=== PATIENT | female | born 1955 | race Caucasian/White ===

== ENCOUNTER → 2017-08-06 11:45 | Outpatient (CLI) | payer BC, SELFPAY ==
--- NOTE | 2017-08-06 11:45 | DT_ITS ---
This patient was seen during an EMR downtime August 03, 2017 - August 10, 2017. This patient may have a combination of paper and electronic documentation or all paper documentation. All documentation is viewable within the e-chart portion of [employer] for each patient visit.
[2017-08-17 11:25] LABS: HPV Reflexed? NOT INDICATED
== END ==
PROVIDERS: Visit Provider Obstetrics & Gynecology
DX: Z12.4 Encounter for screening for malignant neoplasm of cervix (principal)
CPT/HCPCS: 88175; G0145

== ENCOUNTER → 2017-08-25 12:46 | Outpatient (CLI) | payer BC, SELFPAY ==
--- NOTE | 2017-08-25 12:51 | STE_ITS ---
Reason For Study: Chest Pain Stress Results Protocol: Stress Echocardiogram Maximum Predicted HR: 156 bpm Target HR: 133 bpm% Maximum Pr edicted HR: 88 % DurationHeart Rate Stage (mm:ss) (bpm) BP BASELINE 66 174/90 MARTIN PROTOCOL- STAGE 1 3:00 12 1 170/80 MARTIN PROTOCOL- STAGE 2 2:30 13 7 180/90 RECOVERY 81 160/88 Stress Duration: 5:30 mm:ss Maximum Stress HR: 137 bpmM ETS: 7 Baseline Echocardiogram Findings Stress Echo Wall motion Data Resting WMIntermediate WMStress WM Resting Wall Motion Wall Motion Stress All segments Normal. All segments Hyperkinetic. Ejection Fraction 60 %. Ejection Fraction 70 %. Stress Results Heart rate response: appropriate Blood pressure response: resting hypertension - appropriate response Arrhythmias: isolated PVC during exercise / isolated PAC during recovery Functional capacity: average Stopped secondary to: dyspnea. EKG Data Baseline ECG: NSR. Exercise ECG: no obvious ECG changes. Symptoms with Stress No c/o chest discomfort during exercise / recovery. Interpretation Summary Negative (adequate) Stress Echocardiogram Ordering Physician: Karthikeyan Castro Referring Physician: Karthikeyan Castro Performed By: Brigitte Richmond, PRANAV, RVT
== END ==
PROVIDERS: Family Provider Family Medicine; PCP Family Medicine; Visit Provider Family Medicine
DX: R07.9 Chest pain, unspecified (principal)
CPT/HCPCS: 93017; 93350

== ENCOUNTER → 2017-09-08 11:23 | Outpatient (CLI) | payer BC, SELFPAY ==
[2017-09-08 15:40] LABS: Anion Gap 9 (5-15); BUN 17 mg/dL (7-18); BUN/Creat Ratio 24.4 RATIO (10-20); Calcium,Total 9.5 mg/dL (8.5-10.1); Chloride 102 mmol/L (98-107); EST Glomerular Filtration Rate 90 mL/min (>60); Est Glom Filt Rate - Afr Amer 109 mL/min (>60); Glucose 96 mg/dL (74-106); Potassium 3.8 mmol/L (3.5-5.1); Sodium Level 140 mmol/L (136-145)
== END ==
PROVIDERS: Family Provider Family Medicine; PCP Family Medicine; Visit Provider Nurse Practitioner Adult Health
DX: I10 Essential (primary) hypertension (principal)
CPT/HCPCS: 36415; 80048

== ENCOUNTER → 2018-02-16 09:55 | Outpatient (CLI) | payer BC, SELFPAY ==
[2018-02-16 12:25] LABS: Anion Gap 9 (5-15); BUN 13 mg/dL (7-18); BUN/Creat Ratio 21.2 RATIO (10-20); Calcium,Total 9.5 mg/dL (8.5-10.1); Chloride 103 mmol/L (98-107); Cholesterol 232 mg/dL (200); Creatinine, Serum 0.61 mg/dL (0.55-1.02); EST Glomerular Filtration Rate 104 mL/min (>60); Est Glom Filt Rate - Afr Amer 126 mL/min (>60); Glucose 87 mg/dL (74-106); High Density Lipoprotein 72 mg/dL; Sodium Level 141 mmol/L (136-145); Triglycerides 122 mg/dL; Very Low Density Lipoprotein 24 mg/dL (5-40)
--- OUTSIDE RECORDS SUMMARY | 2018-05-20 17:01 | XMS RPT_ITS ---
:1955 Author Organization OHIP Care Team Providers Name Role Phone Megha Hughes Attending Unavailable Kannan Castro Primary Care Unavailable Jeaneth Justice Attending Unavailable Kannan Castro Attending Unavailable Matthew, Kannan Referring Unavailable Kannan Castro Primary Care Unavailable Megha Hughes Attending Unavailable Castro, Kannan Primary Care Unavailable Clark Newton Attending Unavailable PROBLEMS PROBLEMS DATE TYPE CONDITION / CODE ATTENDING STATUS SOURCE 08/25/2017 Unknown R07.9 - Chest Kannan Castro Active [place] pain, unspecified Community / R07.9(ICD-10) Hospital Repository 08/27/2017 Unknown Z12.4 - Encounter Jeaneth Justice Active Deja for screening for [facility] neoplasm of Repository cervix / Z12.4(ICD-10) PROCEDURES PROCEDURES No Procedure Records FoundRESULTS RESULTS BASIC METABOLIC Collected: 02/16/2018 Status: F Source: DEJA PROFILE (BMP) 9:59 AM [facility] REPOSITORY TYPE CODE TESTS RESULT OUT OF RANGE REFERENCE UNITS LAB L501.0100 74-106 mg/dL Normal GLU 87 Result Comment: Please note revised GLUCOSE reference range effective 2017. LAB L501.1000 7-18 mg/dL Normal BUN 13 LAB L501.1100 0.55-1.02 mg/dL Normal CREAT,SERUM 0.61 Result Comment: The validity of the calculated GFR AND GFRAA in patients over 70 years has not been determined. Clinical correlation is essential. LAB L501.1110 >60 mL/min Normal EST GFR 104 Result Comment: Non- GFR Calc LAB L501.1115 >60 mL/min Normal EST GFR - AA 126 Result Comment: GFR Calc LAB L501.1300 10-20 RATIO High BUN/CRE 21.2 LAB L501.2200 8.5-10.1 mg/dL CA Normal 9.5 LAB L501.5300 136-145 mmol/L NA Normal 141 LAB L501.5600 3.5-5.1 mmol/L K Normal 4.0 LAB L501.5900 98-107 mmol/L CL Normal 103 LAB L501.6100 21.0-32.0 mmol/L Normal CO2 29.0 LAB L501.6200 5-15 Normal GAP 9 Performed By: #### L500.2500, L500.4100 #### [facility] [address], [address] LIPID PROFILE Collected: 02/16/2018 Status: F Source: DEJA 9:59 AM [facility] REPOSITORY TYPE CODE TESTS RESULT OUT OF RANGE REFERENCE UNITS LAB L501.4900 200 mg/dL High CHOL 232 Result Comment: <200 mg/dL Desirable 200-240 mg/dL Borderline >240 mg/dL High Risk LAB L501.5000 mg/dL Normal TRIG 122 Result Comment: The drugs N-Acetylcysteine and Metamizole may falsely depress this assay. Serum Triglycerides Reference Interval Normal <150 mg/dL Borderline high 150 - 199 mg/dL High 200 - 499 mg/dL Very High > or = 500 mg/dL LAB L501.6400 mg/dL Normal HDL 72 Result Comment: The drugs N-Acetylcysteine and Metamizole may falsely depress this assay. Reference Range HDL <40 mg/dL Low HDL Cholesterol HDL >or= 60 mg/dL High HDL Cholesterol LAB L501.6500 0-130 mg/dL High LDL 136 LAB L501.6600 5-40 mg/dL Normal VLDL 24 Performed By: #### L500.2500, L500.4100 #### [facility] [address] [place], [address] BASIC METABOLIC Collected: 09/08/2017 Status: F Source: DEJA PROFILE (BMP) 11:24 AM [facility] REPOSITORY Order Comment: Order Date: 08/27/17 Order Info: 0667-1 - BMP TYPE CODE TESTS RESULT OUT OF RANGE REFERENCE UNITS LAB L501.0100 74-106 mg/dL Normal GLU 96 Result Comment: Please note revised GLUCOSE reference range effective 2017. LAB L501.1000 7-18 mg/dL Normal BUN 17 LAB L501.1100 0.55-1.02 mg/dL Normal CREAT,SERUM 0.70 Result Comment: The validity of the calculated GFR AND GFRAA in patients over 70 years has not been determined. Clinical correlation is essential. LAB L501.1110 >60 mL/min Normal EST GFR 90 Result Comment: Non- GFR Calc LAB L501.1115 >60 mL/min Normal EST GFR - AA 109 Result Comment: GFR Calc LAB L501.1300 10-20 RATIO High BUN/CRE 24.4 LAB L501.2200 8.5-10.1 mg/dL CA Normal 9.5 LAB L501.5300 136-145 mmol/L NA Normal 140 LAB L501.5600 3.5-5.1 mmol/L K Normal 3.8 LAB L501.5900 98-107 mmol/L CL Normal 102 LAB L501.6100 21.0-32.0 mmol/L Normal CO2 29.0 LAB L501.6200 5-15 Normal GAP 9 Performed By: #### L500.2500 #### [facility] [address] [place], [address] STRESS TEST ECHO W/O Observed: 08/25/2017 Status: F Source: [place] CONTRAST 4:49 PM [facility] REPOSITORY [facility] Cardiovascular Services [address] [facility] [place] [address] Stress Test Echo w/o Contrast MR#: [id number] Acct: [id number] Name: KAREN BALLARD Rep #: [id number] : 1955 62 From: Clark Newton MD Primary Care: Kannan Castro MD Status: REG CLI Ordering Dr: Kannan Castro MD Sex: F C Reason For Study: Chest Pain Stress Results Protocol: Stress Echocardiogram Maximum Predicted HR: 156 bpm Target HR: 133 bpm% Maximum Pr edicted HR: 88 % DurationHeart Rate Stage (mm:ss) (bpm) BP BASELINE 66 174/90 MARTIN PROTOCOL- STAGE 1 3:00 12 1 170/80 MARTIN PROTOCOL- STAGE 2 2:30 13 7 180/90 RECOVERY 81 160/88 Stress Duration: 5:30 mm:ss Maximum Stress HR: 137 bpmM ETS: 7 Baseline Echocardiogram Findings Stress Echo Wall motion Data Resting WMIntermediate WMStress WM Resting Wall Motion Wall Motion Stress All segments Normal. All segments Hyperkinetic. Ejection Fraction 60 %. Ejection Fraction 70 %. Stress Results Heart rate response: appropriate Blood pressure response: resting hypertension - appropriate response Arrhythmias: isolated PVC during exercise / isolated PAC during recovery Functional capacity: average Stopped secondary to: dyspnea. EKG Data Baseline ECG: NSR. Exercise ECG: no obvious ECG changes. Symptoms with Stress No c/o chest discomfort during exercise / recovery. Interpretation Summary Negative (adequate) Stress Echocardiogram Ordering Physician: Kannan Castro Referring Physician: Kannan Castro Performed By: Brigitte Richmond RDCS, RVT 08/25/17 8659 Date Clark Newton MD CC: Kannan Castro MD Date Dictated: 08/25/17 1334 Date Transcribed: 08/25/171648 Crocheter Hand: Signed DOWNTIME REPORT Observed: 08/20/2017 Status: F Source: DEJA 2:07 PM [facility] REPOSITORY [facility] Medical Records Department [address] [place] [address] Downtime Report MR#: [id number] Acct: [id number] Name: KAREN BALLARD Rep #: [id number] : 1955 62 From: Jacinto Castro PCP: Status: REG CLI This patient was seen during an EMR downtime August 03, 2017 - August 10, 2017. This patient may have a combination of paper and electronic documentation or all paper documentation. All documentation is viewable within the e-chart portion of [employer] for each patient visit. PAP I-G W/RFX HRHPV Collected: 08/06/2017 Status: F Source: DEJA 11:45 AM [facility] REPOSITORY Order Comment: CYTOLOGY INFORMATION: - CLINICAL INFORMATION: POSTMENOPAUSAL - DATE LMP/MENOPAUSE: POST MENOPAUSE - COLLECTION VIAL: Thin Prep Vial - OFFICE COMMUNICATION PROFESSOR SOURCE: CERVICAL/ENDOCERVICAL - COLLECTION TECHNIQUE: BRUSH/SPATULA Specimen Comment: Source.............Cervix;Endocervix Specimen Comment: Other..............Post Menopausal Specimen Comment: No. of containers..01 ThinPrep Vial Specimen Comment: A duplicate report has been generated due to demographic Specimen Comment: updates. TYPE CODE TESTS RESULT OUT OF RANGE REFERENCE UNITS LAB L7400.0800 . Normal DIAGN Comment Result Comment: NEGATIVE FOR INTRAEPITHELIAL LESION AND MALIGNANCY. LAB L7400.0900 . Normal ADEQ Comment Result Comment: Satisfactory for evaluation. Endocervical and/or squamous metaplastic cells (endocervical component) are present. LAB L7400.1400 . Normal PERFORM Comment Result Comment: [place], Product Safety Professional (ASCP) LAB L7400.2575 . Normal TEST METHOD Comment Result Comment: This liquid based ThinPrep(R) pap test was screened with the use of an image guided system. LAB L7400.2600 . Normal . COMM LAB L7400.2700 . Normal PAPSMR Comment Result Comment: The Pap smear is a screening test designed to aid in the detection of premalignant and malignant conditions of the uterine cervix. It is not a diagnostic procedure and should not be used as the sole means of detecting cervical cancer. Both false-positive and false-negative reports do occur. LAB L7400.2800 . Normal HPV RFLX Comment Result Comment: The HPV DNA reflex criteria were not met with this specimen result therefore, no HPV testing was performed. Performed at: [address] [id number] Oil Well Pumper: Noemi Poe MD, Phone: [phone] Performed By: #### L7400.0350 #### [facility] (refer to report for specific site) refer to report for address and phone number ALLERGIES ALLERGIES DATE TYPE / CODE NAME / CODE REACTION SEVERITY SOURCE 08/29/2014 Drug nickel/F0060 Rash Unknown [facility] Allergy/4160 [address]155(Formerly [facility] [address](SNOMED ) Repository CT) ENCOUNTERS ENCOUNTERS ADMIT/DISCHARGE ACCOUNT ADMITTING ENCOUNTER LOCATION SOURCE NUMBER [facility] 02/16/2018 [id number] Ambulatory Deja Deja 1 [facility] ing:MFPLAB Repository 09/08/2017 [id number] Ambulatory [place] Redmon 7 [facility] ing:MFPLAB Repository 08/25/2017 [id number] Ambulatory [place] Redmon 5 [facility] ing:[facility] Repository 08/25/2017 [id number] Ambulatory BMSBuilding:W Deja 7 [facility] Hospital Repository 08/06/2017 [id number] Ambulatory [place] Red[place] 3 [facility] Hospital ing:[facility]SPEC Repository PAYERS PAYERS ENCOUNTER GUARANTOR PAYER SUBSCRIBER SOURCE 02/16/2018 Karen S Primary Karen S [place] [id number] E Insurance:ANTHEMPolic CosentinoDOB: [place]: [id number] [id number] Repository [address]Unn: (330) Date:8758-73-84SX [phone] () KATALINA SMITH [address]HC: 02/16/2018 Secondary NOT GIVENUNK Deja Insurance:SELF PAY [facility] Number: Effective Repository Date:2018-02-16 09/08/2017 Karen S Primary Karen S [place] [id number] E Insurance:ANTHEMPolic CosentinoDOB: Formerly [facility] [place] Number: [id number], [place] [id number] Repository [address]Cvj: (330) Date:9999-03-36ND [phone] () KATALINA SMITH [address]LS: 09/08/2017 Secondary NOT GIVENUNK Deja Insurance:SELF PAY [facility] Number: Effective Repository Date:2017-09-08 08/25/2017 Karen S Primary Karen S Deja [id number] E Insurance:ANTHEMPolic CosentinoDOB: Formerly [facility] [place] Number: [id number], [place] [id number] Repository [address]Yov: (330) Date:0113-24-25VJ [phone] () KATALINA SMITH [address]WK: 08/25/2017 Secondary NOT GIVENUNK Deja Insurance:SELF PAY [facility] Number: Effective Repository Date:2017-08-21 08/25/2017 Karen S Primary Karen S [place] [id number] E Insurance:ANTHEMPolic CosentinoDOB: Community [place] Number: [id number], [place] [id number] Repository [address]Jfw: (330) Date:0951-00-30WD [phone] () [id number], [place] [address]UL: 08/25/2017 Secondary NOT GIVENUNK Deja Insurance:SELF PAY [facility] Number: Effective Repository Date:2017-08-25 08/06/2017 Karen S Primary Karen S [place] [id number] E Insurance:ANTHEMPolic CosentinoDOB: Formerly [facility] [place] Number: [id number], [place] [id number] Repository [address]Hac: (330) Date:4125-29-17YL [phone] () [place], [place] [address]UD: 08/06/2017 Secondary NOT GIVENUNK Deja Insurance:SELF PAY [facility] Number: Effective Repository Date:2017-08-06
== END ==
PROVIDERS: Family Provider Family Medicine; PCP Family Medicine; Visit Provider Nurse Practitioner Adult Health
DX: Z13.220 Encounter for screening for lipoid disorders (principal); Z13.1 Encounter for screening for diabetes mellitus
CPT/HCPCS: 36415; 80048; 80061

== ENCOUNTER → 2018-09-01 10:41 | Outpatient (CLI) | payer BC, SELFPAY ==
--- NOTE | 2018-09-01 10:44 | BI_ITS ---
MAMMOGRAPHY - BILATERAL SCREENING REASON FOR EXAM: Female, 63 years old. Routine annual screening examination. PERTINENT HISTORY: Aunts with breast cancer. Remote right stereotactic breast biopsy. TECHNIQUE: Digital bilateral breast andres (3D mammographic acquisition) in the CC and MLO projections. 2-D mediolateral oblique (MLO) and craniocaudad (CC) views of both breasts were obtained. CAD: Full Field Digital Mammography with Computer Added Detection was performed. COMPARISON: Comparison is made with prior study dated September 18, 2016. FINDINGS: Breast Composition: The breasts are extremely dense, which lowers the sensitivity of mammography. There are no dominant masses or suspicious calcifications. A tissue clip marker is seen in the slightly upper medial aspect of the right breast. Stable appearance of the bilateral axillary lymph nodes. No other significant abnormalities are identified. There has been no significant change since the prior study. BI/SCREEN MAMM (CAD) W/ANDRES BILAT IMPRESSION: Stable bilateral screening mammogram. Yearly follow-up mammogram recommended. (A) ASSESSMENT CATEGORY: BIRADS Category 2: Benign. A letter regarding these results will be sent to the patient by the facility within 30 days. Approximately 10% of breast cancers are not detected by mammography. A normal mammogram should not delay biopsy of a clinically suspicious abnormality. [id number] Electronically Signed: Donovan Bullard, at 12:31 EDT , Service support ,
== END ==
PROVIDERS: Family Provider Family Medicine; PCP Family Medicine; Referring Provider Obstetrics & Gynecology; Visit Provider Obstetrics & Gynecology
DX: Z12.31 Encounter for screening mammogram for malignant neoplasm of breast (principal)
CPT/HCPCS: 77063; 77067

== ENCOUNTER → 2019-02-16 11:41 | Outpatient (CLI) | payer MEDICARE, BC, SELFPAY ==
[2019-02-16 14:04] LABS: Absolute Neutrophil Count 3.9 X10^3/uL (2.0-7.7); Basophil# 0.03 X10^3/uL; Basophil% 0.5 % (0-1); Eosinophils% 3.3 % (0-5); Hematocrit 42.4 % (37-47); Hemoglobin 14.5 g/dL (12.0-15.0); Mean Corp Hgb Conc 34.2 g/dL (32-36); Mean Corpuscular Hgb 33.7 pg (27.0-32.0); Mean Corpuscular Volume 98.6 fL (81-99); Mean Platelet Vol. 9.8 fl (6.2-12.0); Monocyte# 0.62 X10^3/uL; Monocyte% 10.4 % (0-10); NRBC Flagged by Analyzer 0 % (0-5); Neutrophil # 3.92 X10^3/uL (2.7-7.7); Neutrophil % 65.5 % (47-70); Platelet Count 355 K/mm3 (150-450); RBC Distribution Width SD 46.5 fl (35.1-43.9)
[2019-02-16 14:25] LABS: ALB/GLOB Ratio 1.2 RATIO (0.9-2.4); AST(SGOT) 16 U/L (15-37); Alanine Aminotransfer ALT/SGPT 20 U/L (13-56); Albumin, Serum 4.1 g/dL (3.2-5.0); Alkaline Phosphatase 68 U/L (45-117); Anion Gap 6 (5-15); BUN 15 mg/dL (7-18); BUN/Creat Ratio 23.1 RATIO (10-20); Calcium,Total 9.5 mg/dL (8.5-10.1); Chloride 103 mmol/L (98-107); Creatinine, Serum 0.65 mg/dL (0.55-1.02); EST Glomerular Filtration Rate 97 mL/min (>60); Est Glom Filt Rate - Afr Amer 117 mL/min (>60); Globulin 3.4 g/dL (2.2-4.2); Glucose 97 mg/dL (74-106); Protein, Total 7.5 g/dL (6.4-8.2); Sodium Level 138 mmol/L (136-145); Thyroid Stim Hormone (TSH) 0.78 uIU/mL (0.358-3.74)
== END ==
PROVIDERS: Family Provider Family Medicine; PCP Family Medicine; Referring Provider Family Medicine; Visit Provider Nurse Practitioner Adult Health
DX: R53.83 Other fatigue (principal)
CPT/HCPCS: 36415; 80053; 84443; 85025

== ENCOUNTER → 2019-03-16 15:05 | Outpatient (CLI) | payer MEDICARE, BC, SELFPAY ==
--- NOTE | 2019-03-16 15:10 | ECHOD_ITS ---
Reason For Study: MURMUR Procedure This was a 2D Doppler, Color Flow transthoracic echocardiogram. Exam performed in department. Left Ventricle Normal size and thickness. The estimated ejection fraction is 65 %. Stage 1 diastolic dysfunction. No regional wall motion abnormalities noted. Right Ventricle Normal size and thickness. Normal systolic function. Atria Normal left atrium. Normal right atrium. Normal atrial septum. Mitral Valve The mitral valve is structurally normal. No prolapse or stenosis seen. Tricuspid Valve Normal tricuspid valve. Trivial tricuspid valve insufficiency. Right ventricular systolic pressure estimated to be 32 mmHg. Aortic Valve Trisinus/trileaflet aortic valve. Aortic sclerosis, no stenosis. Pulmonic Valve Normal pulmonic valve. Great Vessels Normal aortic root. Normal arch. Normal inferior vena cava. Inferior vena cava collapse with sniff. Pericardium/Pleural No pericardial effusion. MMode/2D Measurements & Calculations LVIDd: 3.9 cm IVSd: 0.89 cm Ao root diam: 3.0 cm LVIDs: 2.6 cm LVPWd: 0.89 cm RVDd: 2.9 cm FS: 32.1 % LAV(MOD-bp): 41.4 ml LVAd ap4: 25.1 cm2 SV(MOD-sp4): 41.6 ml LAV(MOD-bp) Indexed: 28.6 ml/m2 EDV(MOD-sp4): 71.1 ml LAV(MOD-sp2): 32.8 ml EDV(sp4-el): 75.5 ml LAV(MOD-sp4): 46.0 ml LVAs ap4: 14.1 cm2 ESV(MOD-sp4): 29.4 ml ESV(sp4-el): 30.4 ml EF(MOD-sp4): 58.6 % EF(sp4-el): 59.8 % SV(sp4-el): 45.2 ml LA A4 area: 17.0 cm2 LA dimension(2D): 2.9 cm RA A4 area: 11.0 cm2 Time Measurements MV dec time: 0.17 sec Doppler Measurements & Calculations MV E max francis: 96.7 cm/sec Lat Peak E' Francis: 8.6 cm/sec Med Peak E' Francis: 8.3 cm/sec MV A max francis: 115.7 cm/sec E/E' lat: 11.2 E/E' med: 11.7 MV E/A: 0.84 Ao V2 max: 147.3 cm/sec LV V1 max: 127.7 cm/sec PA V2 max: 103.4 cm/sec Ao max P.7 mmHg LV V1 max P.5 mmHg TR max francis: 238.3 cm/sec TR max P.8 mmHg Interpretation Summary The estimated ejection fraction is 65 %. Stage 1 diastolic dysfunction. Trivial tricuspid valve insufficiency. Right ventricular systolic pressure estimated to be 32 mmHg. Compared to echo report dated 09/11/2006, LV function has remained the same but RVSP has increased from 20 to 32 mmHg. Ordering Physician: Karthikeyan Campos Referring Physician: GRAY HOUSTON Performed By: Julieth Bartlett, PRANAV, RVT
== END ==
PROVIDERS: Family Provider Family Medicine; PCP Family Medicine; Referring Provider Family Medicine; Visit Provider Family Medicine
DX: R01.1 Cardiac murmur, unspecified (principal)
CPT/HCPCS: 93306

== ENCOUNTER → 2019-04-08 | Outpatient (CLI) | payer MEDICARE, BC, SELFPAY ==
[2019-04-08 17:40] LABS: Cholesterol 269 mg/dL (200); High Density Lipoprotein 95 mg/dL; Magnesium 1.9 mg/dL (1.6-2.6); Triglycerides 60 mg/dL; Very Low Density Lipoprotein 12 mg/dL (5-40)
== END | disposition home or self-care (01) ==
LOC: MTLAB 15:28
PROVIDERS: PCP Family Medicine; Referring Provider Family Medicine; Visit Provider Family Medicine
DX: E55.9 Vitamin D deficiency, unspecified (principal); E78.5 Hyperlipidemia, unspecified; R00.2 Palpitations
CPT/HCPCS: 36415; 80061; 82306; 83735

== ENCOUNTER → 2019-07-06 | Outpatient (CLI) | payer MEDICARE, BC, SELFPAY ==
[2019-07-06 17:46] LABS: Absolute Lymphocyte Count 1.42 X10^3/uL (0.83-4.51); Absolute Neutrophil Count 4.5 X10^3/uL (2.0-7.7); Basophil# 0.03 X10^3/uL; Basophil% 0.5 % (0-1); Eosinophil# 0.05 X10^3/uL; Eosinophils% 0.8 % (0-5); Hematocrit 42.4 % (37-47); Hemoglobin 14.4 g/dL (12.0-15.0); Lymphocyte # 1.42 X10^3/ul (4.0); Lymphocyte % 21.4 % (19-41); Mean Platelet Vol. 9.6 fl (6.2-12.0); Monocyte# 0.63 X10^3/uL; Monocyte% 9.5 % (0-10); NRBC Flagged by Analyzer 0 % (0-5); Neutrophil # 4.48 X10^3/uL (2.7-7.7); Neutrophil % 67.5 % (47-70); Platelet Count 333 K/mm3 (150-450); RBC Distribution Width CV 13.2 % (11.6-14.6); RBC Distribution Width SD 46.7 fl (35.1-43.9); Red Blood Count 4.37 M/mm3 (4.2-5.4); White Blood Count 6.6 K/mm3 (4.4-11.0)
[2019-07-06 18:21] LABS: ALB/GLOB Ratio 1.3 RATIO (0.9-2.4); AST(SGOT) 18 U/L (15-37); Alanine Aminotransfer ALT/SGPT 18 U/L (13-56); Albumin, Serum 4.3 g/dL (3.2-5.0); Alkaline Phosphatase 85 U/L (45-117); Anion Gap 8 (5-15); BUN 11 mg/dL (7-18); BUN/Creat Ratio 17.9 RATIO (10-20); Calcium,Total 9.7 mg/dL (8.5-10.1); Chloride 99 mmol/L (98-107); Cholesterol 263 mg/dL (200); Creatinine, Serum 0.62 mg/dL (0.55-1.02); EST Glomerular Filtration Rate 103 mL/min (>60); Est Glom Filt Rate - Afr Amer 125 mL/min (>60); Globulin 3.3 g/dL (2.2-4.2); Glucose 94 mg/dL (74-106); High Density Lipoprotein 85 mg/dL; Potassium 3.8 mmol/L (3.5-5.1); Protein, Total 7.6 g/dL (6.4-8.2); Sodium Level 136 mmol/L (136-145); Triglycerides 164 mg/dL; Very Low Density Lipoprotein 33 mg/dL (5-40)
== END | disposition home or self-care (01) ==
LOC: MFPLAB 15:43
PROVIDERS: Family Medicine; PCP Family Medicine; Visit Provider Family Medicine
DX: I10 Essential (primary) hypertension (principal); E78.5 Hyperlipidemia, unspecified
CPT/HCPCS: 36415; 80053; 80061; 85025

== ENCOUNTER → 2020-02-03 11:35 | Outpatient (CLI) | payer MEDICARE, BC, SELFPAY ==
[2020-02-03 15:09] LABS: Absolute Lymphocyte Count 1.18 X10^3/uL (0.83-4.51); Absolute Neutrophil Count 2.7 X10^3/uL (2.0-7.7); Basophil# 0.05 X10^3/uL; Basophil% 1.1 % (0-1); Eosinophil# 0.18 X10^3/uL; Eosinophils% 3.9 % (0-5); Hemoglobin 14.7 g/dL (12.0-15.0); Lymphocyte # 1.18 X10^3/ul (4.0); Lymphocyte % 25.3 % (19-41); Mean Corp Hgb Conc 32.7 g/dL (32-36); Mean Corpuscular Volume 100.9 fL (81-99); Mean Platelet Vol. 10.1 fl (6.2-12.0); Monocyte# 0.59 X10^3/uL; Monocyte% 12.6 % (0-10); NRBC Flagged by Analyzer 0 % (0-5); Neutrophil # 2.66 X10^3/uL (2.7-7.7); Neutrophil % 56.9 % (47-70); Platelet Count 382 K/mm3 (150-450); RBC Distribution Width CV 13.4 % (11.6-14.6); RBC Distribution Width SD 49.6 fl (35.1-43.9); Red Blood Count 4.46 M/mm3 (4.2-5.4); White Blood Count 4.7 K/mm3 (4.4-11.0)
[2020-02-03 15:48] LABS: ALB/GLOB Ratio 1.1 RATIO (0.9-2.4); AST(SGOT) 17 U/L (15-37); Alanine Aminotransfer ALT/SGPT 18 U/L (13-56); Albumin, Serum 4.1 g/dL (3.2-5.0); Alkaline Phosphatase 82 U/L (45-117); Anion Gap 8 (5-15); BUN 15 mg/dL (7-18); Calcium,Total 9.7 mg/dL (8.5-10.1); Chloride 102 mmol/L (98-107); Cholesterol 258 mg/dL (200); Creatinine, Serum 0.65 mg/dL (0.55-1.02); EST Glomerular Filtration Rate 96 mL/min (>60); Est Glom Filt Rate - Afr Amer 116 mL/min (>60); Globulin 3.6 g/dL (2.2-4.2); Glucose 101 mg/dL (74-106); High Density Lipoprotein 74 mg/dL; Potassium 3.6 mmol/L (3.5-5.1); Protein, Total 7.7 g/dL (6.4-8.2); Sodium Level 138 mmol/L (136-145); Triglycerides 141 mg/dL; Very Low Density Lipoprotein 28 mg/dL (5-40)
== END ==
PROVIDERS: Family Medicine; PCP Family Medicine; Referring Provider Family Medicine; Visit Provider Family Medicine
DX: I10 Essential (primary) hypertension (principal); E78.5 Hyperlipidemia, unspecified; E55.9 Vitamin D deficiency, unspecified
CPT/HCPCS: 36415; 80053; 80061; 82306; 85025

== ENCOUNTER → 2020-02-14 12:13 | Outpatient (CLI) | payer MEDICARE, BC, SELFPAY ==
--- NOTE | 2020-02-14 12:17 | CT_ITS ---
STUDY: LOW DOSE CT LUNG CANCER SCREENING REASON FOR EXAM: Female, 64 years old. TOBACCO ABUSE, 50 YR SMOKER X 1 PPD, ST=972, BREAST BX DONE-BENIGN RADIATION DOSAGE (If Supplied By Facility): CTDIvol = ( 2.01 ) mGy, DLP = ( 62.68 ) mGycm TECHNIQUE: No contrast was administered. Low dose technique was utilized (average mAS-38 and kVp 120). 1.25 mm axial source images with a slice interval of 1.25-mm were reconstructed in lung windows. 2.5 mm axial source images with a slice interval of 2.5-mm were reconstructed in lung windows. 5.0 mm axial source images with a slice interval of 5.0-mm were reconstructed in soft tissue windows. Nodule measured using lung windows on PACS and/or independent workstation with automated measurement of minimum and maximum diameter. Nodule measurement reported as average diameter rounded to the nearest whole number. Growth is defined as an increase ins size of greater than 1.5 mm. COMPARISON: None. NODULES: No suspicious nodules are seen. Emphysema: Minimal linear scarring in the anterior medial aspect of the right middle lobe. There is a 9.4 mm bulla in the left lower lobe. Endobronchial lesion: Aorta: Calcific plaque at the level of the aortic arch. Coronary arteries: Coronary artery calcification. Heart: Unremarkable. Pulmonary artery: Unremarkable. Mediastinal nodes: Calcified right hilar lymph nodes. Other chest and abdominal findings: CT/Low Dose CT Lung Screening IMPRESSION: Lung-RADS category 2 - Continue annual screening with LDCT in 12 months. IMPORTANT NOTES FOR USE: ACR Lung-RADS Version 1.0 Assessment Categories Release Date: June 27, 2013 Category: Coded 0-4 bases on nodule(s) with highest degree of suspicion. Negative screen is defined as categories 1 and 2; a positive screen is defined as categories 3 and 4. Category 3 and 4A nodules that are unchanged on interval CT should be coded as category 2, and individuals returned to screening in 12 months. Category 4X: Category 3 or 4 nodules with additional imaging findings that increase the suspicion of lung cancer, such as spiculation, GGN that doubles in size in 1 year, enlarged lymph notes, etc. Category Modifiers: S (significant finding unrelated to lung cancer) and C (prior history of treated lung cancer) may be added to the 0-4 Lung-RADS Electronically Signed: Donovan Bullard, at 13:06 EST , Service support ,
== END ==
PROVIDERS: PCP Family Medicine; Referring Provider Family Medicine; Visit Provider Family Medicine
DX: F17.210 Nicotine dependence, cigarettes, uncomplicated (principal); Z12.2 Encounter for screening for malignant neoplasm of respiratory organs
CPT/HCPCS: G0297

== ENCOUNTER → 2020-03-29 09:23 | Outpatient (CLI) | payer MEDICARE, BC, SELFPAY ==
--- NOTE | 2020-03-29 12:39 | PFT ---
INTRODUCTION: The patient is a 65-year-old female that presents for pulmonary function studies secondary to a diagnosis of shortness of breath. Respiratory therapy reports good patient effort. Bronchodilators were used during testing. INTERPRETATION: Forced expiration spirometry demonstrates no evidence of a large airways obstructive ventilatory defect. There was no significant response to aerosolized bronchodilators, based upon strict ATS criteria. Spirograms are of good quality and plateau normally. Body plethysmography was performed and reveals lung volumes to be within normal limits. Diffusing capacity by single breath CO is also within normal limits at 80% of predicted. IMPRESSION: Grossly normal PFTs without any evidence of COPD.
== END ==
PROVIDERS: PCP Family Medicine; Referring Provider Family Medicine; Visit Provider Family Medicine
DX: R06.02 Shortness of breath (principal)
CPT/HCPCS: 94060; 94726; 94729

== ENCOUNTER → 2020-06-26 | Outpatient (CLI) | payer MEDICARE, BC, SELFPAY | END | disposition home or self-care (01) | PROVIDERS: Visit Provider Family Medicine | DX: J01.90 Acute sinusitis, unspecified (principal) | CPT/HCPCS: 87635; U0002 ==

== ENCOUNTER → 2020-11-02 14:28 | Outpatient (CLI) | payer MEDICARE, BC, SELFPAY ==
[2020-11-02 14:30] LABS: Bacteria 0 SEEN /hpf (None Seen); Mucous, Urine 0 SEEN /hpf (<or=2+); Red Blood Cells-Urine 0 SEEN /hpf (0-5); Squamous Epithelial Cells - UA 0 SEEN /hpf (5-10); White Blood Cells 0 SEEN /hpf (0-5)
[2020-11-02 17:38] LABS: Basophil# 0.06 X10^3/uL; Basophil% 0.7 % (0-1); Eosinophils% 1.2 % (0-5); Hematocrit 42.2 % (37-47); Hemoglobin 14.2 g/dL (12.0-15.0); Lymphocyte % 16.8 % (19-41); Mean Corp Hgb Conc 33.6 g/dL (32-36); Mean Corpuscular Hgb 33.6 pg (27.0-32.0); Mean Corpuscular Volume 99.8 fL (81-99); Mean Platelet Vol. 10.1 fl (6.2-12.0); Monocyte# 0.71 X10^3/uL; Monocyte% 8.5 % (0-10); NRBC Flagged by Analyzer 0 % (0-5); Neutrophil # 6.04 X10^3/uL (2.7-7.7); Neutrophil % 72.6 % (47-70); Platelet Count 396 K/mm3 (150-450); RBC Distribution Width CV 13.6 % (11.6-14.6); RBC Distribution Width SD 49.9 fl (35.1-43.9); Red Blood Count 4.23 M/mm3 (4.2-5.4); White Blood Count 8.3 K/mm3 (4.4-11.0)
[2020-11-02 17:42] LABS: Color, Urine Straw (Yellow); Glucose, Dipstick Normal (Normal); Ketone-Dipstick Negative (Negative); Leukocyte Esterase-Dipstick 25 /ul (Negative); Nitrite-Dipstick Negative (Negative); Occult Blood-Urine Negative /ul (Negative); Protein-Dipstick Negative (Negative); Specific Gravity, Urine 1.005 (1.002-1.030); Urine Bilirubin Dipstick Negative (Negative); Urine Clarity Clear (Clear); Urine Urobilinogen Normal (Normal)
[2020-11-02 17:52] LABS: Vitamin D,25 Hydroxy 48.4 ng/mL
[2020-11-02 18:07] LABS: ALB/GLOB Ratio 1.1 RATIO (0.9-2.4); AST(SGOT) 16 U/L (15-37); Alanine Aminotransfer ALT/SGPT 26 U/L (13-56); Alkaline Phosphatase 75 U/L (45-117); Anion Gap 4 (5-15); BUN 11 mg/dL (7-18); BUN/Creat Ratio 17.2 RATIO (10-20); Calcium,Total 9.2 mg/dL (8.5-10.1); Chloride 104 mmol/L (98-107); Cholesterol 226 mg/dL (200); Creatinine, Serum 0.64 mg/dL (0.55-1.02); EST Glomerular Filtration Rate 99 mL/min (>60); Est Glom Filt Rate - Afr Amer 119 mL/min (>60); Globulin 3.5 g/dL (2.2-4.2); Glucose 100 mg/dL (74-106); High Density Lipoprotein 80 mg/dL; Magnesium 1.9 mg/dL (1.6-2.6); Potassium 3.8 mmol/L (3.5-5.1); Protein, Total 7.5 g/dL (6.4-8.2); Sodium Level 137 mmol/L (136-145); Thyroid Stim Hormone (TSH) 0.62 uIU/mL (0.358-3.74); Triglycerides 77 mg/dL; Very Low Density Lipoprotein 15 mg/dL (5-40)
== END ==
PROVIDERS: PCP Family Medicine; Referring Provider Family Medicine; Visit Provider Family Medicine
DX: E78.5 Hyperlipidemia, unspecified (principal); E55.9 Vitamin D deficiency, unspecified; R00.2 Palpitations
CPT/HCPCS: 36415; 80053; 80061; 81001; 82306; 83735; 84443; 85025

== ENCOUNTER 2021-04-02 10:22 | Outpatient (CLI) | payer MEDICARE, BC, SELFPAY ==
--- NOTE | 2021-04-02 10:28 | BI_ITS ---
MAMMOGRAPHY - BILATERAL SCREENING REASON FOR EXAM: Female, 66 years old. Routine annual screening examination. PERTINENT HISTORY: Aunts with breast cancer. Remote right stereotactic breast biopsy. TECHNIQUE: Digital bilateral breast andres (3D mammographic acquisition) in the CC and MLO projections. 2-D mediolateral oblique (MLO) and craniocaudad (CC) views of both breasts were obtained. CAD: Full Field Digital Mammography with Computer Added Detection was performed. COMPARISON: Comparison is made with prior study dated 09/01/2018 and 09/18/2016. FINDINGS: Breast Composition: The breasts are extremely dense, which lowers the sensitivity of mammography. There are no dominant masses or suspicious calcifications. Stable benign-appearing bilateral axillary lymph nodes. A tissue clip marker is once again seen in the slightly upper medial aspect of the right breast. No other significant abnormalities are identified. There has been no significant change since the prior study. BI/SCRN MAMM (CAD)W/ANDRES BILAT IMPRESSION: Stable bilateral screening mammogram. Yearly follow-up mammogram recommended. (A) ASSESSMENT CATEGORY: BIRADS Category 2: Benign. A letter regarding these results will be sent to the patient by the facility within 30 days. Approximately 10% of breast cancers are not detected by mammography. A normal mammogram should not delay biopsy of a clinically suspicious abnormality. [id number] Electronically Signed: Donovan Bullard MD at 12:14 EST ,
--- NOTE | 2021-04-02 10:32 | BD_ITS ---
STUDY: DUAL ENERGY X-RAY ABSORPTIOMETRY / DXA REASON FOR EXAM: Female, 66 years old. M810 TECHNIQUE: Bone Mineral Density (BMD) measurements of lumbar spine and bilateral hips were obtained. COMPARISON: None. FINDINGS: Lumbar Spine (L1-L4): g/cm2 (0.851) / T-score (-1.8) / Z-score (0.2) Findings are suggestive of osteopenia with a moderate fracture risk. Left Femur Total: g/cm2 (0.802) / T-score (-1.2) / Z-score (0.2) Left Femoral Neck: g/cm2 (0.638) / T-score (-1.9) / Z-score (-0.2) Right Femur Total: g/cm2 (0.819) / T-score (-1.0) / Z-score (0.4) Right Femoral Neck: g/cm2 (0.643) / T-score (-1.9) / Z-score (-0.2) BD/Dexa Bone Density Study IMPRESSION: The patient is considered osteopenic as outlined below according to World Rami[employer] Organization (WHO) criteria with a moderate fracture risk. Reference Information: The T-score is the number of standard deviations above or below the standard which is normal for young adults at their peak bone mineral density. The World Health Organization (WHO) interprets the T-scores as follows: Above -1 Normal bone density Between -1 and -2.5 Osteopenia Equal to / or below -2.5 Osteoporosis As a practical clinical guideline, osteopenia may be graded as follows: Mild -1 through -1.5 Moderate -1.6 through -2.0 Severe -2.1 through -2.4 The Z-score is the number of standard deviations above or below age-matched controls. A Z-score of less than -1.5 would be considered abnormal. References: 1. NIH Osteoporosis and Related Bone Diseases www osteo.org 2. International Society for Clinical Densitometry www iscd.org 3. National Osteoporosis Foundation www nof.org Electronically Signed: Donovan Bullard MD at 15:48 EST ,
== END 2021-04-02 23:59 | disposition short-term general hospital (02) ==
LOC: OPBD 10:25
PROVIDERS: PCP Family Medicine; Visit Provider Family Medicine
DX: Z12.31 Encounter for screening mammogram for malignant neoplasm of breast (principal); M81.0 Age-related osteoporosis without current pathological fracture
CPT/HCPCS: 77063; 77067; 77080

== ENCOUNTER 2021-04-23 18:41 | Outpatient (CLI) | payer MEDICARE, BC, SELFPAY ==
--- NOTE | 2021-04-23 19:01 | CT_ITS ---
STUDY: LOW DOSE CT LUNG CANCER SCREENING REASON FOR EXAM: Female, 66 years old. LUNG CANCER SCREENING. Patient smoked 1 pack per day for 45 years. RADIATION DOSAGE (If Supplied By Facility): CTDIvol = ( 2.01 ) mGy, DLP = ( 64.19 ) mGycm TECHNIQUE: No contrast was administered. Low dose technique was utilized (average mAS-38 and kVp 120). 1.25 mm axial source images with a slice interval of 1.25-mm were reconstructed in lung windows. 2.5 mm axial source images with a slice interval of 2.5-mm were reconstructed in lung windows. 5.0 mm axial source images with a slice interval of 5.0-mm were reconstructed in soft tissue windows. Nodule measured using lung windows on PACS and/or independent workstation with automated measurement of minimum and maximum diameter. Nodule measurement reported as average diameter rounded to the nearest whole number. Growth is defined as an increase ins size of greater than 1.5 mm. COMPARISON: Comparison is made with prior study dated 02/14/2020. NODULES: No suspicious nodules are seen. Emphysema: Minimal linear scarring in the anterior aspect of the right middle lobe as well as in the posterior medial segment of the left lower lobe. Endobronchial lesion: None Aorta: Calcific plaques. Coronary arteries: Mild coronary artery calcifications. Heart: Unremarkable Pulmonary artery: Unremarkable Mediastinal nodes: Calcified right hilar lymph nodes. Other chest and abdominal findings: CT/Low Dose CT Lung Screening IMPRESSION: Lung-RADS category 2 - Continue annual screening with LDCT in 12 months. IMPORTANT NOTES FOR USE: ACR Lung-RADS Version 1.1 Assessment Categories Release Date: 2018 Category: Coded 0-4 bases on nodule(s) with highest degree of suspicion. Negative screen is defined as categories 1 and 2; a positive screen is defined as categories 3 and 4. Category 3 and 4A nodules that are unchanged on interval CT should be coded as category 2, and individuals returned to screening in 12 months. Category 4X: Category 3 or 4 nodules with additional imaging findings that increase the suspicion of lung cancer, such as spiculation, GGN that doubles in size in 1 year, enlarged lymph notes, etc. Category Modifiers: S (significant finding unrelated to lung cancer) Electronically Signed: Donovan Bullard MD at 9:13 EST ,
== END 2021-04-23 23:59 | disposition home or self-care (01) ==
LOC: CT 18:45
PROVIDERS: PCP Family Medicine; Visit Provider Nurse Practitioner Family
DX: Z12.2 Encounter for screening for malignant neoplasm of respiratory organs (principal); F17.210 Nicotine dependence, cigarettes, uncomplicated
CPT/HCPCS: 71271

== ENCOUNTER 2021-04-24 11:10 | Outpatient (CLI) | payer MEDICARE, BC, SELFPAY ==
[2021-04-24 11:29] LABS: Bacteria 0 SEEN /hpf (None Seen); Mucous, Urine 0 SEEN /hpf (<or=2+); Red Blood Cells-Urine 0 SEEN /hpf (0-5)
[2021-04-24 12:17] LABS: Color, Urine Yellow (Yellow); Glucose, Dipstick Normal (Normal); Ketone-Dipstick Negative (Negative); Leukocyte Esterase-Dipstick 500 /ul (Negative); Nitrite-Dipstick Negative (Negative); Occult Blood-Urine Negative /ul (Negative); Protein-Dipstick Negative (Negative); Specific Gravity, Urine 1.015 (1.002-1.030); Urine Bilirubin Dipstick Negative (Negative); Urine Clarity Sl. Cloudy (Clear); Urine Urobilinogen Normal (Normal)
[2021-04-24 12:21] LABS: Absolute Lymphocyte Count 1.51 X10^3/uL (0.83-4.51); Absolute Neutrophil Count 4.4 X10^3/uL (2.0-7.7); Basophil# 0.04 X10^3/uL; Basophil% 0.6 % (0-1); Eosinophil# 0.29 X10^3/uL; Eosinophils% 4.1 % (0-5); Hematocrit 42.7 % (37-47); Hemoglobin 14.1 g/dL (12.0-15.0); Lymphocyte # 1.51 X10^3/ul (0.83-4.51); Lymphocyte % 21.5 % (19-41); Mean Corpuscular Hgb 32.6 pg (27.0-32.0); Mean Corpuscular Volume 98.8 fL (81-99); Monocyte# 0.73 X10^3/uL; Monocyte% 10.4 % (0-10); NRBC Flagged by Analyzer 0 % (0-5); Neutrophil # 4.42 X10^3/uL (2.7-7.7); Neutrophil % 63.1 % (47-70); Platelet Count 324 K/mm3 (150-450); RBC Distribution Width CV 13.5 % (11.6-14.6); RBC Distribution Width SD 48.7 fl (35.1-43.9); Red Blood Count 4.32 M/mm3 (4.2-5.4)
[2021-04-24 12:26] LABS: Squamous Epithelial Cells - UA 0-5 SEEN /hpf (5-10); White Blood Cells 0-5 SEEN /hpf (0-5)
[2021-04-24 12:47] LABS: Vitamin D,25 Hydroxy 67.4 ng/mL
[2021-04-24 12:50] LABS: ALB/GLOB Ratio 1.1 RATIO (0.9-2.4); AST(SGOT) 13 U/L (15-37); Alanine Aminotransfer ALT/SGPT 17 U/L (13-56); Alkaline Phosphatase 76 U/L (45-117); Anion Gap 6 (5-15); BUN 16 mg/dL (7-18); BUN/Creat Ratio 28.5 RATIO (10-20); Calcium,Total 9.4 mg/dL (8.5-10.1); Chloride 103 mmol/L (98-107); Cholesterol 245 mg/dL (200); Creatinine, Serum 0.56 mg/dL (0.55-1.02); EST Glomerular Filtration Rate 114 mL/min (>60); Est Glom Filt Rate - Afr Amer 138 mL/min (>60); Globulin 3.6 g/dL (2.2-4.2); Glucose 104 mg/dL (74-106); High Density Lipoprotein 74 mg/dL; Potassium 3.7 mmol/L (3.5-5.1); Protein, Total 7.6 g/dL (6.4-8.2); Sodium Level 137 mmol/L (136-145); Triglycerides 183 mg/dL; Very Low Density Lipoprotein 37 mg/dL (5-40)
== END 2021-04-24 23:59 | disposition home or self-care (01) ==
LOC: MFPLAB 11:22
PROVIDERS: PCP Family Medicine; Referring Provider Family Medicine; Visit Provider Family Medicine
DX: I10 Essential (primary) hypertension (principal); E78.5 Hyperlipidemia, unspecified; E55.9 Vitamin D deficiency, unspecified
CPT/HCPCS: 36415; 80053; 80061; 81001; 82306; 85025

== ENCOUNTER → 2022-01-10 | Outpatient (CLI) | payer MEDICARE, BC, SELFPAY ==
[2022-01-10 09:06] LABS: Red Blood Cells-Urine 0 SEEN /hpf (0-5)
[2022-01-10 09:56] LABS: Absolute Neutrophil Count 3.5 X10^3/uL (2.0-7.7); Basophil# 0.06 X10^3/uL; Basophil% 1.1 % (0-1); Eosinophil# 0.22 X10^3/uL; Eosinophils% 3.9 % (0-5); Hematocrit 41.1 % (37-47); Hemoglobin 13.8 g/dL (12.0-15.0); Lymphocyte % 21.2 % (19-41); Mean Corp Hgb Conc 33.6 g/dL (32-36); Mean Corpuscular Hgb 34.2 pg (27.0-32.0); Mean Corpuscular Volume 101.7 fL (81-99); Mean Platelet Vol. 9.8 fl (6.2-12.0); Monocyte# 0.63 X10^3/uL; Monocyte% 11.1 % (0-10); NRBC Flagged by Analyzer 0 % (0-5); Neutrophil # 3.54 X10^3/uL (2.7-7.7); Neutrophil % 62.5 % (47-70); Platelet Count 317 K/mm3 (150-450); RBC Distribution Width CV 13.4 % (11.6-14.6); RBC Distribution Width SD 50.4 fl (35.1-43.9); Red Blood Count 4.04 M/mm3 (4.2-5.4); White Blood Count 5.7 K/mm3 (4.4-11.0)
[2022-01-10 10:00] LABS: Color, Urine Yellow (Yellow); Glucose, Dipstick Normal (Normal); Ketone-Dipstick Negative (Negative); Leukocyte Esterase-Dipstick 500 /ul (Negative); Nitrite-Dipstick Negative (Negative); Occult Blood-Urine Negative /ul (Negative); Protein-Dipstick Negative (Negative); Specific Gravity, Urine 1.015 (1.002-1.030); Urine Bilirubin Dipstick Negative (Negative); Urine Clarity Clear (Clear); Urine Urobilinogen Normal (Normal)
[2022-01-10 10:11] LABS: ALB/GLOB Ratio 1.1 RATIO (0.9-2.4); AST(SGOT) 14 U/L (15-37); Alanine Aminotransfer ALT/SGPT 17 U/L (13-56); Albumin, Serum 3.6 g/dL (3.2-5.0); Alkaline Phosphatase 72 U/L (45-117); Anion Gap 7 (5-15); BUN 11 mg/dL (7-18); BUN/Creat Ratio 20.1 RATIO (10-20); Calcium,Total 9.1 mg/dL (8.5-10.1); Chloride 106 mmol/L (98-107); Cholesterol 230 mg/dL (200); Creatinine, Serum 0.55 mg/dL (0.55-1.02); EST Glomerular Filtration Rate 117 mL/min (>60); Est Glom Filt Rate - Afr Amer 142 mL/min (>60); Globulin 3.2 g/dL (2.2-4.2); Glucose 104 mg/dL (74-106); High Density Lipoprotein 86 mg/dL; Potassium 4.3 mmol/L (3.5-5.1); Protein, Total 6.8 g/dL (6.4-8.2); Sodium Level 139 mmol/L (136-145); Triglycerides 96 mg/dL; Very Low Density Lipoprotein 19 mg/dL (5-40)
[2022-01-10 10:16] LABS: Vitamin D,25 Hydroxy 29.4 ng/mL
[2022-01-10 10:35] LABS: Bacteria 2+ /hpf (None Seen); Squamous Epithelial Cells - UA 0-5 SEEN /hpf (5-10)
[2022-01-10 10:36] LABS: Mucous, Urine 1+ /hpf (<or=2+); White Blood Cells 5-10 SEEN /hpf (0-5)
[2022-01-10 17:41] LABS: Hemoglobin A1c 5.7 % (3.8-5.6)
== END | disposition home or self-care (01) ==
LOC: MFPLAB 09:03
PROVIDERS: PCP Family Medicine; Referring Provider Family Medicine; Visit Provider Family Medicine
DX: I10 Essential (primary) hypertension (principal); R73.9 Hyperglycemia, unspecified; E78.5 Hyperlipidemia, unspecified; E55.9 Vitamin D deficiency, unspecified
CPT/HCPCS: 36415; 80053; 80061; 81001; 82306; 83036; 85025

== ENCOUNTER → 2022-09-08 | Outpatient (CLI) | payer MEDICARE, BC, SELFPAY ==
--- NOTE | 2022-09-08 12:55 | RAD_ITS ---
INDICATION: ongong cough since Apr; chronic smoker. EXAMINATION/TECHNIQUE: X-RAY - XR Chest 2 Views COMPARISON: Chest radiograph 02/28/2013. Findings: Frontal and lateral views of the chest. LUNG PARENCHYMA: No acute focal airspace disease or mass lesion. PLEURA: No pleural effusion. No pneumothorax. HEART/GREAT VESSELS: Cardiomediastinal silhouette is unremarkable. BONES: Osseous structures are unremarkable for age. RAD/Chest PA and Lateral IMPRESSION: Chest with no acute disease. Electronically Signed: Dedrick Eubanks MD at 3:16 EDT ,
== END | disposition home or self-care (01) ==
LOC: MTRAD 12:53
PROVIDERS: PCP Family Medicine; Referring Provider Nurse Practitioner Family; Visit Provider Nurse Practitioner Family
DX: R05.9 Cough, unspecified (principal)
CPT/HCPCS: 71046

== ENCOUNTER → 2022-10-03 | Outpatient (CLI) | payer MEDICARE, BC, SELFPAY ==
--- NOTE | 2022-10-03 13:51 | CT_ITS ---
HISTORY: COUGH,CP AND SOB greater than 45 year smoker. TECHNIQUE: Helically acquired images were obtained of the chest without contrast. A radiation dose optimization technique was used for this scan. 487 images. COMPARISON: XR 09/08/2022. CT 04/23/2021, 02/14/2020 FINDINGS: LARGE AIRWAYS: Patent. LUNGS: Mild emphysema. Calcified right upper lobe granuloma again seen. Minimal right middle lobe and lingular scarring. Chronic left fissural scar. No new suspicious nodule or acute alveolar consolidation. PLEURA: No pneumothorax or significant pleural effusion. HEART/PERICARDIUM: Heart within normal limits in size with coronary artery calcification. No pericardial effusion. VESSELS: Thoracic aorta nondilated. Mild atherosclerosis. MEDIASTINUM/ESTRELLITA: No pathologically enlarged adenopathy. Small calcified right mediastinal lymph nodes. BONES: Mild degenerative change. CT/Low Dose CT Lung Screening IMPRESSION: No significant interval change. Mild emphysema with scarring and chronic granulomatous disease. Lungs-RADS category 2: Continue annual screening with low dose CT. Electronically Signed: Anuradha Cedeno MD at 10:54 EDT ,
--- NOTE | 2022-10-06 07:40 | PFTCOMP_ITS ---
COMPLETE PULMONARY FUNCTION TEST INTERPRETATION Brief HPI: Patient is a 67 -year-old female, currently under the care of Chrissie Harrell, who presents to [facility] for complete pulmonary function tests secondary to diagnosis of tobacco abuse. Respiratory therapist reports good effort and reproducible results. Interpretation: Forced expiration spirometry shows no large airways obstructive ventilatory defect with an FEV1 of 108% predicted. There is no significant bronchodilator response by strict ATS criteria. Spirograms are of good quality and plateau normally. The respiratory flow volume loop shows a normal pattern. Lung volumes by body plethysmography show a normal total lung capacity at 4.08 L, 104% predicted. All other lung volumes are within normal limits. Diffusion capacity by carbon monoxide is normal at 88% predicted. The airway resistance is normal. No previous pulmonary function tests were available for review. Impression: These pulmonary function tests are within normal limits
== END | disposition home or self-care (01) ==
LOC: CT 12:55
PROVIDERS: PCP Family Medicine; Referring Provider Nurse Practitioner Family; Visit Provider Nurse Practitioner Family
DX: R06.02 Shortness of breath (principal); F17.210 Nicotine dependence, cigarettes, uncomplicated
CPT/HCPCS: 71271; 94060; 94726; 94729

== ENCOUNTER → 2022-10-28 | Outpatient (CLI) | payer MEDICARE, BC, SELFPAY ==
[2022-10-28 09:58] LABS: Red Blood Cells-Urine 0 SEEN /hpf (0-5)
[2022-10-28 12:18] LABS: Absolute Neutrophil Count 5.5 X10^3/uL (2.0-7.7); Basophil# 0.04 X10^3/uL; Basophil% 0.5 % (0-1); Eosinophil# 0.23 X10^3/uL; Hematocrit 44.7 % (37-47); Hemoglobin 14.7 g/dL (12.0-15.0); Lymphocyte % 14.3 % (19-41); Mean Corp Hgb Conc 32.9 g/dL (32-36); Mean Corpuscular Hgb 34.1 pg (27.0-32.0); Mean Corpuscular Volume 103.7 fL (81-99); Mean Platelet Vol. 9.9 fl (6.2-12.0); Monocyte# 0.81 X10^3/uL; Monocyte% 10.6 % (0-10); NRBC Flagged by Analyzer 0 % (0-5); Neutrophil # 5.45 X10^3/uL (2.7-7.7); Neutrophil % 71.1 % (47-70); Platelet Count 335 K/mm3 (150-450); RBC Distribution Width CV 13.7 % (11.6-14.6); RBC Distribution Width SD 52.6 fl (35.1-43.9); Red Blood Count 4.31 M/mm3 (4.2-5.4); White Blood Count 7.7 K/mm3 (4.4-11.0)
[2022-10-28 12:19] LABS: Color, Urine Yellow (Yellow); Glucose, Dipstick Normal (Normal); Ketone-Dipstick 5 mg/dl (Negative); Leukocyte Esterase-Dipstick 25 /ul (Negative); Nitrite-Dipstick Negative (Negative); Occult Blood-Urine Negative /ul (Negative); Protein-Dipstick 15 mg/dl (Negative); Specific Gravity, Urine 1.015 (1.002-1.030); Urine Bilirubin Dipstick Negative (Negative); Urine Clarity Sl. Cloudy (Clear); Urine Urobilinogen 1 mg/dl (Normal)
[2022-10-28 12:39] LABS: Hemoglobin A1c 5.6 % (3.8-5.6)
[2022-10-28 12:41] LABS: Vitamin D,25 Hydroxy 85.2 ng/mL
[2022-10-28 12:47] LABS: Bacteria 1+ /hpf (None Seen); Mucous, Urine 1+ /hpf (<or=2+); Squamous Epithelial Cells - UA 5-10 SEEN /hpf (5-10); White Blood Cells 0-5 SEEN /hpf (0-5)
[2022-10-28 13:00] LABS: ALB/GLOB Ratio 1.1 RATIO (0.9-2.4); AST(SGOT) 13 U/L (15-37); Alanine Aminotransfer ALT/SGPT 18 U/L (13-56); Alkaline Phosphatase 76 U/L (45-117); Anion Gap 8 (5-15); BUN 9 mg/dL (7-18); BUN/Creat Ratio 15.5 RATIO (10-20); Calcium,Total 9.5 mg/dL (8.5-10.1); Chloride 105 mmol/L (98-107); Cholesterol 273 mg/dL (200); Creatinine, Serum 0.58 mg/dL (0.55-1.02); EST Glomerular Filtration Rate 110 mL/min (>60); Est Glom Filt Rate - Afr Amer 133 mL/min (>60); Globulin 3.6 g/dL (2.2-4.2); Glucose 82 mg/dL (74-106); High Density Lipoprotein 85 mg/dL; Potassium 3.9 mmol/L (3.5-5.1); Protein, Total 7.6 g/dL (6.4-8.2); Sodium Level 138 mmol/L (136-145); Thyroid Stim Hormone (TSH) 1.23 uIU/mL (0.358-3.74); Triglycerides 182 mg/dL; Very Low Density Lipoprotein 36 mg/dL (5-40)
== END | disposition home or self-care (01) ==
LOC: MFPLAB 09:53
PROVIDERS: PCP Family Medicine; Visit Provider Family Medicine
DX: I10 Essential (primary) hypertension (principal); E78.5 Hyperlipidemia, unspecified; R73.02 Impaired glucose tolerance (oral); M85.80 Other specified disorders of bone density and structure, unspecified site; F17.210 Nicotine dependence, cigarettes, uncomplicated
CPT/HCPCS: 36415; 80053; 80061; 81001; 82306; 83036; 84443; 85025

== ENCOUNTER → 2022-12-26 | Outpatient (CLI) | payer MEDICARE, BC, SELFPAY ==
[2022-12-26 11:38] LABS: Bacteria 0 SEEN /hpf (None Seen); Mucous, Urine 0 SEEN /hpf (<or=2+); White Blood Cells 0 SEEN /hpf (0-5)
[2022-12-26 15:37] LABS: Absolute Lymphocyte Count 1.44 X10^3/uL (0.83-4.51); Absolute Neutrophil Count 4.4 X10^3/uL (2.0-7.7); Basophil# 0.05 X10^3/uL; Basophil% 0.7 % (0-1); Eosinophil# 0.18 X10^3/uL; Eosinophils% 2.6 % (0-5); Hemoglobin 13.7 g/dL (12.0-15.0); Lymphocyte # 1.44 X10^3/ul (0.83-4.51); Lymphocyte % 21.2 % (19-41); Mean Corp Hgb Conc 32.6 g/dL (32-36); Mean Corpuscular Hgb 33.7 pg (27.0-32.0); Mean Corpuscular Volume 103.4 fL (81-99); Monocyte# 0.75 X10^3/uL; NRBC Flagged by Analyzer 0 % (0-5); Neutrophil # 4.36 X10^3/uL (2.7-7.7); Neutrophil % 64.2 % (47-70); Platelet Count 371 K/mm3 (150-450); RBC Distribution Width CV 13.5 % (11.6-14.6); RBC Distribution Width SD 51.6 fl (35.1-43.9); Red Blood Count 4.06 M/mm3 (4.2-5.4); White Blood Count 6.8 K/mm3 (4.4-11.0)
[2022-12-26 16:02] LABS: AST(SGOT) 19 U/L (15-37); Alanine Aminotransfer ALT/SGPT 22 U/L (13-56); Albumin, Serum 3.8 g/dL (3.2-5.0); Alkaline Phosphatase 66 U/L (45-117); Anion Gap 6 (5-15); BUN 17 mg/dL (7-18); BUN/Creat Ratio 28.3 RATIO (10-20); Calcium,Total 9.6 mg/dL (8.5-10.1); Chloride 103 mmol/L (98-107); Cholesterol 215 mg/dL (200); Color, Urine Yellow (Yellow); EST Glomerular Filtration Rate 105 mL/min (>60); Est Glom Filt Rate - Afr Amer 127 mL/min (>60); Globulin 3.7 g/dL (2.2-4.2); Glucose 123 mg/dL (74-106); Glucose, Dipstick Normal (Normal); High Density Lipoprotein 89 mg/dL; Ketone-Dipstick Negative (Negative); Leukocyte Esterase-Dipstick 25 /ul (Negative); Nitrite-Dipstick Negative (Negative); Occult Blood-Urine 10 /ul (Negative); Potassium 4.1 mmol/L (3.5-5.1); Protein, Total 7.5 g/dL (6.4-8.2); Protein-Dipstick 15 mg/dl (Negative); Sodium Level 137 mmol/L (136-145); Specific Gravity, Urine 1.025 (1.002-1.030); Triglycerides 67 mg/dL; Urine Bilirubin Dipstick Negative (Negative); Urine Clarity Clear (Clear); Urine Urobilinogen Normal (Normal); Very Low Density Lipoprotein 13 mg/dL (5-40)
[2022-12-26 16:17] LABS: Red Blood Cells-Urine 0-5 SEEN /hpf (0-5); Squamous Epithelial Cells - UA 0-5 SEEN /hpf (5-10)
[2022-12-26 18:54] LABS: Hemoglobin A1c 5.5 % (3.8-5.6)
== END | disposition home or self-care (01) ==
LOC: MFPLAB 11:18
PROVIDERS: PCP Family Medicine; Visit Provider Family Medicine
DX: E78.5 Hyperlipidemia, unspecified (principal); R73.02 Impaired glucose tolerance (oral); E55.9 Vitamin D deficiency, unspecified; F17.210 Nicotine dependence, cigarettes, uncomplicated
CPT/HCPCS: 36415; 80053; 80061; 81001; 82306; 83036; 85025

== ENCOUNTER → 2023-12-21 | Outpatient (CLI) | payer MEDICARE, BC, SELFPAY ==
--- NOTE | 2023-12-21 14:23 | VDLE_ITS ---
Reason For Study: LLE Pain RIGHT LEFT CFV is compressible, spontaneous, phasic, Lt CFV - FV - Deep Fem V - Pop V - T/P Trunk competent and demonstrates normal - Gastroc V - Soleus V - PTV - Migdalia V appear augmentation. DILATED and NONCOMPRESSIBLE. Procedure This is a venous duplex using B-mode, color Lt EIV appears to have PULSATILE flow in flow and spectral Doppler. pulsed wave and color doppler. Exam performed in department. The exam was diagnostic. Continuous flow noted in CFV A preliminary report was called and/or faxed to [facility]. 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 Continuous flow noted in POP V SSV is DILATED and NONCOMPRESSIBLE throughout. GSV is compressible at distal calf and appears to have been ablated from mid calf to prox thigh. VL/Venous Duplex US, Unilateral Interpretation Summary Acute deep vein thrombosis is noted in the left common femoral vein. Acute deep vein thrombosis is noted in the left femoral vein. Acute deep vein thrombosis is noted in the deep femoral vein. Acute deep vein thrombosis is noted in the left popliteal vein. Acute deep vein throm bosis is noted in the left tibio-peroneal trunk. Acute deep vein thrombosis is noted in the left migdalia mable vein. Acute deep vein thrombosis is noted in the left posterior tibial vein. Acute deep vein thr ombosis is noted in the left soleus vein. Acute deep vein thrombosis is noted in the left gastrocne mius vein. A duplicate left femoral vein is noted to be patent and compressible from the pro ximal thigh to the knee. The left external iliac vein appears patent. Acute thrombus in the left c ommon femoral vein and popliteal vein are only partially occlusive. The left great saphenous vein is patent and compressible in the distal calf, but appears to have been ablated more proximal ly. Acute superficial thrombophlebitis is noted in the left small saphenous vein. The right common fe moral vein is patent and compressible. Ordering Physician: Danilo Mancera Referring Physician: Karthikeyan Campos Performed By: Denys Villalpando RVT
[2023-12-21 16:12] LABS: Mucous, Urine 0 SEEN /hpf (<or=2+); Red Blood Cells-Urine 0 SEEN /hpf (0-5)
[2023-12-21 16:29] LABS: Absolute Lymphocyte Count 0.95 X10^3/uL (0.83-4.51); Absolute Neutrophil Count 7.2 X10^3/uL (2.0-7.7); Basophil# 0.04 X10^3/uL; Basophil% 0.4 % (0-1); Hemoglobin 14.6 g/dL (12.0-15.0); Lymphocyte # 0.95 X10^3/ul (0.83-4.51); Lymphocyte % 9.8 % (19-41); Mean Corp Hgb Conc 32.4 g/dL (32-36); Mean Corpuscular Hgb 32.4 pg (27.0-32.0); Mean Corpuscular Volume 99.8 fL (81-99); Mean Platelet Vol. 9.9 fl (6.2-12.0); Monocyte# 1.31 X10^3/uL; Monocyte% 13.6 % (0-10); NRBC Flagged by Analyzer 0 % (0-5); Neutrophil # 7.21 X10^3/uL (2.7-7.7); Neutrophil % 74.7 % (47-70); Platelet Count 283 K/mm3 (150-450); RBC Distribution Width CV 12.9 % (11.6-14.6); RBC Distribution Width SD 47.9 fl (35.1-43.9); Red Blood Count 4.51 M/mm3 (4.2-5.4); White Blood Count 9.7 K/mm3 (4.4-11.0)
[2023-12-21 16:55] LABS: Color, Urine Yellow (Yellow); Glucose, Dipstick Normal (Normal); Ketone-Dipstick 5 mg/dl (Negative); Leukocyte Esterase-Dipstick 25 /ul (Negative); Nitrite-Dipstick Negative (Negative); Occult Blood-Urine Negative /ul (Negative); Protein-Dipstick 30 mg/dl (Negative); Specific Gravity, Urine 1.015 (1.002-1.030); Urine Bilirubin Dipstick Negative (Negative); Urine Clarity Clear (Clear); Urine Urobilinogen 1 mg/dl (Normal)
[2023-12-21 17:03] LABS: AST(SGOT) 12 U/L (15-37); Alanine Aminotransfer ALT/SGPT 12 U/L (13-56); Albumin, Serum 3.8 g/dL (3.2-5.0); Alkaline Phosphatase 128 U/L (45-117); Anion Gap 8 (5-15); BUN 13 mg/dL (7-18); BUN/Creat Ratio 20.2 RATIO (10-20); Calcium,Total 10.3 mg/dL (8.5-10.1); Chloride 103 mmol/L (98-107); Cholesterol 225 mg/dL (200); Creatinine, Serum 0.64 mg/dL (0.55-1.02); EST Glomerular Filtration Rate 97 mL/min (>60); Est Glom Filt Rate - Afr Amer 117 mL/min (>60); Globulin 3.9 g/dL (2.2-4.2); Glucose 107 mg/dL (74-106); High Density Lipoprotein 71 mg/dL; Potassium 4.2 mmol/L (3.5-5.1); Protein, Total 7.7 g/dL (6.4-8.2); Sodium Level 139 mmol/L (136-145); Triglycerides 109 mg/dL; Very Low Density Lipoprotein 22 mg/dL (5-40)
[2023-12-21 17:04] LABS: Vitamin D,25 Hydroxy 33.1 ng/mL
[2023-12-21 17:07] LABS: Hemoglobin A1c 5.6 % (3.8-5.6)
[2023-12-21 17:14] LABS: Bacteria 1+ /hpf (None Seen); Squamous Epithelial Cells - UA 0-5 SEEN /hpf (5-10); White Blood Cells 0-5 SEEN /hpf (0-5)
== END | disposition home or self-care (01) ==
LOC: CVS 13:54 → LAB 15:29
PROVIDERS: PCP Family Medicine; Referring Provider Family Medicine
DX: M79.605 Pain in left leg (principal); J32.9 Chronic sinusitis, unspecified; Z86.2 Personal history of diseases of the blood and blood-forming organs and certain disorders involving the immune mechanism; I10 Essential (primary) hypertension; M85.80 Other specified disorders of bone density and structure, unspecified site; R73.02 Impaired glucose tolerance (oral)
CPT/HCPCS: 36415; 80053; 80061; 81001; 82306; 83036; 85025; 93971

== ENCOUNTER → 2024-01-06 | Outpatient (CLI) | payer MEDICARE, BC, SELFPAY | END | disposition home or self-care (01) | LOC: MTRAD 09:11 | PROVIDERS: PCP Family Medicine; Referring Provider Family Medicine; Visit Provider Family Medicine | DX: J20.9 Acute bronchitis, unspecified (principal) | CPT/HCPCS: 71046 ==

== ENCOUNTER → 2024-05-27 | Outpatient (CLI) | payer MEDICARE, BC, SELFPAY ==
[2024-05-27 11:45] LABS: Mucous, Urine 0 SEEN /hpf (<or=2+)
[2024-05-27 15:22] LABS: Color, Urine Yellow (Yellow); Glucose, Dipstick Normal (Normal); Ketone-Dipstick Negative (Negative); Leukocyte Esterase-Dipstick Negative /ul (Negative); Nitrite-Dipstick Negative (Negative); Occult Blood-Urine Negative /ul (Negative); Protein-Dipstick Negative (Negative); Urine Bilirubin Dipstick Negative (Negative); Urine Clarity Clear (Clear); Urine Urobilinogen Normal (Normal)
[2024-05-27 15:25] LABS: Absolute Lymphocyte Count 1.03 X10^3/uL (0.83-4.51); Absolute Neutrophil Count 3.6 X10^3/uL (2.0-7.7); Basophil# 0.06 X10^3/uL; Basophil% 1.1 % (0-1); Eosinophil# 0.09 X10^3/uL; Eosinophils% 1.7 % (0-5); Hematocrit 42.2 % (37-47); Hemoglobin 14.5 g/dL (12.0-15.0); Lymphocyte # 1.03 X10^3/ul (0.83-4.51); Lymphocyte % 19.7 % (19-41); Mean Corp Hgb Conc 34.4 g/dL (32-36); Mean Corpuscular Hgb 33.4 pg (27.0-32.0); Mean Corpuscular Volume 97.2 fL (81-99); Monocyte# 0.44 X10^3/uL; Monocyte% 8.4 % (0-10); NRBC Flagged by Analyzer 0 % (0-5); Neutrophil # 3.61 X10^3/uL (2.7-7.7); Neutrophil % 68.9 % (47-70); Platelet Count 358 K/mm3 (150-450); RBC Distribution Width CV 14.1 % (11.6-14.6); RBC Distribution Width SD 50.3 fl (35.1-43.9); Red Blood Count 4.34 M/mm3 (4.2-5.4); White Blood Count 5.2 K/mm3 (4.4-11.0)
[2024-05-27 15:50] LABS: Bacteria RARE /hpf (None Seen); Red Blood Cells-Urine 0 SEEN /hpf (0-5); Squamous Epithelial Cells - UA 0-5 SEEN /hpf (5-10); White Blood Cells 0-5 SEEN /hpf (0-5)
[2024-05-27 18:24] LABS: Hemoglobin A1c 5.6 % (<=5.6)
[2024-05-27 19:57] LABS: ALB/GLOB Ratio 1.8 RATIO (0.9-2.4); AST(SGOT) 21 U/L (<=31); Alanine Aminotransfer ALT/SGPT 9 U/L (<=34); Albumin, Serum 4.6 g/dL (3.4-4.8); Alkaline Phosphatase 78 U/L (35-104); Anion Gap 14 (5-15); BUN 14 mg/dL (4-19); BUN/Creat Ratio 21.2 RATIO (10-20); Calcium,Total 9.9 mg/dL (7.6-11.0); Carbon Dioxide 22.5 mmol/L (21.0-32.0); Chloride 103 mmol/L (98-108); Cholesterol 279 mg/dL (<=200); Creatinine, Serum 0.64 mg/dL (0.70-1.20); EST Glomerular Filtration Rate 94 (>60); Globulin 2.6 g/dL (2.2-4.2); Glucose 111 mg/dL (70-99); High Density Lipoprotein 93 mg/dL; Low Density Lipoprotein Calc. 174 mg/dL; Potassium 4.4 mmol/L (3.3-5.1); Protein, Total 7.2 g/dL (5.9-8.4); Sodium Level 139 mmol/L (133-145); Total Bilirubin 0.65 mg/dL (0.00-1.30); Triglycerides 62 mg/dL; Very Low Density Lipoprotein 12 mg/dL (5-40)
[2024-05-27 21:06] LABS: Vitamin D,25 Hydroxy 33.9 ng/mL (30-100)
== END | disposition home or self-care (01) ==
LOC: MFPLAB 11:37
PROVIDERS: PCP Family Medicine; Referring Provider Family Medicine; Visit Provider Family Medicine
DX: I10 Essential (primary) hypertension (principal); M85.80 Other specified disorders of bone density and structure, unspecified site; R73.02 Impaired glucose tolerance (oral)
CPT/HCPCS: 36415; 80053; 80061; 81001; 82306; 83036; 85025

== ENCOUNTER → 2024-09-06 | Outpatient (CLI) | payer MEDICARE, BC, SELFPAY ==
--- NOTE | 2024-09-06 09:46 | BI_ITS ---
EXAM: SCRN MAMM (CAD)W/ANDRES BILAT DATE: 09/06/2024 CLINICAL HISTORY: F, Age 69 y/o , SCREENING Aunts with breast cancer. Prior right stereotactic breast biopsy. TECHNIQUE: SCRN MAMM (CAD)W/ANDRES BILAT COMPARISON: Prior exam(s) dated April 02, 2021.. FINDINGS: TISSUE DENSITY: The breasts are extremely dense, which lowers the sensitivity of mammography. Bilateral Breast Mammographic Findings: No significant masses, calcifications or other abnormalities are identified. A tissue clip marker is once again seen in the slightly upper medial aspect of the right breast. No suspicious masses, areas of developing architectural distortion, or suspicious calcifications. There has been no significant interval change. BI/SCRN MAMM (CAD)W/ANDRES BILAT IMPRESSION: Stable examination. OVERALL FINAL ASSESSMENT BI-RADS 2: BENIGN RECOMMEND ANNUAL MAMMOGRAPHIC SCREENING. RECOMMENDATION: Routine annual follow-up in 1 Year A letter with findings and recommendations will be mailed to the patient. Reading Location: [place] [id number]
== END | disposition home or self-care (01) ==
LOC: OPBI 09:46
PROVIDERS: PCP Family Medicine; Referring Provider Family Medicine; Visit Provider Family Medicine
DX: Z12.31 Encounter for screening mammogram for malignant neoplasm of breast (principal)
CPT/HCPCS: 77063; 77067

== ENCOUNTER → 2025-03-01 | Outpatient (CLI) | payer MEDICARE, BC, SELFPAY ==
[2025-03-01 14:19] LABS: Red Blood Cells-Urine 0 SEEN /hpf (0-5)
--- OUTSIDE RECORDS SUMMARY | 2025-03-01 14:36 | XMS RPT_ITS | CCD ---
Author Organization [facility] Care Team Providers Care Search Lead Name Role Phone Dr. Karthikeyan Flores Primary Care Provider SHILPI Harrell Referring Provider SHILPI Harrell Other Provider [phone] Guillermo Hameed Attending Provider [phone] Beth ELLER, Dr. Karthikeyan Bland Primary Care Provider Beth ELLER, Dr. Karthikeyan Bland Attending Provider Beth ELLER, Dr. Karthikeyan Bland Referring Provider Radha Funes Attending Provider Unavailable Dr. Zachery Snider MD Attending Provider Agatha ELLER, Dr. Bingham Referring Provider Dr. Zachery Snider MD Referring Provider Brett Gar MD Unavailable Unavailable Karthikeyan Flores Primary Care Unavailable Karthikeyan Flores Attending Unavailable Karthikeyan Flores Referring Unavailable Karthikeyan Flores Primary Care Unavailable Radha Funes Attending Unavailable Karthikeyan Flores Referring Unavailable Zachery Snider Attending Unavailable Karthikeyan Flores Primary Care Unavailable Zachery Snider Attending Unavailable Karthikeyan Flores Primary Care Unavailable Karthikeyan Flores Referring Unavailable Zachery Snider Attending Unavailable Karthikeyan Flores Primary Care Unavailable Karthikeyan Flores Referring Unavailable Karthikeyan Flores Primary Care Unavailable Slyorrow Danilo HOLLEY Attending Unavailable Masood Lantigua Referring Unavailable Karthikeyan Flores Referring Unavailable Karthikeyan Flores Primary Care Unavailable Karthikeyan Flores Attending Unavailable Karthikeyan Flores Referring Unavailable Karthikeyan Flores Primary Care Unavailable Karthikeyan Flores Attending Unavailable Zachery Snider Attending Unavailable Zachery Snider Referring Unavailable Karthikeyan Flores Primary Care Unavailable Brett Gar MD Unavailable Unavailable Brett Gar Attending Unavailable Brett Gar Referring Unavailable Brett Gar Attending Unavailable Brett Gar Referring Unavailable Brett Gar Attending Unavailable Brett Gar Referring Unavailable Brett Gar MD Unavailable Unavailable Allergies Allergy Classification Reported Allergen(s) Allergy Type Date of Onset Reaction(s) Facility (13 sources) nickel; Translations: [nickel] Drug Allergy 5 Rash, blistering [facility] (5 sources) buPROPion Drug Allergy 5 anxiety [facility] (5 sources) Lisinopril Drug Allergy 5 cough [facility] (5 sources) PARoxetine Drug Allergy 5 weight gain [facility] (5 sources) venlafaxine Drug Allergy 5 GI upset [facility] (9 sources) perfume; Translations: [perfume] Allergy to substance 2 headache, nausea and migraines [facility] (3 sources) Timolol; Translations: [TIMOLOL MALEATE] Drug Allergy 3 Unknown [facility] (1 source) buPROPion Drug Allergy 5 [facility] Repository (1 source) Lisinopril Drug Allergy 5 [facility] (1 source) nickel Drug Allergy 5 [facility] (1 source) PARoxetine Drug Allergy 5 [facility] (1 source) venlafaxine Drug Allergy 5 [facility] Repository Medications Current Medications Medication Drug Class(es) Dates Sig (Normalized) Sig (Original) apixaban 5 mg oral tablet (5 sources) Factor Xa Inhibitor Start: 05-30-2024 take 1 tablet by mouth twice daily Apixaban (Eliquis) 5 mg tablet Active 5 mg PO TWICE A DAY May 30, 2024 12:00am blood pressure med ?? BUCCAL ADH. PATCH (3 sources) take 1 tablet by mouth once daily blood pressure med ?? BUCCAL ADH. PATCH take one tablet by mouth once daily - Active dorzolamide 20 mg/ml ophthalmic solution (3 sources) Carbonic Anhydrase Inhibitor Start: 09-28-2024 take 1 drop(s) into the eye(s) twice daily dorzolamide 2 % eye drops instill 1 drop by ophthalmic route 2 times every day into right eye 1 drop - Active Start: 12-24-2022 End: 08-31-2024 take 1 drop(s) into the eye(s) three times daily dorzolamide 2 % eye drops instill 1 drop by ophthalmic route 3 times every day into right eye 1 drop - No Longer Active 5 ml bottle Comment on above: 5 ml bottle Multivitamin Women 50 Plus 8 mg iron-400 mcg-300 mcg tablet (3 sources) take 1 tablet by mouth once daily Multivitamin Women 50 Plus 8 mg iron-400 mcg-300 mcg tablet take 1 tablet by oral route every day 1 tablet - Active rosuvastatin calcium 10 mg oral tablet (4 sources) HMG-CoA Reductase Inhibitor Start: 5 take 1 tablet by mouth once Rosuvastatin 10 mg tablet Active 10 mg PO every Thursday, Thursday, and Saturday August 17, 2024 12:00am sertraline 100 mg oral tablet (5 sources) Serotonin Reuptake Inhibitor Start: 5 Sertraline 100 mg tablet Active 50 mg PO daily May 30, 2024 12:00am valsartan 160 mg oral tablet (5 sources) Angiotensin 2 Receptor Irish Start: 5 take 1 tablet by mouth once daily Valsartan 160 mg tablet Active 160 mg PO daily May 30, 2024 12:00am Completed/Discontinued Medications Medication Drug Class(es) Dates Sig (Normalized) Sig (Original) ascorbic acid 500 mg oral tablet (1 source) Vitamin C End: 08-31-2024 take 1 tablet by mouth once daily Vitamin C 500 mg tablet take 1 tablet by oral route every day 1 tablet - No Longer Active biotin 1 mg oral capsule (10 sources) Start: 08-29-2014 End: 05-30-2024 take 1 capsule by mouth once daily Biotin 1 MG capsule Discontinued 1 mg PO DAILY August 29, 2014 12:00am May 30, 2024 4:48pm calcium carbonate 1500 mg oral tablet (10 sources) Start: 08-29-2014 End: 05-30-2024 take 1 tablet by mouth once daily Calcium Carbonate 600 MG tablet Discontinued 600 mg PO DAILY August 29, 2014 12:00am May 30, 2024 4:48pm citalopram 10 mg oral tablet (10 sources) Serotonin Reuptake Inhibitor Start: 08-29-2014 End: 05-30-2024 take 1 tablet by mouth once daily Citalopram 10 MG tablet Discontinued 10 mg PO DAILY August 29, 2014 12:00am May 30, 2024 4:48pm fluticasone propionate 0.05 mg/actuat metered dose nasal spray (5 sources) Corticosteroid Start: 05-30-2024 End: 08-17-2024 take 50 ug nasal route once daily Fluticasone Propionate (Flonase Allergy Relief) 50 mcg/actuation spray,suspension Discontinued 1 NMA INTRANASAL daily May 30, 2024 12:00am August 17, 2024 2:54pm administer into each nostril metroNIDAZOLE 7.5 mg/ml topical cream (5 sources) Nitroimidazole Antimicrobial Start: 05-30-2024 End: 08-17-2024 Metronidazole 0.75 % cream Discontinued 1 NMA TOPICAL daily May 30, 2024 12:00am August 17, 2024 2:54pm polyethylene glycol 400 4 mg/ml / propylene glycol 3 mg/ml ophthalmic solution (1 source) End: 08-31-2024 take 1 drop(s) into the eye(s) every twelve hours Systane Ultra 0.4 %-0.3 % eye drops instill 1 drop by ophthalmic route 2 times every day 1 drop - No Longer Active ubidecarenone 100 mg oral capsule (10 sources) Start: 08-29-2014 End: 08-17-2024 Coenzyme Q10 (Co Q-10) 100 MG capsule Discontinued 100 mg PO DAILY August 29, 2014 12:00am August 17, 2024 2:54pm vitamin a 2.4 mg oral capsule (10 sources) Vitamin A Start: 08-29-2014 End: 05-30-2024 Vitamin A 8,000 UNIT capsule Discontinued 8000 U PO DAILY August 29, 2014 12:00am May 30, 2024 4:48pm vitamin e 100 unt oral capsule (5 sources) Start: 05-30-2024 End: 08-17-2024 take 1 capsule by mouth once daily Vitamin E (Dl, Acetate) 45 mg (100 unit) capsule Discontinued 45 mg PO daily May 30, 2024 12:00am August 17, 2024 2:54pm vitamin k1 5 mg oral tablet (5 sources) Warfarin Reversal Agent, Vitamin K Start: 05-30-2024 End: 08-17-2024 take 1 tablet by mouth once daily Phytonadione (Vitamin K1) 5 mg tablet Discontinued 5 mg PO daily May 30, 2024 12:00am August 17, 2024 2:54pm zinc acetate 50 mg oral capsule (5 sources) Start: 05-30-2024 End: 08-17-2024 take 1 capsule by mouth once daily Zinc Acetate 50 mg (zinc) capsule Discontinued 50 mg PO daily May 30, 2024 12:00am August 17, 2024 2:54pm Problems Active Problems Problem Classification Problem Date Documented Da te Episodic/Chronic Blindness and vision defects (9 sources) Other visual disturbances Episodic Cataract (20 sources) Presence of intraocular lens; Translations: [Presence of pseudophakia] Onset: 12-02-2024 Chronic Coagulation and hemorrhagic disorders (2 sources) Heterozygous Factor V Leiden mutation; Translations: [Activated protein C resistance] 09-22-2024 Chronic Comment on above: Since she has had mu ltiple episode of clots, she can take prophylactic dose for the rest of her life.Had a long discussion about prophylactic use of anticoagulants when one has multiple episode of clots. Complications of surgical procedures or medical care (20 sources) Cystoid macular edema following cataract surgery, bilateral; Translations: [Cystoid macular edema following cataract surgery, bilateral] Onset: 08-31-2024 Episodic Essential hypertension (20 sources) Essential (primary) hypertension; Translations: [Essential (primary) hypertension] Onset: 06-02-2024 Chronic Inflammation; infection of eye (except that caused by tuberculosis or sexually transmitteddisease) (7 sources) Posterior cyclitis, right eye; Translations: [Posterior cyclitis, right eye] Onset: 08-31-2024 Chronic Other eye disorders (20 sources) Vitreous degeneration, bilateral; Translations: [Vitreous degeneration, bilateral] Onset: 10-03-2025 Chronic Other screening for suspected conditions (not mental disorders or infectious disease) (1 source) Encounter for screening mammogram for malignant neoplasm of breast; Translations: [Encounter for screening mammogram for malignant neoplasm of breast] Onset: 09-13-2024 Episodic Phlebitis; thrombophlebitis and thromboembolism (14 sources) Deep venous thrombosis of lower extremity; Translations: [Acute embolism and thrombosis of unspecified femoral vein] Onset: 08-25-2024 08-17-2024 Episodic Comment on above: L femoral DVT after a car door slammed on her L leg in December 2023.She is on Eliquis, will like to come off. L femoral DVT after a car door slammed on her L leg in December 2023, looks like provoked DVT.Has had multiple clots in the left leg before this episode. Has also had L vein procedure about 15yrs ago.She is on Eliquis, will like to come off. D-dimers are normal so she can go down to prophylactic dose of 2.5mg bid. Retinal detachments; defects; vascular occlusion; and retinopathy (20 sources) Puckering of macula, right eye; Translations: [Cystoid macular edema] Onset: 03-28-2022 Resolved: 12-24-2022 Chronic Unclassified (3 sources) Right posterior cyclitis; Translations: [Right posterior cyclitis] Past or Other Problems Problem Classification Problem Date Documented Da te Episodic/Chronic Acute bronchitis (1 source) Acute bronchitis, unspecified; Translations: [Acute bronchitis, unspecified] Onset: 02-03-2024 Episodic Cataract (15 sources) Cataract Onset: 11-01-2021 Resolved: 08-08-2022 Other connective tissue disease (1 source) Pain in left leg; Translations: [Pain in left leg] Onset: 01-15-2024 Episodic Unclassified (6 sources) CME (chief complaint) Onset: 10-31-2022 Resolved: 08-31-2024 Unclassified (6 sources) CME OU (chief complaint) Onset: 10-17-2022 Resolved: 03-18-2023 Unclassified (3 sources) Cystoid macular edema BI (chief complaint) Onset: 01-21-2023 Unclassified (3 sources) cystoid macula edema (chief complaint) haloing (chief complaint) Onset: 10-02-2021 Results Test Name Value Interpretation Reference Range Facility Thrombotic Risk Profileon APCR Normal [facility] Comment on above: Result Comment: TEST RESULTS LIMITS Thrombotic Risk Profile I Homocyst(e)ine 16.4 umol/L 0.0-19.2 Plasminogen 140 % 70-150 Antithrombin Activity 102 % 75-135 Direct Xa inhibitor anticoagulants such as rivaroxaban, apixaban and edoxaban will lead to spuriously elevated antithrombin activity levels possibly masking a deficiency. Protein C-Functional 121 % 73-180 Protein S, Free 142 High % 61-136 Act.Prt.C Resist. 1.8 Low ratio 2.2-3.5 A low activated protein C resistance (APCR) is a risk factor for venous thrombosis and is a screen for the Factor V Leiden mutation. Consider molecular analysis for this mutation. Other causes for abnormal APCR are uncommon and include other rare mutations in the Factor V molecule, and certain drug therapies, including thalidomide therapy, presence of a lupus anticoagulant, increased Factor VIII levels, and autoantibodies against activated protein C. Factor V Leiden Abnormal Result: c.1601G>A (p.[id number]) - Detected, Heterozygous This result is associated with a 6- to 8-fold increased risk for venous thromboembolism. See Additional Clinical Information and Comments. Comment Additional Clinical Information: Venous thromboembolism is a multifactorial disease influenced by genetic, environmental, and circumstantial risk factors. The c.1601G>A (p. [id number]) variant in the F5 gene, commonly referred to as Factor V Leiden, is a genetic risk factor for venous thromboembolism. Heterozygous carriers of this variant have a 6- to 8-fold increased risk for venous thromboembolism. Individuals homozygous for this variant (ie, with a copy of the variant on each chromosome) have an approximately 80-fold increased risk for venous thromboembolism. Individuals who carry both a c.*97G>A variant in the F2 gene and Factor V Leiden have an approximately 20-fold increased risk for venous thromboembolism. Risks are likely to be even higher in more complex genotype combinations involving the F2 c.*97G>A variant and Factor V Leiden (PMID: 91798598). Additional risk factors include but are not limited to: deficiency of protein C, protein S, or antithrombin III, age, male sex, personal or family history of deep vein thromboembolism, smoking, surgery, prolonged immobilization, malignant neoplasm, tamoxifen treatment, raloxifene treatment, oral contraceptive use, hormone replacement therapy, and . Management of thrombotic risk and thrombotic events should follow established guidelines and fit the clinical circumstance. This result cannot predict the occurrence or recurrence of a thrombotic event. Comment: Genetic counseling is recommended to discuss the potential clinical implications of positive results, as well as recommendations for testing family members. Genetic Coordinators are available for health care providers to discuss results at [phone]). Test Details: Variant Analyzed: c.1601G>A (p. Zwu858Bto), referred to as Factor V Leiden Methods/Limitations: DNA analysis of the F5 gene (NM_000130.5) was performed by PCR amplification followed by electrophoresis. The diagnostic sensitivity is >99%. Results must be combined with clinical information for the most accurate interpretation. Molecular-based testing is highly accurate, but as in any laboratory test, diagnostic errors may occur. False positive or false negative results may occur for reasons that include genetic variants, blood transfusions, bone marrow transplantation, somatic or tissue-specific mosaicism, mislabeled samples, or erroneous representation of family relationships. This test was developed and its performance characteristics determined by [employer]. It has not been cleared or approved by the Food and Drug Administration. References: Reilly S, Yumiko CADENA, Julio R, Ender WW, Bernard JH; [employer] Professional Practice and Guidelines Committee. Addendum: [employer] consensus statement on factor V Leiden mutation testing. [employer] [employer]. 2020May 04. doi: 10.1038/j70199-774- 88185-h. PMID: 27441246. Rosa MONTALVO. Factor V Leiden Thrombophilia. 1998July 13 (Updated 2017Mar 05). In: Talib MP, Bay HH, Dora RA, et al., editors. [place](R) (Internet). [place] ([place]): [facility], [place]; 0623-9470. Available from: https://www.ncbi.nlm.nih.gov/books/KSZ0491/ Guicho Weber, Yumiko CADENA, Frederick X, Christ B, Alma Rosa EB, Kate P, Violetta CS; [employer] Laboratory Senior Project Accountant Committee. Venous thromboembolism laboratory testing (factor V Leiden and factor II c. *97G>A), 2018 update: a technical standard of the [employer] ([employer]). [employer]. 2018 Jan;20(12): 0577-5359. doi: 10.1038/t33092-673-2821-k. Epub 2017Dec 04. PMID: 90747025. Reviewed by: Technical Component performed at [facility] RTP Professional Component performed by: Seda Medrano, PhD, [facility] WSTGD6, L (more content not included)... Performed By: #### L [phone] #### [facility] [address] [place], [address] Oncology Visit Reporton 08-31 Oncology Visit Report [facility] [address] [place] [address] OFFICE VISIT Date of Service: 09/22/24 1107 MR#: [id number] Acct: [id number] Name: KAREN BALLARD Rep #: [id number] : 1955 From: Zachery Snider MD Age/Sex: 69/F [place] [facility] [place] Signed HPI Subjective Date of Service 09/22/24 Chief Complaint F/u for L DVT. History of Present Illness 69-year-old woman with multiple episodes of DVT in the left leg is referred because she has DVT in the left leg and it has been suggested she continues Eliquis for life. She had her first DVT in the left leg in the 1970s when she was on control and also smoking, was treated with Coumadin. She had a second episode in 1992 which she attributes to horseback riding. In December 2023, she was slammed on the left left leg by a car door and has pain in the left leg. Venous Doppler showed acute DVT in left common femoral vein left femoral vein, left deep femoral vein, left popliteal vein, left tibioperoneal trunk, left peroneal vein, left posterior tibial vein, left soleus vein, and left gastrocnemius vein on 12/21/2023. She was started on Eliquis but she would like to come off. She did thrombotic risk profile and comes for follow up. She feels well. She has resumed Eliquis at 2.5mg bid. Had L superficial vein procedure done about `15yrs ago. [facility] Medical History Osteopenia Hypertension Tobacco use Hyperlipidemia History of DVT (deep vein thrombosis) Surgical History History of tonsillectomy and adenoidectomy History of ankle surgery Hx of tubal ligation H/O myringotomy Family History Father Heart disease Respiratory disease Aunt Diabetes Mother Heart disease Leukemia Social History Smoking Status: Current every day smoker Tobacco: How many years used: 50 alcohol intake: current alcohol intake frequency: holidays/special occasions only substance use type: does not use what type of physical activity do you participate in: none Intake Vital Signs 08/25/24 08:54 09/22/24 11:09 Height 4 ft 10 in 4 ft 10 in Weight: 51.795 kg 51.483 kg BMI 23.8 23.7 BP 149/80 H 178/76 H Blood Pressure Location Lt brachial Lt brachial Position Sitting Sitting Respiration 15 18 Pulse 66 57 L Pulse Source Monitor Monitor Temp 96.7 F L 97.9 F Temperature Source Temporal Artery Temporal Artery Pulse Oximetry (%) 98 95 Oxygen Delivery Method room air room air Intake Accompanied by: Self Is patient in pain?: No Allergies perfume Allergy (Unknown, Verified 09/22/24 11:11) headache venlafaxine (From Effexor) Allergy (Unknown, Verified 09/22/24 11:11) GI upset nickel Allergy (Verified 09/22/24 11:11) Rash bupropion Adverse Reaction (Unknown, Verified 09/22/24 11:11) anxiety lisinopril Adverse Reaction (Unknown, Verified 09/22/24 11:11) cough paroxetine (From Paxil) Adverse Reaction (Unknown, Verified 09/22/24 11:11) weight gain Medications ???Medication ???Instructions ???Recorded ???Confirmed ???Type apixaban 5 mg tablet (Eliquis) 5 mg PO BID 03/31/25 07/24/25 Hist ory sertraline 100 mg tablet 50 mg PO QDAY 05/30/24 09/22/24 Hi story valsartan 160 mg tablet 160 mg PO QDAY 05/30/24 09/22/24 H istory rosuvastatin 10 mg tablet 10 mg PO QMWF 08/17/24 09/22/24 Hi story Have you fallen in the past year?: No Central Venous Access Central Venous Access: No Exam Physical Exam Const alert, oriented x3 and no apparent distress Coding Level of Care Code Off vis,est,level 4 Exam Problem Focused Diagnoses Acute deep vein thrombosis (DVT) of femoral vein of left lower extremity I82.412 Chronicity: acute Laterality: left Heterozygous factor V Leiden mutation D68.51 Assessment and Plan Assessment and Plan (1) Dvt femoral (deep venous thrombosis): Status: Chronic Qualifiers: Chronicity: acute Laterality: left Qualified Code(s): I82.412 - Acute embolism and thrombosis of left femoral vein Comment: L femoral DVT after a car door slammed on her L leg in December 2023, looks like provoked DVT. Has had multiple clots in the left leg before this episode. Has also had L vein procedure about 15yrs ago. She is on Eliquis, will like to come off. D-dimers are normal so she can go down to prophylactic dose of 2.5mg bid. Plan: To do Eliquis 2.5mg bid for DVT Prophylaxis.. (2) Heterozygous factor V Leiden mutation: Status: Chronic Comment: Since she has had multiple episodes of clotting, she can take prophylactic dose for the rest of her life. Had a long discussion about prophylactic use of anticoa (more content not included)... Normal [facility] Breast imaging reportOrdered By: Donovan Bullard on 09-06-2024 Study report [facility] Imaging Services [address] [place], [place] [id number] SCRN MAMM (CAD)W/ANDRES LEWIS MR#: [id number] Acct: [id number] Name: KAREN BALLARD Rep #: [id number] : 1955 F 69 From: Jesse Bullard MD PCP: Dr. Karthikeyan Flores MD Status: RE G CLI Study:SCRN MAMM (CAD)W/ANDRES BILAT Date of Exa m: 09/06/24 Exam# [id number] Ordering Dr: Karthikeyan Flores MD EXAM: SCRN MAMM (CAD)W/ANDRES BILAT DATE: 09/06/2024 CLINICAL HISTORY: F, Age 69 y/o , SCREENING Aunts with breast cancer. Prior right stereotactic breast biopsy. TECHNIQUE: SCRN MAMM (CAD)W/ANDRES BILAT COMPARISON: Prior exam(s) dated April 02, 2021.. FINDINGS: TISSUE DENSITY: The breasts are extremely dense, which lowers the sensitivity ofmammography. Bilateral Breast Mammographic Findings: No significant masses, calcifications or other abnormalities are identified. A tissue clip marker is once again seen in the slightly upper medial aspect of the right breast. No suspicious masses, areas of developing architectural distortion, or suspicious calcifications. There has been no significant interval change. BI/SCRN MAMM (CAD)W/ANDRES BILAT IMPRESSION: Stable examination. OVERALL FINAL ASSESSMENT BI-RADS 2: BENIGN RECOMMEND ANNUAL MAMMOGRAPHIC SCREENING. RECOMMENDATION: Routine annual follow-up in 1 Year A letter with findings and recommendations will be mailed to the patient. Reading Location: [place] [address] CC: Dr. Karthikeyan Flores MD ~ Senior Mechanical Design Engineer: Signed [facility] SCRN MAMM (CAD)W/ANDRES BILATo n 09-06-2024 SCRN MAMM (CAD)W/ANDRES BILAT [facility] Imaging Services [address] [place] [id number] SCRN MAMM (CAD)W/ANDRES BILAT MR#: [id number] Acct: [id number] Name: KAREN BALLARD Rep #: [id number] : 1955 F 69 From: Donovan nolasco MD PCP: Dr. Karthikeyan Flores MD Status: REG CLI Study: SCRN MAMM (CAD)W/ANDRSE BILAT Date of Exam: 10/24 Exam# [id number] Ordering Dr: Karthikeyan Flores MD EXAM: SCRN MAMM (CAD)W/ANDRES BILAT DATE: 09/06/2024 CLINICAL HISTORY: F, Age 69 y/o , SCREENING Aunts with breast cancer. Prior right stereotactic breast biopsy. TECHNIQUE: SCRN MAMM (CAD)W/ANDRES BILAT COMPARISON: Prior exam(s) dated April 02, 2021.. FINDINGS: TISSUE DENSITY: The breasts are extremely dense, which lowers the sensitivity of mammography. Bilateral Breast Mammographic Findings: No significant masses, calcifications or other abnormalities are identified. A tissue clip marker is once again seen in the slightly upper medial aspect of the right breast. No suspicious masses, areas of developing architectural distortion, or suspicious calcifications. There has been no significant interval change. BI/SCRN MAMM (CAD)W/ANDRES BILAT IMPRESSION: Stable examination. OVERALL FINAL ASSESSMENT BI-RADS 2: BENIGN RECOMMEND ANNUAL MAMMOGRAPHIC SCREENING. RECOMMENDATION: Routine annual follow-up in 1 Year A letter with findings and recommendations will be mailed to the patient. Reading Location: [place] [address] CC: Dr. Karthikeyan Flores MD Senior Mechanical Design Engineer: Signed Normal [facility] Oncology Visit Reporton 08-01 Oncology Visit Report [facility] [address] [place] [address] OFFICE VISIT Date of Service: 08/25/24 0854 MR#: [id number] Acct: [id number] Name: KAREN BALLARD Rep #: [id number] : 1955 From: Zachery Snider MD Age/Sex: 69/F [place] [facility] [place]: Signed HPI Subjective Date of Service 08/25/24 Chief Complaint F/u for L DVT. History of Present Illness 69-year-old woman with multiple episodes of DVT in the left leg is referred because she has DVT in the left leg and it has been suggested she continues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 - LIPID Performed By: #### L 500.4100, L100.0100, L500.4050, L501.9985 ####[facility] [address] [place], [address] Cholesterol [Mass/Vol] 279 mg/dL High <=200 [facility] Comment on above: Order Comment: Order Date: 01/27/24Order Info: [id number] - CMPOrder Info: [id number] - LIPID Result Comment: Chol esterol level, Desirable <200 mg/dL Borderline high cholesterol 200-239 mg/dL High cholesterol >=240 mg/dL Recommendations of the NCEP Adult Treatment Panel for the following risk-cutoff thresholds for the [place] population. Performed By: #### L 500.4100, L100.0100, L500.4050, L501.9985 ####[facility] [address] [place], [address] Cholesterol in HDL [Mass/Vol] 93 mg/dL Normal [facility] Comment on above: Order Comment: Order Date: 01/27/24Order Info: 07 - CMPOrder Info: [id number] - LIPID Result Comment: Betsey onal Cholesterol Education Program (NCEP) guidelines: <40 mg/dL: Low HDL-cholesterol (major risk factor for CHD) >= 60 mg/dL: High HDL-cholesterol (negative risk factor for CHD) HDL-cholesterol is affected by a number of factors, e.g. smoking, exercise, hormones, sex and age. Performed By: #### L 500.4100, L100.0100, L500.4050, L501.9985 ####[facility] [address] [place], [address] Cholesterol in LDL [Mass/Vol] 174 mg/dL Normal [facility] Comment on above: Order Comment: Order Date: 01/27/24Order Info: 07 - CMPOrder Info: [id number] - LIPID Result Comment: Bord olxilm=889-678 mg/dL Higher Xpkk=588 mg/dL or greater Performed By: #### L 500.4100, L100.0100, L500.4050, L501.9985 ####[facility] [address] [place], [address] Cholesterol in VLDL [Mass/Vol] 12 mg/dL Normal 5-40 [facility] Comment on above: Order Comment: Order Date: 01/27/24Order Info: [id number] - CMPOrder Info: [id number] - LIPID Performed By: #### L 500.4100, L100.0100, L500.4050, L501.9985 ####[facility] [address] [place], [address] Triglyceride [Mass/Vol] 62 mg/dL Normal [facility] Comment on above: Order Comment: Order Date: 01/27/24Order Info: [id number] - CMPOrder Info: [id number] - LIPID Result Comment: The drugs N-Acetylcysteine and Metamizole may falsely depress this assay. Normal range: <150 mg/dL Borderline High: 150-199 mg/dL High: 200-499 mg/dL Very High: >500 mg/dL Performed By: #### L 500.4100, L100.0100, L500.4050, L501.9985 ####[facility] [address] [place], [address] Lymphocytes Auto (Unsp spec) [#/Vol]Ordered By: Karthikeyan Flores on 05-27-2024 Lymphocytes (Bld) [#/Vol] 1.03 10*3/uL 0.83-4.5 1 [facility] Lymphocytes/100 WBC Auto (Un sp spec)Ordered By: Karthikeyan Flores on 05-27-2024 Lymphocytes/100 WBC (Bld) 19.7 % 19-41 [facility] MCV (mean corpuscular volume ) determinationOrdered By: Karthikeyan Flores on 05-27-2024 MCV (RBC) [Entitic vol] 97.2 fL 81-99 [facility] Mean corpuscular hemoglobin (MCH) determinationOrdered By: Karthikeyan Flores on 05-27-2024 MCH (RBC) [Entitic mass] 33.4 pg High 27.0-32.0 [facility] Mean corpuscular hemoglobin concentration (MCHC) determinationOrdered By: Karthikeyan Flores on 05-27-2024 MCHC (RBC) [Mass/Vol] 34.4 g/dL 32-36 [facility] Mean platelet volume determi nationOrdered By: Karthikeyan Flores on 05-27-2024 Platelet mean volume (Bld) [Entitic vol] 10.0 fL 6.2-12.0 [facility] Microscopic analysis of urin e for red blood cells (RBC)Ordered By: Karthikeyan Flores on 05-27-2024 Microscopic analysis of urine for red blood cells (RBC) 0 SEEN /hpf 0-5 [facility] Urine RBC 0 SEEN /hpf 0-5 [facility] Monocyte percentageOrdered B y: Karthikeyan Flores on 05-27-2024 Monocytes/100 WBC (Bld) 8.4 % 0-10 [facility] Mucus LM Ql (Urine sed)Order ed By: Karthikeyan Flores on 05-27-2024 Mucus Ql (Urine sed) 0 SEEN /hpf [facility] Neutrophil percentageOrdered By: Karthikeyan Flores on 05-27-2024 Neutrophils/100 WBC (Bld) 68.9 % 47-70 [facility] Nitrite Test strip Ql (U)Ord ered By: Karthikeyan Flores on 05-27-2024 Nitrite Ql (U) Negative Negative [facility] Nucleated red blood cell per centageOrdered By: Karthikeyan Flores on 05-27-2024 Nucleated RBC/100 WBC (Bld) [Ratio] 0 % 0-5 [facility] Platelet countOrdered By: Kelsey Flores on 05-27-2024 Platelets (Bld) [#/Vol] 358 10*3/uL 150-450 [facility] Potassium (Unsp spec) [Mass/ Vol]Ordered By: Karthikeyan Flores on 05-27-2024 Potassium [Moles/Vol] 4.4 mmol/L 3.3-5.1 [facility] Potassium measurement (mass/ volume)Ordered By: Karthikeyan Flores on 05-27-2024 Potassium (Unsp spec) [Mass/Vol] 4.4 mmol/L 3.3-5.1 [facility] Protein Test strip Ql (U)Ord ered By: Karthikeyan Flores on 05-27-2024 Protein Ql (U) Negative Negative [facility] RBC Auto (Bld) [#/Vol]Ordere d By: Karthikeyan Flores on 05-27-2024 RBC (Bld) [#/Vol] 4.34 10*6/uL 4.2-5.4 [facility] Screening total cholesterol/ high density lipoprotein (HDL) cholesterol ratioOrdered By: Karthikeyan Flores on 05-27-2024 Cholesterol.total/Cholest gaby in HDL [Mass ratio] 3.00 {ratio} [facility] Serum creatinine measurement (mass/volume)Ordered By: Karthikeyan Flores on 05-27-2024 Creatinine [Mass/Vol] 0.64 mg/dL Low 0.70-1.20 [facility] Serum globulin measurementOr dered By: Karthikeyan Flores on 05-27-2024 Globulin (S) [Mass/Vol] 2.6 g/dL 2.2-4.2 [facility] Serum glucose measurement (m ass/volume)Ordered By: Karthikeyan Flores on 05-27-2024 Glucose [Mass/Vol] 111 mg/dL High 70-99 [facility] Serum or plasma alanine tobin otransferase (ALT) measurementOrdered By: Karthikeyan Flores on 05-27-2024 ALT [Catalytic activity/Vol] 9 U/L <35 [facility] Serum or plasma albumin tonya urement (mass/volume)Ordered By: Karthikeyan Flores on 05-27-2024 Albumin [Mass/Vol] 4.6 g/dL 3.4-4.8 [facility] Serum or plasma albumin/glob ulin mass ratioOrdered By: Karthikeyan Flores on 05-27-2024 Albumin/Globulin [Mass ratio] 1.8 {ratio} 0.9-2.4 [facility] Serum or plasma alkaline zonia sphatase measurementOrdered By: Karthikeyan Flores on 05-27-2024 ALP [Catalytic activity/Vol] 78 U/L 35-104 [facility] Serum or plasma calcium tonya urement (mass/volume)Ordered By: Karthikeyan Flores on 05-27-2024 Calcium [Mass/Vol] 9.9 mg/dL 7.6-11.0 [facility] Serum or plasma cholesterol in HDL measurement (mass/volume)Ordered By: Karthikeyan Flores on 05-27-2024 Cholesterol in HDL [Mass/Vol] 93 mg/dL >40 [facility] Comment on above: National Cholesterol Education Program (NCEP) guidelines:<40 mg/dL: Low HDL-cholesterol (major risk factor for CHD)>= 60 mg/dL: High HDL-cholesterol (negative risk factor for CHD)HDL-cholesterol is affected by a number of factors, e.g. smoking, exercise, hormones, sex and age. Serum or plasma cholesterol measurement (mass/volume)Ordered By: Karthikeyan Flores on 05-27-2024 Cholesterol [Mass/Vol] 279 mg/dL High <201 [facility] Comment on above: Cholesterol level, D esirable <200 mg/dLBorderline high cholesterol 200-239 mg/dLHigh cholesterol >=240 mg/dLRecommendations of the NCEP Adult Treatment Panel for the following risk-cutoff thresholds for the [place] population. Serum or plasma urea nitroge n measurement (mass/volume)Ordered By: Karthikeyan Flores on 05-27-2024 Urea nitrogen [Mass/Vol] 14 mg/dL 4-19 [facility] Sodium levelOrdered By: Karthikeyan Flores on 05-27-2024 Sodium [Moles/Vol] 139 mmol/L 133-145 [facility] Squamous epithelial cells de tection in urine sediment by light microscopyOrdered By: Karthikeyan Flores on 05-27-2024 Epithelial cells.squamous LM Ql (Urine sed) 0-5 SEEN /hpf 5-10 [facility] Total proteinOrdered By: Hiro Flores on 05-27-2024 Protein [Mass/Vol] 7.2 g/dL 5.9-8.4 [facility] Triglycerides measurementOrd ered By: Karthikeyan Flores on 05-27-2024 Triglyceride [Mass/Vol] 62 mg/dL <199 [facility] Comment on above: The drugs N-Acetylcy steine and Metamizole may falsely depress this assay. Normal range: <150 mg/dLBorderline High: 150-199 mg/dLHigh: 200-499 mg/dLVery High: >500 mg/dL Urinalysis, Completeon 05-27 BACTERIA RARE Normal None Seen [facility] Comment on above: Order Comment: CLEAN CATCH Performed By: #### L 400.0001 #### [facility] [address] [place], [address] EPI,SQUAMOUS 0-5 SEEN Normal 5-10 [facility] Comment on above: Order Comment: CLEAN CATCH Performed By: #### L 400.0001 #### [facility] [address] [place], [address] RBC 0 SEEN Normal 0-5 [facility] Comment on above: Order Comment: CLEAN CATCH Performed By: #### L 400.0001 #### [facility] [address] [place], [address] WBC 0-5 SEEN Normal 0-5 [facility] Comment on above: Order Comment: CLEAN CATCH Performed By: #### L 400.0001 #### [facility] [address] [place], [address] Mucus Ql (Urine sed) 0 SEEN Normal [facility] Comment on above: Order Comment: CLEAN CATCH Performed By: #### L 400.0001 #### [facility] [address] [place], [place], [id number] Urine blood detectionOrdered By: Karthikeyan Flores on 05-27-2024 Urine Occult Blood Negative Negative [facility] Urine clarityOrdered By: Hiro Flores on 05-27-2024 Clarity (U) Clear Clear [facility] Urine color determinationOrd ered By: Karthikeyan Flores on 05-27-2024 Color (U) Yellow Yellow [facility] Urine glucose detectionOrder ed By: Karthikeyan Flores on 05-27-2024 Glucose Ql (U) Normal mg/dl Normal [facility] Urine leukocyte esterase det ection by dipstickOrdered By: Karthikeyan Flores on 05-27-2024 Leukocyte esterase Test strip Ql (U) Negative Negative [facility] Urine pHOrdered By: Karthikeyan guerin on 05-27-2024 pH (U) 6.0 [pH] 5.0 - 8.0 [facility] Urine sediment bacteria coun t by microscopy (number/high power field)Ordered By: Karthikeyan Flores on 05-27-2024 Bacteria LM.HPF (Urine sed) [#/Area] RARE /hpf None Seen [facility] Urine specific gravity measu rementOrdered By: Karthikeyan Flores on 05-27-2024 Specific gravity (U) [Rel density] 1.020 1.002-1.030 [facility] Urine urobilinogen measureme ntOrdered By: Karthikeyan Flores on 05-27-2024 Urobilinogen Ql (U) Normal mg/dl Normal [facility] Urobilinogen Ql (U)Ordered B y: Karthikeyan Flores on 05-27-2024 Urine Urobilinogen Normal mg/dl Normal [facility] Vitamin D, 25-hydroxyOrdered By: Karthikeyan Flores on 05-27-2024 Vitamin D 25-Hydroxy 33.9 ng/mL 30-100 [facility] Comment on above: Vitamin D StatusDefi ciency: <20 ng/mL (50nmol/L)Insufficiency: 20-30 ng/mL (50-75 nmol/L)Sufficiency: 30-100 ng/mL (75-250 nmol/L)Toxicity: >100 ng/mL (>250 nmol/L) White blood cell (WBC) count Ordered By: Karthikeyan Flores on 05-27-2024 WBC (Bld) [#/Vol] 5.2 10*3/uL 4.4-11.0 [facility] White blood cell countOrdere d By: Karthikeyan Flores on 05-27-2024 Urine WBC 0-5 SEEN /hpf 0-5 [facility] White blood cell count 0-5 SEEN /hpf 0-5 [facility] Chest PA and Lateralon 01-05 Chest PA and Lateral [facility] Imaging Services [address], [place] [id number] Chest PA and Lateral MR#: [id number] Acct: [id number] Name: KAREN BALLARD Rep #: [id number] : 1955 F 68 From: Blake Wallace MD PCP: Dr. Karthikeyan Flores MD Status: REG CLI Study: Chest PA and Lateral Date of Exam: 01/06/24 Exam# [id number] Ordering Dr: Karthikeyan Flores MD -[id number] EXAM: XR CHEST, 2 VIEWS CLINICAL INDICATION: ACUTE BRONCHITIS TECHNIQUE: Frontal and lateral views of the chest. COMPARISON: September 08, 2022 FINDINGS: LUNGS AND PLEURAL SPACES: Suggestion of emphysema with hyperlucency at the upper lungs. No pneumothorax. No effusion. HEART: Unremarkable. Cardiac silhouette not enlarged. MEDIASTINUM: Central airways and mediastinal contour are unremarkable. BONES/JOINTS: Unremarkable. No acute fracture. SOFT TISSUES: Unremarkable. RAD/Chest PA and Lateral IMPRESSION: No acute disease. Electronically Signed: Blake Wallace MD at 4:26 EST , CC: Dr. Karthikeyan Flores MD Senior Mechanical Design Engineer: Signed Normal [facility] CBC W/Diff, Automatedon 10-2 Absolute Lymph 0.95 X10 3/uL Normal 0.83-4.51 [facility] Comment on above: Order Comment: CONFI MARLEN W/REG PT-DOING DR FLORES ORDER Order Date: 08/01/23 Order Info: [id number] - CBCD Performed By: #### L 501.9985, L506.1000, L100.0100, L500.4050, L500.4100 #### [facility] [address] [place], [address] Absolute Neut 7.2 X10 3/uL Normal 2.0-7.7 [facility] Comment on above: Order Comment: CONFI RMED W/REG PT-DOING DR FLORES ORDER Order Date: 08/01/23 Order Info: [id number] - CBCD Performed By: #### L 501.9985, L506.1000, L100.0100, L500.4050, L500.4100 #### [facility] [address] [place], [address] Basophils/100 WBC (Bld) 0.4 % Normal 0-1 [facility] Comment on above: Order Comment: DYLAN GEE W/REG PT-DOING DR FLORES ORDER Order Date: 08/01/23 Order Info: [id number] - CBCD Performed By: #### L 501.9985, L506.1000, L100.0100, L500.4050, L500.4100 #### [facility] [address] [facility] [place], [address] Eosinophils/100 WBC (Bld) 1.0 % Normal 0-5 [facility] Comment on above: Order Comment: DYLAN GEE W/REG PT-DOING DR FLORES ORDER Order Date: 08/01/23 Order Info: [id number] - CBCD Performed By: #### L 501.9985, L506.1000, L100.0100, L500.4050, L500.4100 #### [facility] [address] [facility] [place], [address] Erythrocyte distribution width (RBC) [Ratio] 12.9 % Normal 11.6-14.6 [facility] Comment on above: Order Comment: DYLAN GEE W/REG PT-DOING DR FLORES ORDER Order Date: 08/01/23 Order Info: [id number] - CBCD Performed By: #### L 501.9985, L506.1000, L100.0100, L500.4050, L500.4100 #### [facility] [address] [facility] [place], [address] Hematocrit (Bld) [Volume fraction] 45.0 % Normal 37-47 [facility] Comment on above: Order Comment: DYLAN GEE W/REG PT-DOING DR FLORES ORDER Order Date: 08/01/23 Order Info: [id number] - CBCD Performed By: #### L 501.9985, L506.1000, L100.0100, L500.4050, L500.4100 #### [facility] [address] [place], [address] Hemoglobin (Bld) [Mass/Vol] 14.6 g/dL Normal 12.0-15.0 [facility] Comment on above: Order Comment: DYLAN RMED W/REG PT-DOING DR FLORES ORDER Order Date: 08/01/23 Order Info: [id number] - CBCD Performed By: #### L 501.9985, L506.1000, L100.0100, L500.4050, L500.4100 #### [facility] [address] [place], [address] IG% 0.500 Normal 0.0-0.9 [facility] Comment on above: Order Comment: DYLAN GEE W/REG PT-DOING DR FLORES ORDER Order Date: 08/01/23 Order Info: [id number] - CBCD Result Comment: IG% - Immature Granulocytes (promyelocytes, myelocytes and metamyelocytes) > 1% indicates that a LEFT SHIFT is Present. Performed By: #### L 501.9985, L506.1000, L100.0100, L500.4050, L500.4100 #### [facility] [address] [place], [address] Lymphocytes/100 WBC (Bld) 9.8 % Low 19-41 [facility] Comment on above: Order Comment: DYLAN RMED W/REG PT-DOING DR FLORES ORDER Order Date: 08/01/23 Order Info: [id number] - CBCD Performed By: #### L 501.9985, L506.1000, L100.0100, L500.4050, L500.4100 #### [facility] [address] [place], [address] MCH (RBC) [Entitic mass] 32.4 pg High 27.0-32.0 [facility] Comment on above: Order Comment: DYLAN GEE W/REG PT-DOING DR FLORES ORDER Order Date: 08/01/23 Order Info: [id number] - CBCD Performed By: #### L 501.9985, L506.1000, L100.0100, L500.4050, L500.4100 #### [facility] [address] [place], [address] MCHC (RBC) [Mass/Vol] 32.4 g/dL Normal 32-36 [facility] Comment on above: Order Comment: DYLAN GEE W/REG PT-DOING DR FLORES ORDER Order Date: 08/01/23 Order Info: [id number] - CBCD Performed By: #### L 501.9985, L506.1000, L100.0100, L500.4050, L500.4100 #### [facility] [address] [place], [address] MCV (RBC) [Entitic vol] 99.8 fL High 81-99 [facility] Comment on above: Order Comment: DYLAN GEE W/REG PT-DOING DR FLORES ORDER Order Date: 08/01/23 Order Info: [id number] - CBCD Performed By: #### L 501.9985, L506.1000, L100.0100, L500.4050, L500.4100 #### [facility] [address] [place], [address] Monocytes/100 WBC (Bld) 13.6 % High 0-10 [facility] Comment on above: Order Comment: DYLAN GEE W/REG PT-DOING DR FLORES ORDER Order Date: 08/01/23 Order Info: [id number] - CBCD Performed By: #### L 501.9985, L506.1000, L100.0100, L500.4050, L500.4100 #### [facility] [address] [place], [address] Neutrophils/100 WBC (Bld) 74.7 % High 47-70 [facility] Comment on above: Order Comment: DYLAN GEE W/REG PT-DOING DR FLORES ORDER Order Date: 08/01/23 Order Info: [id number] - CBCD Performed By: #### L 501.9985, L506.1000, L100.0100, L500.4050, L500.4100 #### [facility] [address] [place], [address] Nucleated RBC (Bld) [#/Vol] 0 10*3/uL Normal 0-5 [facility] Comment on above: Order Comment: DYLAN GEE W/REG PT-DOING DR FLORES ORDER Order Date: 08/01/23 Order Info: [id number] - CBCD Performed By: #### L 501.9985, L506.1000, L100.0100, L500.4050, L500.4100 #### [facility] [address] [place], [address] Platelet mean volume (Bld) [Entitic vol] 9.9 fL Normal 6.2-12.0 [facility] Comment on above: Order Comment: DYLAN GEE W/REG PT-DOING DR FLORES ORDER Order Date: 08/01/23 Order Info: [id number] - CBCD Performed By: #### L 501.9985, L506.1000, L100.0100, L500.4050, L500.4100 #### [facility] [address] [place], [address] Platelets (Bld) [#/Vol] 283 10*3/uL Normal 150-450 [facility] Comment on above: Order Comment: DYLAN GEE W/REG PT-DOING DR FLORES ORDER Order Date: 08/01/23 Order Info: [id number] - CBCD Performed By: #### L 501.9985, L506.1000, L100.0100, L500.4050, L500.4100 #### [facility] [address] [place], [place], [address] RBC (Bld) [#/Vol] 4.51 10*6/uL Normal 4.2-5.4 [facility] Comment on above: Order Comment: DYLAN MUNGUIAED W/REG PT-DOING DR FLORES ORDER Order Date: 08/01/23 Order Info: [id number]- - CBCD Performed By: #### L 501.9985, L506.1000, L100.0100, L500.4050, L500.4100 #### [facility] [address] [place], [address] RDW SD 47.9 fl High 35.1-43.9 [facility] Comment on above: Order Comment: DYLAN MUNGUIAED W/REG PT-DOING DR FLORES ORDER Order Date: 08/01/23 Order Info: [id number]- - CBCD Performed By: #### L 501.9985, L506.1000, L100.0100, L500.4050, L500.4100 #### [facility] [address] [place], [place], [address] WBC (Bld) [#/Vol] 9.7 10*3/uL Normal 4.4-11.0 [facility] Comment on above: Order Comment: DYLAN NILDAED W/REG PT-DOING DR FLORES ORDER Order Date: 08/01/23 Order Info: [id number] - CBCD Performed By: #### L 501.9985, L506.1000, L100.0100, L500.4050, L500.4100 #### [facility] [address] [place], [place], [id number] Comprehensive Metabolic Prof il 12-21-2023 Albumin [Mass/Vol] 3.8 g/dL Normal 3.2-5.0 [facility] Comment on above: Order Comment: DYLAN MUNGUIAED W/REG PT-DOING DR FLORES ORDER Order Date: 08/01/23 Order Info: [id number] - CMP Order Info: [id number] - LIPID Performed By: #### L 501.9985, L506.1000, L100.0100, L500.4050, L500.4100 #### [facility] [address] [place], [address] Albumin/Globulin [Mass ratio] 1.0 {ratio} Normal 0.9-2.4 [facility] Comment on above: Order Comment: DYLAN UMNGUIAED W/REG PT-DOING DR FLORES ORDER Order Date: 08/01/23 Order Info: [id number] - CMP Order Info: [id number] - LIPID Performed By: #### L 501.9985, L506.1000, L100.0100, L500.4050, L500.4100 #### [facility] [address] [place], [address] ALK P 128 U/L High 45-117 [facility] Comment on above: Order Comment: DYLAN GEE W/REG PT-DOING DR FLORES ORDER Order Date: 08/01/23 Order Info: [id number] - CMP Order Info: [id number] - LIPID Performed By: #### L 501.9985, L506.1000, L100.0100, L500.4050, L500.4100 #### [facility] [address] [place], [address] ALT [Catalytic activity/Vol] 12 U/L Low 13-56 [facility] Comment on above: Order Comment: DYLAN GEE W/REG PT-DOING DR FLORES ORDER Order Date: 08/01/23 Order Info: [id number] - CMP Order Info: [id number] - LIPID Performed By: #### L 501.9985, L506.1000, L100.0100, L500.4050, L500.4100 #### [facility] [address] [place], [address] AST [Catalytic activity/Vol] 12 U/L Low 15-37 [facility] Comment on above: Order Comment: DYLAN RMED W/REG PT-DOING DR FLORES ORDER Order Date: 08/01/23 Order Info: [id number] - CMP Order Info: [id number] - LIPID Performed By: #### L 501.9985, L506.1000, L100.0100, L500.4050, L500.4100 #### [facility] [address] [place], [address] Bilirubin [Mass/Vol] 0.70 mg/dL Normal 0.20-1.00 [facility] Comment on above: Order Comment: OTISJuwan RMED W/REG PT-DOING DR FLORES ORDER Order Date: 08/01/23 Order Info: [id number] - CMP Order Info: [id number] - LIPID Result Comment: For patients on eltrombopag therapy, use of Dimension [place] TBIL is not recommended. Performed By: #### L 501.9985, L506.1000, L100.0100, L500.4050, L500.4100 #### [facility] [address] [place], [address] BUN/CRE 20.2 RATIO High 10-20 [facility] Comment on above: Order Comment: DYLAN RMED W/REG PT-DOING DR FLORES ORDER Order Date: 08/01/23 Order Info: [id number] - CMP Order Info: [id number] - LIPID Performed By: #### L 501.9985, L506.1000, L100.0100, L500.4050, L500.4100 #### [facility] [address] [place], [address] CA,Total 10.3 mg/dL High 8.5-10.1 [facility] Comment on above: Order Comment: DYLAN RMED W/REG PT-DOING DR FLORES ORDER Order Date: 08/01/23 Order Info: 07 - CMP Order Info: [id number] - LIPID Performed By: #### L 501.9985, L506.1000, L100.0100, L500.4050, L500.4100 #### [facility] [address] [place], [address] Chloride [Moles/Vol] 103 mmol/L Normal 98-107 [facility] Comment on above: Order Comment: CONFI RMED W/REG PT-DOING DR FLORES ORDER Order Date: 08/01/23 Order Info: [id number] - CMP Order Info: [id number] - LIPID Performed By: #### L 501.9985, L506.1000, L100.0100, L500.4050, L500.4100 #### [facility] [address] [place], [address] CO2 [Moles/Vol] 28.0 mmol/L Normal 21.0-32.0 [facility] Comment on above: Order Comment: CONFI RMED W/REG PT-DOING DR FLORES ORDER Order Date: 08/01/23 Order Info: [id number]- - CMP Order Info: [id number] - LIPID Performed By: #### L 501.9985, L506.1000, L100.0100, L500.4050, L500.4100 #### [facility] [address] [place], [address] Creatinine [Mass/Vol] 0.64 mg/dL Normal 0.55-1.02 [facility] Comment on above: Order Comment: CONFI RMED W/REG PT-DOING DR FLORES ORDER Order Date: 08/01/23 Order Info: [id number] - CMP Order Info: [id number] - LIPID Result Comment: The validity of the calculated GFR GFRAA in patients over 70 years has not been determined. Clinical correlation is essential. Performed By: #### L 501.9985, L506.1000, L100.0100, L500.4050, L500.4100 #### [facility] [address] [place], [address] EST GFR - AA 117 mL/min Normal >60 [facility] Comment on above: Order Comment: CONFI RMED W/REG PT-DOING DR FLORES ORDER Order Date: 08/01/23 Order Info: [id number] - CMP Order Info: [id number] - LIPID Result Comment: Afri can Ethiopian GFR Calc Performed By: #### L 501.9985, L506.1000, L100.0100, L500.4050, L500.4100 #### [facility] [address] [place], [address] GAP 8 Normal 5-15 [facility] Comment on above: Order Comment: DYLAN NILDAED W/REG PT-DOING DR FLORES ORDER Order Date: 08/01/23 Order Info: [id number] - CMP Order Info: [id number] - LIPID Performed By: #### L 501.9985, L506.1000, L100.0100, L500.4050, L500.4100 #### [facility] [address] [place], [address] GFR/1.73 sq M.predicted among non-blacks MDRD (S/P/Bld) [Vol rate/Area] 97 mL/min/{1.73_m2} Normal >60 [facility] Comment on above: Order Comment: OTISJuwan NILDALONA W/REG PT-DOING DR FLORES ORDER Order Date: 08/01/23 Order Info: 07 - CMP Order Info: [id number] - LIPID Result Comment: Non- GFR Calc Performed By: #### L 501.9985, L506.1000, L100.0100, L500.4050, L500.4100 #### [facility] [address] [place], [address] Globulin (S) [Mass/Vol] 3.9 g/dL Normal 2.2-4.2 [facility] Comment on above: Order Comment: DYLAN ED W/REG PT-DOING DR FLORES ORDER Order Date: 08/01/23 Order Info: [id number] - CMP Order Info: [id number] - LIPID Performed By: #### L 501.9985, L506.1000, L100.0100, L500.4050, L500.4100 #### [facility] [address] [place], [address] Glucose [Mass/Vol] 107 mg/dL High 74-106 [facility] Comment on above: Order Comment: OTISI RMED W/REG PT-DOING DR FLORES ORDER Order Date: 08/01/23 Order Info: [id number]- - CMP Order Info: [id number] - LIPID Result Comment: Fast ing Glucose result from 100 to 125 mg/dL suggests IMPAIRED HOMEOSTASIS per A.D.A. criteria. Performed By: #### L 501.9985, L506.1000, L100.0100, L500.4050, L500.4100 #### [facility] [address] [place], [address] Potassium [Moles/Vol] 4.2 mmol/L Normal 3.5-5.1 [facility] Comment on above: Order Comment: OTISI RMED W/REG PT-DOING DR FLORES ORDER Order Date: 08/01/23 Order Info: [id number] - CMP Order Info: [id number] - LIPID Performed By: #### L 501.9985, L506.1000, L100.0100, L500.4050, L500.4100 #### [facility] [address] [place], [address] Sodium [Moles/Vol] 139 mmol/L Normal 136-145 [facility] Comment on above: Order Comment: CONFI RMED W/REG PT-DOING DR FLORES ORDER Order Date: 08/01/23 Order Info: [id number] - CMP Order Info: [id number] - LIPID Performed By: #### L 501.9985, L506.1000, L100.0100, L500.4050, L500.4100 #### [facility] [address] [place], [address] T PROT 7.7 g/dL Normal 6.4-8.2 [facility] Comment on above: Order Comment: DYLAN GEE W/REG PT-DOING DR FLORES ORDER Order Date: 08/01/23 Order Info: [id number] - CMP Order Info: [id number] - LIPID Performed By: #### L 501.9985, L506.1000, L100.0100, L500.4050, L500.4100 #### [facility] [address] [place], [place], [address] Urea nitrogen [Mass/Vol] 13 mg/dL Normal 7-18 [facility] Comment on above: Order Comment: DYLAN MUNGUIAED W/REG PT-DOING DR FLORES ORDER Order Date: 08/01/23 Order Info: [id number] - CMP Order Info: [id number] - LIPID Performed By: #### L 501.9985, L506.1000, L100.0100, L500.4050, L500.4100 #### [facility] [address] [place], [place], [address] Hemoglobin A1con 12-21-2023 HbA1c (Bld) [Mass fraction] 5.6 % Normal 3.8-5.6 [facility] Comment on above: Order Comment: DYLAN GEE W/REG PT-DOING DR FLORES ORDER Order Date: 08/01/23 Order Info: [id number] - A1C Result Comment: Norm al < 5.7 % Prediabetic 5.7 - 6.4 % Diabetic >or= 6.5 % Please note range changes. Performed By: #### L 501.9985, L506.1000, L100.0100, L500.4050, L500.4100 #### [facility] [address] [place], [place], [address] Lipid Profileon 12-21-2023 Cholesterol [Mass/Vol] 225 mg/dL High 200 [facility] Comment on above: Order Comment: DYLAN GEE W/REG PT-DOING DR FLORES ORDEROrder Date: 08/01/23Order Info: [id number] - CMPOrder Info: [id number] - LIPID Result Comment: <200 mg/dL Desirable 200-240 mg/dL Borderline >240 mg/dL High Risk Performed By: #### L 501.9985, L506.1000, L100.0100, L500.4050, L500.4100 ####[facility] [address] [place], [address] Cholesterol in HDL [Mass/Vol] 71 mg/dL Normal [facility] Comment on above: Order Comment: DYLAN GEE W/REG PT-DOING DR FLORES ORDEROrder Date: 08/01/23Order Info: [id number]- - CMPOrder Info: [id number] - LIPID Result Comment: The drugs N-Acetylcysteine and Metamizole may falsely depress this assay. Reference Range HDL <40 mg/dL Low HDL Cholesterol HDL >or= 60 mg/dL High HDL Cholesterol Performed By: #### L 501.9985, L506.1000, L100.0100, L500.4050, L500.4100 ####[facility] [address] [place], [address] Cholesterol in LDL [Mass/Vol] 132 mg/dL High 0-130 [facility] Comment on above: Order Comment: DYLAN GEE W/REG PT-DOING DR FLORES ORDEROrder Date: 08/01/23Order Info: [id number]- - CMPOrder Info: [id number] - LIPID Performed By: #### L 501.9985, L506.1000, L100.0100, L500.4050, L500.4100 ####[facility] [address] [place], [address] Cholesterol in VLDL [Mass/Vol] 22 mg/dL Normal 5-40 [facility] Comment on above: Order Comment: DYLAN GEE W/REG PT-DOING DR FLORES ORDEROrder Date: 08/01/23Order Info: [id number]- - CMPOrder Info: [id number] - LIPID Performed By: #### L 501.9985, L506.1000, L100.0100, L500.4050, L500.4100 ####[facility] [address] [place], [address] Triglyceride [Mass/Vol] 109 mg/dL Normal [facility] Comment on above: Order Comment: CONFI RMED W/REG PT-DOING DR FLORES ORDEROrder Date: 08/01/23Order Info: [id number] - CMPOrder Info: [id number] - LIPID Result Comment: The drugs N-Acetylcysteine and Metamizole may falsely depress this assay. Serum Triglycerides Reference Interval Normal <150 mg/dL Borderline high 150 - 199 mg/dL High 200 - 499 mg/dL Very High > or = 500 mg/dL Performed By: #### L 501.9985, L506.1000, L100.0100, L500.4050, L500.4100 ####[facility] [address] [place], [address] Urinalysis, Completeon 12-20 BACTERIA 1+ /hpf Normal None Seen [facility] Comment on above: Order Comment: [facility]MICRO Urine, Random Performed By: #### L 400.0001 #### [facility] [address] [place], [address] EPI,SQUAMOUS 0-5 SEEN Normal 5-10 [facility] Comment on above: Order Comment[facility] Urine, Random Performed By: #### L 400.0001 #### [facility] [address] [place], [address] WBC 0-5 SEEN Normal 0-5 [facility] Comment on above: Order Comment: [facility]/MICRO Urine, Random Performed By: #### L 400.0001 #### [facility] [address] [place], [address] Mucus Ql (Urine sed) 0 SEEN Normal [facility] Comment on above: Order Comment: PER I NTERFACE COMMENT-UAW/MICRO Urine, Random Performed By: #### L 400.0001 #### [facility] [address] [place], [address] RBC 0 SEEN Normal 0-5 [facility] Comment on above: Order Comment: PER Juwan JOHNSONERMARSHALL COMMENT-UAW/MICRO Urine, Random Performed By: #### L 400.0001 #### [facility] [address] [place], [address] Venous Duplex US, Unilateral on 12-21-2023 Venous Duplex US, Unilateral [facility] [address] [place] [address] Venous Duplex US, Unilateral 12/21/23 1426 MR#: [id number] Acct: [id number] Name: KAREN BALLARD Rep #: [id number] : 1955 68 From: Stephane Thompson MD Attending Dr: Danilo Mancera NP PROOF CARRIER-C Status: RE G CLI Ordering Dr: Danilo Mancera NP PROOF CARRIER-C Date: 12/21/23 Location: LAB Sex: F C Admitted: Reason For Study: LLE Pain RIGHT LEFT CFV is compressible, spontaneous, phasic, Lt CFV - FV - Deep Fem V - Pop V - T/P Trunk competent and demonstrates normal - Gastroc V - Soleus V - PTV - Migdalia V appear augmentation. DILATED and NONCOMPRESSIBLE. Procedure This is a venous duplex using B-mode, color Lt EIV appears to have PULSATILE flow in flow and spectral Doppler. pulsed wave and color doppler. Exam performed in department. The exam was diagnostic. Continuous flow noted in CFV A preliminary report was called and/or faxed to [facility]. 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 Continuous flow noted in POP V SSV is DILATED and NONCOMPRESSIBLE throughout. GSV is compressible at distal calf and appears to have been ablated from mid calf to prox thigh. VL/Venous Duplex US, Unilateral Interpretation Summary Acute deep vein thrombosis is noted in the left common femoral vein. Acute deep vein thrombosis is noted in the left femoral vein. Acute deep vein thrombosis is noted in the deep femoral vein. Acute deep vein thrombosis is noted in the left popliteal vein. Acute deep vein thrombosis is noted in the left tibio-peroneal trunk. Acute deep vein thrombosis is noted in the left peroneal vein. Acute deep vein thrombosis is noted in the left posterior tibial vein. Acute deep vein thrombosis is noted in the left soleus vein. Acute deep vein thrombosis is noted in the left gastrocnemius vein. A duplicate left femoral vein is noted to be patent and compressible from the proximal thigh to the knee. The left external iliac vein appears patent. Acute thrombus in the left common femoral vein and popliteal vein are only partially occlusive. The left great saphenous vein is patent and compressible in the distal calf, but appears to have been ablated more proximally. Acute superficial thrombophlebitis is noted in the left small saphenous vein. The right common femoral vein is patent and compressible. __ Ordering Physician: Danilo Mancera Referring Physician: Karthikeyan Flores Performed By: Denys Villalpando Peggy 12/22/231709 Date Stephane Thompson MD CC: Danilo HOLLEY PROOF CARRIER-C Calderon; Dr. Masood Lantigua MD; Dr. Karthikeyan Flores MD Date Dictated: 12/21/23 1426 Date Transcribed: 12/22/231709 Senior Mechanical Design Engineer: Signed Normal [facility] Vitamin D,25 Hydroxyon 12-20 Vitamin D 25-OH 33.1 ng/mL Normal [facility] Comment on above: Order Comment: CONFI RMED W/REG PT-DOING DR FLORES ORDER Order Date: 08/01/23 Order Info: [id number] - [id number] Result Comment: Priscila min D 25(OH) Status Range Deficiency <20 ng/mL (50nmol/L) Insufficiency 20 - 30 ng/mL (50 - 75 nmol/L) Sufficiency 30 - 100 ng/mL (75 - 250 nmol/L) Toxicity >100 ng/mL (>250 nmol/L) Performed By: #### L 501.9985, L506.1000, L100.0100, L500.4050, L500.4100 #### [facility] [address] [place], [address] Absolute lymphocyte countOrd ered By: Karthikeyan Flores on 12-26-2022 Lymphocytes Auto (Unsp spec) [#/Vol] 1.44 10*3/uL 0.83-4.51 [facility] Basophil percentageOrdered B y: Karthikeyan Flores on 12-26-2022 Basophil percentage 0 SEEN /hpf 0-5 [facility] Basophils/100 WBC (Bld) 0.7 % 0-1 [facility] Bilirubin [Mass/Vol] 1.10 mg/dL 0.20-1.00 [facility] Comment on above: For patients on eltr ombopag therapy, use of Dimension [place] TBIL is not recommended. Chloride [Moles/Vol] 103 mmol/L 98-107 [facility] Cholesterol [Mass/Vol] 215 mg/dL <200 [facility] Comment on above: <200 mg/dL Desirable 200-240 mg/dL Borderline >240 mg/dL High Risk Eosinophils/100 WBC (Bld) 2.6 % 0-5 [facility] Glucose [Mass/Vol] 123 mg/dL 74-106 [facility] Comment on above: Fasting Glucose resu lt from 100 to 125 mg/dL suggests IMPAIRED HOMEOSTASIS per A.D.A. criteria. Neutrophils (Bld) [#/Vol] 4.4 10*3/uL 2.0-7.7 [facility] Neutrophils/100 WBC (Bld) 64.2 % 47-70 [facility] Potassium [Moles/Vol] 4.1 mmol/L 3.5-5.1 [facility] Protein [Mass/Vol] 7.5 g/dL 6.4-8.2 [facility] Sodium [Moles/Vol] 137 mmol/L 136-145 [facility] Triglyceride [Mass/Vol] 67 mg/dL <199 [facility] Comment on above: The drugs N-Acetylcy steine and Metamizole may falsely depress this assay.Serum Triglycerides Reference Interval Normal <150 mg/dL Borderline high 150 - 199 mg/dL High 200 - 499 mg/dL Very High > or = 500 mg/dL WBC (Bld) [#/Vol] 6.8 10*3/uL 4.4-11.0 [facility] Bilirubin Test strip Ql (U)O rdered By: Karthikeyan Flores on 12-26-2022 Bilirubin Ql (U) Negative Negative [facility] Blood erythrocytes count (nu mber/volume)Ordered By: Karthikeyan Flores on 12-26-2022 RBC (Bld) [#/Vol] 4.06 10*6/uL 4.2-5.4 [facility] Blood hemoglobin measurement (mass/volume)Ordered By: Karthikeyan Flores on 12-26-2022 Hemoglobin (Bld) [Mass/Vol] 13.7 g/dL 12.0-15.0 [facility] Blood lymphocytes/100 leukoc ytesOrdered By: Karthikeyan Flores on 12-26-2022 Lymphocytes/100 WBC (Bld) 21.2 % 19-41 [facility] Blood monocytes/100 leukocyt esOrdered By: Karthikeyan Flores on 12-26-2022 Monocytes/100 WBC (Bld) 11.0 % 0-10 [facility] Blood platelet mean volumeOr dered By: Karthikeyan Flores on 12-26-2022 Platelet mean volume (Bld) [Entitic vol] 10.0 fL 6.2-12.0 [facility] Determination of erythrocyte mean corpuscular volume (MCV)Ordered By: Karthikeyan Flores on 12-26-2022 MCV (RBC) [Entitic vol] 103.4 fL 81-99 [facility] Hematocrit Auto (Bld) [Volum e fraction]Ordered By: Karthikeyan Flores on 12-26-2022 Hematocrit (Bld) [Volume fraction] 42.0 % 37-47 [facility] Ketones Test strip Ql (U)Ord ered By: Karthikeyan Flores on 12-26-2022 Ketones Ql (U) Negative Negative [facility] - Chemistry and C hemistry - challengeOrdered By: Karthikeyan Flores on 12-26-2022 ALP [Catalytic activity/Vol] 66 U/L 45-117 [facility] ALT [Catalytic activity/Vol] 22 U/L 13-56 [facility] CO2 [Moles/Vol] 28.0 mmol/L 21.0-32.0 [facility] Globulin (S) [Mass/Vol] 3.7 g/dL 2.2-4.2 [facility] Urea nitrogen/Creatinine [Mass ratio] 28.3 mg/mg 10-20 [facility] - Hematology and Cell countsOrdered By: Karthikeyan Flores on 12-26-2022 Erythrocyte distribution width (RBC) [Entitic vol] 51.6 fL 35.1-43.9 [facility] Erythrocyte distribution width (RBC) [Ratio] 13.5 % 11.6-14.6 [facility] Immature granulocytes/100 WBC (Bld) 0.300 % 0.0-0.9 [facility] Comment on above: IG% - Immature Granu locytes (promyelocytes, myelocytes and metamyelocytes) > 1% indicates that a LEFT SHIFT is Present. MCH (RBC) [Entitic mass] 33.7 pg 27.0-32.0 [facility] Nucleated RBC/100 WBC (Bld) [Ratio] 0 % 0-5 [facility] MCHC Auto (RBC) [Mass/Vol]Or dered By: Karthikeyan Flores on 12-26-2022 MCHC (RBC) [Mass/Vol] 32.6 g/dL 32-36 [facility] Mucus LM Ql (Urine sed)Order ed By: Karthikeyan Flores on 12-26-2022 Mucus Ql (Urine sed) 0 SEEN /hpf [facility] Nitrite Test strip Ql (U)Ord ered By: Karthikeyan Flores on 12-26-2022 Nitrite Ql (U) Negative Negative [facility] No Panel InformationOrdered By: Karthikeyan Flores on 12-26-2022 Estimated GFR (MDRD) Amer 127 mL/min >60 [facility] Comment on above: GFR Calc Estimated GFR (MDRD) Non-Af Amer 105 mL/min >60 [facility] Comment on above: Non- GFR Calc Vitamin D 25-Hydroxy 90.0 ng/mL [facility] Comment on above: Vitamin D 25(OH) Sta tus Range Deficiency <20 ng/mL (50nmol/L) Insufficiency 20 - 30 ng/mL (50 - 75 nmol/L) Sufficiency 30 - 100 ng/mL (75 - 250 nmol/L) Toxicity >100 ng/mL (>250 nmol/L) Platelets bldOrdered By: Hiro Flores on 12-26-2022 Platelets (Bld) [#/Vol] 371 10*3/uL 150-450 [facility] Protein Test strip Ql (U)Ord ered By: Karthikeyan Flores on 12-26-2022 Protein Ql (U) 15 mg/dl Negative [facility] Serum or plasma albumin tonya urement (mass/volume)Ordered By: Karthikeyan Flores on 12-26-2022 Albumin [Mass/Vol] 3.8 g/dL 3.2-5.0 [facility] Serum or plasma albumin/glob ulin mass ratioOrdered By: Karthikeyan Flores on 12-26-2022 Albumin/Globulin [Mass ratio] 1.0 {ratio} 0.9-2.4 [facility] Serum or plasma calcium tonya urement (mass/volume)Ordered By: Karthikeyan Flores on 12-26-2022 Calcium [Mass/Vol] 9.6 mg/dL 8.5-10.1 [facility] Serum or plasma cholesterol in HDL measurement (mass/volume)Ordered By: Karthikeyan Flores on 12-26-2022 Cholesterol in HDL [Mass/Vol] 89 mg/dL >40 [facility] Comment on above: The drugs N-Acetylcy steine and Metamizole may falsely depress this assay. Reference Range HDL <40 mg/dL Low HDL Cholesterol HDL >or= 60 mg/dL High HDL Cholesterol Serum or plasma cholesterol in VLDL measurement (mass/volume)Ordered By: Karthikeyan Flores on 12-26-2022 Cholesterol in VLDL [Mass/Vol] 13 mg/dL 5-40 [facility] Serum or plasma creatinine m easurement (mass/volume)Ordered By: Karthikeyan Flores on 12-26-2022 Creatinine [Mass/Vol] 0.60 mg/dL 0.55-1.02 [facility] Comment on above: The validity of the calculated GFR & GFRAA in patients over 70 years has not been determined. Clinical correlation is essential. Serum or plasma low density lipoprotein (LDL) cholesterol measurement (mass/volume)Ordered By: Karthikeyan Flores on 12-26-2022 Cholesterol in LDL [Mass/Vol] 113 mg/dL 0-130 [facility] Serum or plasma urea nitroge n measurement (mass/volume)Ordered By: Karthikeyan Flores on 12-26-2022 Urea nitrogen [Mass/Vol] 17 mg/dL 7-18 [facility] Squamous epithelial cells de tection in urine sediment by light microscopyOrdered By: Karthikeyan Flores on 12-26-2022 Epithelial cells.squamous LM Ql (Urine sed) 0-5 SEEN /hpf 5-10 [facility] Thin prep Papanicolaou smear with manual screeningOrdered By: Karthikeyan Flores on 12-26-2022 Thin prep Papanicolaou smear with manual screening 19 U/L 15-37 [facility] Thin prep Papanicolaou smear with manual screening 6 5-15 [facility] Urine blood detectionOrdered By: Karthikeyan Flores on 12-26-2022 RBC Ql (U) 10 /ul Negative [facility] RBC Ql (U) 0-5 SEEN /hpf 0-5 [facility] Urine clarityOrdered By: Hiro Flores on 12-26-2022 Clarity (U) Clear Clear [facility] Urine color determinationOrd ered By: Karthikeyan Flores on 12-26-2022 Color (U) Yellow Yellow [facility] Urine glucose detectionOrder ed By: Karthikeyan Flores on 12-26-2022 Glucose Ql (U) Normal mg/dl Normal [facility] Urine leukocyte esterase det ection by dipstickOrdered By: Karthikeyan Flores on 12-26-2022 Leukocyte esterase Test strip Ql (U) 25 /ul Negative [facility] Urine pHOrdered By: Karthikeyan guerin on 12-26-2022 pH (U) 5.0 [pH] 5.0 - 8.0 [facility] Urine sediment bacteria coun t by microscopy (number/high power field)Ordered By: Karthikeyan Flores on 12-26-2022 Bacteria LM.HPF (Urine sed) [#/Area] 0 /[HPF] None Seen [facility] Urine specific gravity measu rementOrdered By: Karthikeyan Flores on 12-26-2022 Specific gravity (U) [Rel density] 1.025 1.002-1.030 [facility] Urobilinogen Auto test strip Ql (U)Ordered By: Karthikeyan Flores on 12-26-2022 Urobilinogen Ql (U) Normal mg/dl Normal [facility] Whole blood hemoglobin A1c/t otal hemoglobin ratio (mass fraction)Ordered By: Karthikeyan Flores on 12-26-2022 HbA1c (Bld) [Mass fraction] 5.5 % 3.8-5.6 [facility] Comment on above: Normal < 5.7 % Predi abetic 5.7 - 6.4 % Diabetic >or= 6.5 % Please note range changes. Absolute lymphocyte countOrd ered By: Karthikeyan Flores on 10-28-2022 Lymphocytes Auto (Unsp spec) [#/Vol] 1.10 10*3/uL 0.83-4.51 [facility] Basophil percentageOrdered B y: Karthikeyan Flores on 10-28-2022 Basophil percentage 0-5 SEEN /hpf 0-5 [facility] Basophils/100 WBC (Bld) 0.5 % 0-1 [facility] Bilirubin [Mass/Vol] 0.50 mg/dL 0.20-1.00 [facility] Comment on above: For patients on eltr ombopag therapy, use of Dimension [place] TBIL is not recommended. Chloride [Moles/Vol] 105 mmol/L 98-107 [facility] Cholesterol [Mass/Vol] 273 mg/dL <200 [facility] Comment on above: <200 mg/dL Desirable 200-240 mg/dL Borderline >240 mg/dL High Risk Eosinophils/100 WBC (Bld) 3.0 % 0-5 [facility] Glucose [Mass/Vol] 82 mg/dL 74-106 [facility] Neutrophils (Bld) [#/Vol] 5.5 10*3/uL 2.0-7.7 [facility] Neutrophils/100 WBC (Bld) 71.1 % 47-70 [facility] Potassium [Moles/Vol] 3.9 mmol/L 3.5-5.1 [facility] Protein [Mass/Vol] 7.6 g/dL 6.4-8.2 [facility] Sodium [Moles/Vol] 138 mmol/L 136-145 [facility] Triglyceride [Mass/Vol] 182 mg/dL <199 [facility] Comment on above: The drugs N-Acetylcy steine and Metamizole may falsely depress this assay.Serum Triglycerides Reference Interval Normal <150 mg/dL Borderline high 150 - 199 mg/dL High 200 - 499 mg/dL Very High > or = 500 mg/dL WBC (Bld) [#/Vol] 7.7 10*3/uL 4.4-11.0 [facility] Bilirubin Test strip Ql (U)O rdered By: Karthikeyan Flores on 10-28-2022 Bilirubin Ql (U) Negative Negative [facility] Blood erythrocytes count (nu mber/volume)Ordered By: Karthikeyan Flores on 10-28-2022 RBC (Bld) [#/Vol] 4.31 10*6/uL 4.2-5.4 [facility] Blood hemoglobin measurement (mass/volume)Ordered By: Karthikeyan Flores on 10-28-2022 Hemoglobin (Bld) [Mass/Vol] 14.7 g/dL 12.0-15.0 [facility] Blood lymphocytes/100 leukoc ytesOrdered By: Karthikeyan Flores on 10-28-2022 Lymphocytes/100 WBC (Bld) 14.3 % 19-41 [facility] Blood monocytes/100 leukocyt esOrdered By: Karthikeyan Flores on 10-28-2022 Monocytes/100 WBC (Bld) 10.6 % 0-10 [facility] Blood platelet mean volumeOr dered By: Karthikeyan Flores on 10-28-2022 Platelet mean volume (Bld) [Entitic vol] 9.9 fL 6.2-12.0 [facility] Determination of erythrocyte mean corpuscular volume (MCV)Ordered By: Karthikeyan Flores on 10-28-2022 MCV (RBC) [Entitic vol] 103.7 fL 81-99 [facility] Hematocrit Auto (Bld) [Volum e fraction]Ordered By: Karthikeyan Flores on 10-28-2022 Hematocrit (Bld) [Volume fraction] 44.7 % 37-47 [facility] Ketones Test strip Ql (U)Ord ered By: Karthikeyan Flores on 10-28-2022 Ketones Ql (U) 5 mg/dl Negative [facility] Laboratory - Chemistry and C hemistry - challengeOrdered By: Karthikeyan Flores on 10-28-2022 ALP [Catalytic activity/Vol] 76 U/L 45-117 [facility] ALT [Catalytic activity/Vol] 18 U/L 13-56 [facility] CO2 [Moles/Vol] 25.0 mmol/L 21.0-32.0 [facility] Globulin (S) [Mass/Vol] 3.6 g/dL 2.2-4.2 [facility] Urea nitrogen/Creatinine [Mass ratio] 15.5 mg/mg 10-20 [facility] Laboratory - Hematology and Cell countsOrdered By: Karthikeyan Flores on 10-28-2022 Erythrocyte distribution width (RBC) [Entitic vol] 52.6 fL 35.1-43.9 [facility] Erythrocyte distribution width (RBC) [Ratio] 13.7 % 11.6-14.6 [facility] Immature granulocytes/100 WBC (Bld) 0.500 % 0.0-0.9 [facility] Comment on above: IG% - Immature Granu locytes (promyelocytes, myelocytes and metamyelocytes) > 1% indicates that a LEFT SHIFT is Present. MCH (RBC) [Entitic mass] 34.1 pg 27.0-32.0 [facility] Nucleated RBC/100 WBC (Bld) [Ratio] 0 % 0-5 [facility] MCHC Auto (RBC) [Mass/Vol]Or dered By: Karthikeyan Flores on 10-28-2022 MCHC (RBC) [Mass/Vol] 32.9 g/dL 32-36 [facility] Mucus LM Ql (Urine sed)Order ed By: Karthikeyan Flores on 10-28-2022 Mucus Ql (Urine sed) 1+ /hpf [facility] Nitrite Test strip Ql (U)Ord ered By: Karthikeyan Flores on 10-28-2022 Nitrite Ql (U) Negative Negative [facility] No Panel InformationOrdered By: Karthikeyan Flores on 10-28-2022 Estimated GFR (MDRD) Amer 133 mL/min >60 [facility] Comment on above: GFR Calc Estimated GFR (MDRD) Non-Af Amer 110 mL/min >60 [facility] Comment on above: Non- GFR Calc Thyroid Stimulating Hormone (TSH) 1.23 uIU/mL 0.358-3.74 [facility] Vitamin D 25-Hydroxy 85.2 ng/mL [facility] Comment on above: Vitamin D 25(OH) Sta tus Range Deficiency <20 ng/mL (50nmol/L) Insufficiency 20 - 30 ng/mL (50 - 75 nmol/L) Sufficiency 30 - 100 ng/mL (75 - 250 nmol/L) Toxicity >100 ng/mL (>250 nmol/L) Platelets bldOrdered By: Hiro Flores on 10-28-2022 Platelets (Bld) [#/Vol] 335 10*3/uL 150-450 [facility] Protein Test strip Ql (U)Ord ered By: Karthikeyan Flores on 10-28-2022 Protein Ql (U) 15 mg/dl Negative [facility] Serum or plasma albumin tonya urement (mass/volume)Ordered By: Karthikeyan Flores on 10-28-2022 Albumin [Mass/Vol] 4.0 g/dL 3.2-5.0 [facility] Serum or plasma albumin/glob ulin mass ratioOrdered By: Karthikeyan Flores on 10-28-2022 Albumin/Globulin [Mass ratio] 1.1 {ratio} 0.9-2.4 [facility] Serum or plasma calcium tonya urement (mass/volume)Ordered By: Karthikeyan Flores on 10-28-2022 Calcium [Mass/Vol] 9.5 mg/dL 8.5-10.1 [facility] Serum or plasma cholesterol in HDL measurement (mass/volume)Ordered By: Karthikeyan Flores on 10-28-2022 Cholesterol in HDL [Mass/Vol] 85 mg/dL >40 [facility] Comment on above: The drugs N-Acetylcy steine and Metamizole may falsely depress this assay. Reference Range HDL <40 mg/dL Low HDL Cholesterol HDL >or= 60 mg/dL High HDL Cholesterol Serum or plasma cholesterol in VLDL measurement (mass/volume)Ordered By: Karthikeyan Flores on 10-28-2022 Cholesterol in VLDL [Mass/Vol] 36 mg/dL 5-40 [facility] Serum or plasma creatinine m easurement (mass/volume)Ordered By: Karthikeyan Flores on 10-28-2022 Creatinine [Mass/Vol] 0.58 mg/dL 0.55-1.02 [facility] Comment on above: The validity of the calculated GFR & GFRAA in patients over 70 years has not been determined. Clinical correlation is essential. Serum or plasma low density lipoprotein (LDL) cholesterol measurement (mass/volume)Ordered By: Karthikeyan Flores on 10-28-2022 Cholesterol in LDL [Mass/Vol] 152 mg/dL 0-130 [facility] Serum or plasma urea nitroge n measurement (mass/volume)Ordered By: Karthikeyan Flores on 10-28-2022 Urea nitrogen [Mass/Vol] 9 mg/dL 7-18 [facility] Squamous epithelial cells de tection in urine sediment by light microscopyOrdered By: Karthikeyan Flores on 10-28-2022 Epithelial cells.squamous LM Ql (Urine sed) 5-10 SEEN /hpf 5-10 [facility] Thin prep Papanicolaou smear with manual screeningOrdered By: Karthikeyan Flores on 10-28-2022 Thin prep Papanicolaou smear with manual screening 13 U/L 15-37 [facility] Thin prep Papanicolaou smear with manual screening 8 5-15 [facility] Urine blood detectionOrdered By: Karthikeyan Flores on 10-28-2022 RBC Ql (U) Negative Negative [facility] RBC Ql (U) 0 SEEN /hpf 0-5 [facility] Urine clarityOrdered By: Hiro Flores on 10-28-2022 Clarity (U) Sl. Cloudy Clear [facility] Urine color determinationOrd ered By: Karthikeyan Flores on 10-28-2022 Color (U) Yellow Yellow [facility] Urine glucose detectionOrder ed By: Karthikeyan Flores on 10-28-2022 Glucose Ql (U) Normal mg/dl Normal [facility] Urine leukocyte esterase det ection by dipstickOrdered By: Karthikeyan Flores on 10-28-2022 Leukocyte esterase Test strip Ql (U) 25 /ul Negative [facility] Urine pHOrdered By: Karthikeyan guerin on 10-28-2022 pH (U) 6.0 [pH] 5.0 - 8.0 [facility] Urine sediment bacteria coun t by microscopy (number/high power field)Ordered By: Karthikeyan Flores on 10-28-2022 Bacteria LM.HPF (Urine sed) [#/Area] 1 /[HPF] None Seen [facility] Urine specific gravity measu rementOrdered By: Karthikeyan Flores on 10-28-2022 Specific gravity (U) [Rel density] 1.015 1.002-1.030 [facility] Urobilinogen Auto test strip Ql (U)Ordered By: Karthikeyan Flores on 10-28-2022 Urobilinogen Ql (U) 1 mg/dl Normal [facility] Whole blood hemoglobin A1c/t otal hemoglobin ratio (mass fraction)Ordered By: Karthikeyan Flores on 10-28-2022 HbA1c (Bld) [Mass fraction] 5.6 % 3.8-5.6 [facility] Comment on above: Normal < 5.7 % Predi abetic 5.7 - 6.4 % Diabetic >or= 6.5 % Please note range changes. Absolute lymphocyte counton 01-10-2022 Lymphocytes Auto (Unsp spec) [#/Vol] 1.20 10*3/uL 0.83-4.51 [facility] Work Phone: Basophil percentageon 2021 Basophil percentage 5-10 SEEN /hpf 0-5 [facility] Work Phone: Basophils/100 WBC (Bld) 1.1 % 0-1 [facility] Work Phone: Bilirubin [Mass/Vol] 0.50 mg/dL 0.20-1.00 [facility] Work Phone: Comment on above: For patients on eltr ombopag therapy, use of Dimension [place] TBIL is not recommended. Chloride [Moles/Vol] 106 mmol/L 98-107 [facility] Work Phone: Cholesterol [Mass/Vol] 230 mg/dL <200 [facility] Work Phone: Comment on above: <200 mg/dL Desirable 200-240 mg/dL Borderline >240 mg/dL High Risk Eosinophils/100 WBC (Bld) 3.9 % 0-5 [facility] Work Phone: Glucose [Mass/Vol] 104 mg/dL 74-106 [facility] Work Phone: Comment on above: Fasting Glucose resu lt from 100 to 125 mg/dL suggests IMPAIRED HOMEOSTASIS per A.D.A. criteria. Neutrophils (Bld) [#/Vol] 3.5 10*3/uL 2.0-7.7 [facility] Work Phone: Neutrophils/100 WBC (Bld) 62.5 % 47-70 [facility] Work Phone: Potassium [Moles/Vol] 4.3 mmol/L 3.5-5.1 [facility] Work Phone: Protein [Mass/Vol] 6.8 g/dL 6.4-8.2 [facility] Work Phone: Sodium [Moles/Vol] 139 mmol/L 136-145 [facility] Work Phone: Triglyceride [Mass/Vol] 96 mg/dL <199 [facility] Work Phone: Comment on above: The drugs N-Acetylcy steine and Metamizole may falsely depress this assay.Serum Triglycerides Reference Interval Normal <150 mg/dL Borderline high 150 - 199 mg/dL High 200 - 499 mg/dL Very High > or = 500 mg/dL WBC (Bld) [#/Vol] 5.7 10*3/uL 4.4-11.0 [facility] Work Phone: Bilirubin Test strip Ql (U)o n 01-10-2022 Bilirubin Ql (U) Negative Negative [facility] Work Phone: Blood erythrocytes count (nu mber/volume)on 01-10-2022 RBC (Bld) [#/Vol] 4.04 10*6/uL 4.2-5.4 [facility] Work Phone: Blood hemoglobin measurement (mass/volume)on 01-10-2022 Hemoglobin (Bld) [Mass/Vol] 13.8 g/dL 12.0-15.0 [facility] Work Phone: Blood lymphocytes/100 leukoc yteson 01-10-2022 Lymphocytes/100 WBC (Bld) 21.2 % 19-41 [facility] Work Phone: Blood monocytes/100 leukocyt eson 01-10-2022 Monocytes/100 WBC (Bld) 11.1 % 0-10 [facility] Work Phone: Blood platelet mean volumeon 01-10-2022 Platelet mean volume (Bld) [Entitic vol] 9.8 fL 6.2-12.0 [facility] Work Phone: Determination of erythrocyte mean corpuscular volume (MCV)on 01-10-2022 MCV (RBC) [Entitic vol] 101.7 fL 81-99 [facility] Work Phone: Hematocrit Auto (Bld) [Volum e fraction]on 01-10-2022 Hematocrit (Bld) [Volume fraction] 41.1 % 37-47 [facility] Work Phone: Ketones Test strip Ql (U)on 01-10-2022 Ketones Ql (U) Negative Negative [facility] Work Phone: Laboratory - Chemistry and C hemistry - challengeon 01-10-2022 ALP [Catalytic activity/Vol] 72 U/L 45-117 [facility] Work Phone: ALT [Catalytic activity/Vol] 17 U/L 13-56 [facility] Work Phone: CO2 [Moles/Vol] 26.0 mmol/L 21.0-32.0 [facility] Work Phone: Globulin (S) [Mass/Vol] 3.2 g/dL 2.2-4.2 [facility] Work Phone: Urea nitrogen/Creatinine [Mass ratio] 20.1 mg/mg 10-20 [facility] Work Phone: Laboratory - Hematology and Cell countson 01-10-2022 Erythrocyte distribution width (RBC) [Entitic vol] 50.4 fL 35.1-43.9 [facility] Work Phone: Erythrocyte distribution width (RBC) [Ratio] 13.4 % 11.6-14.6 [facility] Work Phone: Immature granulocytes/100 WBC (Bld) 0.200 % 0.0-0.9 [facility] Work Phone: Comment on above: IG% - Immature Granu locytes (promyelocytes, myelocytes and metamyelocytes) > 1% indicates that a LEFT SHIFT is Present. MCH (RBC) [Entitic mass] 34.2 pg 27.0-32.0 [facility] Work Phone: Nucleated RBC/100 WBC (Bld) [Ratio] 0 % 0-5 [facility] Work Phone: MCHC Auto (RBC) [Mass/Vol]on 01-10-2022 MCHC (RBC) [Mass/Vol] 33.6 g/dL 32-36 [facility] Work Phone: Mucus LM Ql (Urine sed)on Mucus Ql (Urine sed) 1+ /hpf [facility] Work Phone: Nitrite Test strip Ql (U)on 01-10-2022 Nitrite Ql (U) Negative Negative [facility] Work Phone: No Panel Informationon 01-10 Estimated GFR (MDRD) Amer 142 mL/min >60 [facility] Work Phone: Comment on above: GFR Calc Estimated GFR (MDRD) Non-Af Amer 117 mL/min >60 [facility] Work Phone: Comment on above: Non- GFR Calc Vitamin D 25-Hydroxy 29.4 ng/mL [facility] Work Phone: Comment on above: Vitamin D 25(OH) Sta tus Range Deficiency <20 ng/mL (50nmol/L) Insufficiency 20 - 30 ng/mL (50 - 75 nmol/L) Sufficiency 30 - 100 ng/mL (75 - 250 nmol/L) Toxicity >100 ng/mL (>250 nmol/L) Platelets bldon 01-10-2022 Platelets (Bld) [#/Vol] 317 10*3/uL 150-450 [facility] Work Phone: Protein Test strip Ql (U)on 01-10-2022 Protein Ql (U) Negative Negative [facility] Work Phone: Serum or plasma albumin tonya urement (mass/volume)on 01-10-2022 Albumin [Mass/Vol] 3.6 g/dL 3.2-5.0 [facility] Work Phone: Serum or plasma albumin/glob ulin mass ratioon 01-10-2022 Albumin/Globulin [Mass ratio] 1.1 {ratio} 0.9-2.4 [facility] Work Phone: Serum or plasma calcium tonya urement (mass/volume)on 01-10-2022 Calcium [Mass/Vol] 9.1 mg/dL 8.5-10.1 [facility] Work Phone: Serum or plasma cholesterol in HDL measurement (mass/volume)on 01-10-2022 Cholesterol in HDL [Mass/Vol] 86 mg/dL >40 [facility] Work Phone: Comment on above: The drugs N-Acetylcy steine and Metamizole may falsely depress this assay. Reference Range HDL <40 mg/dL Low HDL Cholesterol HDL >or= 60 mg/dL High HDL Cholesterol Serum or plasma cholesterol in VLDL measurement (mass/volume)on 01-10-2022 Cholesterol in VLDL [Mass/Vol] 19 mg/dL 5-40 [facility] Work Phone: Serum or plasma creatinine m easurement (mass/volume)on 01-10-2022 Creatinine [Mass/Vol] 0.55 mg/dL 0.55-1.02 [facility] Work Phone: Comment on above: The validity of the calculated GFR & GFRAA in patients over 70 years has not been determined. Clinical correlation is essential. Serum or plasma low density lipoprotein (LDL) cholesterol measurement (mass/volume)on 01-10-2022 Cholesterol in LDL [Mass/Vol] 125 mg/dL 0-130 [facility] Work Phone: Serum or plasma urea nitroge n measurement (mass/volume)on 01-10-2022 Urea nitrogen [Mass/Vol] 11 mg/dL 7-18 [facility] Work Phone: Squamous epithelial cells de tection in urine sediment by light microscopyon 01-10-2022 Epithelial cells.squamous LM Ql (Urine sed) 0-5 SEEN /hpf 5-10 [facility] Work Phone: Thin prep Papanicolaou smear with manual screeningon 01-10-2022 Thin prep Papanicolaou smear with manual screening 14 U/L 15-37 [facility] Work Phone: Thin prep Papanicolaou smear with manual screening 7 5-15 [facility] Work Phone: Urine blood detectionon 12-31 RBC Ql (U) Negative Negative [facility] Work Phone: RBC Ql (U) 0 SEEN /hpf 0-5 [facility] Work Phone: Urine clarityon 01-10-2022 Clarity (U) Clear Clear [facility] Work Phone: Urine color determinationon 01-10-2022 Color (U) Yellow Yellow [facility] Work Phone: Urine glucose detectionon Glucose Ql (U) Normal mg/dl Normal [facility] Work Phone: Urine leukocyte esterase det ection by dipstickon 01-10-2022 Leukocyte esterase Test strip Ql (U) 500 /ul Negative [facility] Work Phone: Urine pHon 01-10-2022 pH (U) 5.0 [pH] 5.0 - 8.0 [facility] Work Phone: Urine sediment bacteria coun t by microscopy (number/high power field)on 01-10-2022 Bacteria LM.HPF (Urine sed) [#/Area] 2 /[HPF] None Seen [facility] Work Phone: Urine specific gravity measu rementon 01-10-2022 Specific gravity (U) [Rel density] 1.015 1.002-1.030 [facility] Work Phone: Urobilinogen Auto test strip Ql (U)on 01-10-2022 Urobilinogen Ql (U) Normal mg/dl Normal [facility] Work Phone: Whole blood hemoglobin A1c/t otal hemoglobin ratio (mass fraction)on 01-10-2022 HbA1c (Bld) [Mass fraction] 5.7 % 3.8-5.6 [facility] Work Phone: Comment on above: Normal < 5.7 % Predi abetic 5.7 - 6.4 % Diabetic >or= 6.5 % Please note range changes. Vital Signs Date Time Vital Sign Value Performing Clinician Facility 12-02-2024 09:52-0400 Diastolic blood pressure 74 mm[Hg] Brett Gar MD [facility] 12-02-2024 09:52-0400 Systolic blood pressure 146 mm[Hg] Brett Gar MD [facility] 09-28-2024 09:12-0400 Diastolic blood pressure 72 mm[Hg] Brett Gar MD [facility] 09-28-2024 09:12-0400 Systolic blood pressure 154 mm[Hg] Brett Gar MD [facility] 09-22-2024 11:09-0400 Body height 147.[address] Karthikeyan Flores MD Work Phone: [facility] 09-22-2024 11:09-0400 Body mass index (BMI) [Ratio] 23.7 kg/m2 Dr. Karthikeyan Flores MD Work Phone: [facility] 09-22-2024 11:09-0400 Body temperature 97.9 [degF] Dr. Karthikeyan Flores MD Work Phone: [facility] 09-22-2024 11:09-0400 Body weight 51.[address] Karthikeyan Flores MD Work Phone: [facility] 09-22-2024 11:09-0400 Diastolic blood pressure 76 mm[Hg] Dr. Karthikeyan Flores MD Work Phone: [phone])[phone] [address] 09-22-2024 11:09-0400 Heart rate 57 /min Dr. Karthikeyan Flores MD Work Phone: 4([phone])[phone] [address] 09-22-2024 11:09-0400 Respiratory rate 18 /min Dr. Karthikeyan Flores MD Work Phone: [phone] [place] [address] 09-22-2024 11:09-0400 SaO2% (BldA) [Mass fraction] 95 % Dr. Karthikeyan Flores MD Work Phone: [facility] 09-22-2024 11:09-0400 Systolic blood pressure 178 mm[Hg] Dr. Karthikeyan Flores MD Work Phone: [facility] 08-31-2024 10:44-0400 Diastolic blood pressure 75 mm[Hg] Brett Gar MD [facility] 08-31-2024 10:44-0400 Systolic blood pressure 154 mm[Hg] Brett Gar MD [facility] 08-25-2024 08:54-0400 Body height 147.[address] Karthikeyan Flores MD Work Phone: [facility] 08-25-2024 08:54-0400 Body mass index (BMI) [Ratio] 23.8 kg/m2 Dr. Karthikeyan Flores MD Work Phone: [facility] 08-25-2024 08:54-0400 Body temperature 96.7 [degF] Dr. Karthikeyan Flores MD Work Phone: [facility] 08-25-2024 08:54-0400 Body weight 51.[address] Karthikeyan Flores MD Work Phone: [facility] 08-25-2024 08:54-0400 Diastolic blood pressure 80 mm[Hg] Dr. Karthikeyan Flores MD Work Phone: [phone] [place] [address] 08-25-2024 08:54-0400 Heart rate 66 /min Dr. Karthikeyan Flores MD Work Phone: [facility] 08-25-2024 08:54-0400 Respiratory rate 15 /min Dr. Karthikeyan Flores MD Work Phone: [phone] [place] [address] 08-25-2024 08:54-0400 SaO2% (BldA) [Mass fraction] 98 % Dr. Karthikeyan Flores MD Work Phone: [phone] [place] [address] 08-25-2024 08:54-0400 Systolic blood pressure 149 mm[Hg] Dr. Karthikeyan Flores MD Work Phone: [phone] [place] [address] 08-17-2024 14:51-0400 Body height 147.[address] Karthikeyan Flores MD Work Phone: [facility] 08-17-2024 14:51-0400 Body mass index (BMI) [Ratio] 23.6 kg/m2 Dr. Karthikeyan Flores MD Work Phone: [facility] 08-17-2024 14:51-0400 Body temperature 98.6 [degF] Dr. Karthikeyan Flores MD Work Phone: [facility] 08-17-2024 14:51-0400 Body weight 51.[address] Karthikeyan Flores MD Work Phone: [facility] 08-17-2024 14:51-0400 Diastolic blood pressure 81 mm[Hg] Dr. Karthikeyan Flores MD Work Phone: [facility] 08-17-2024 14:51-0400 Heart rate 61 /min Dr. Karthikeyan Flores MD Work Phone: [facility] 08-17-2024 14:51-0400 Respiratory rate 18 /min Dr. Karthikeyan Flores MD Work Phone: [facility] 08-17-2024 14:51-0400 SaO2% (BldA) [Mass fraction] 98 % Dr. Karthikeyan Flores MD Work Phone: [facility] 08-17-2024 14:51-0400 Systolic blood pressure 135 mm[Hg] Dr. Karthikeyan Flores MD Work Phone: [facility] Encounters Encounter Date Encounter Type Care Provider Facility Start: 12-02-2024 End: 12-02-2024 Office outpatient visit 25 minutes Brett Gar Work Phone: [facility] Start: 12-02-2024 ambulatory Brett Gar [facility] Start: 09-28-2024 End: 09-28-2024 Office outpatient visit 25 minutes Brett Gar Work Phone: [facility] Start: 09-28-2024 ambulatory Brett Gar [facility] Start: 09-22-2024 End: 09-22-[address] Zachery Snider MD -[facility] Work Phone: Start: 09-22-2024 End: 09-22-[address] Karthikeyan Flores MD Work Phone: -[facility] Start: 09-08-2024 ambulatory Zachery Snider Facility:[facility] Start: 09-08-[address] Zachery Snider MD -[facility] Start: 09-06-2024 End: 09-06-[address] Karthikeyan Flores MD Work Phone: -[facility] Start: 09-06-2024 End: 09-06-[address] Karthikeyan Flores MD -[facility] Work Phone: Start: 09-06-2024 End: 09-06-2024 ambulatory Karthikeyan Flores Facility:[facility] Start: 08-31-2024 End: 08-31-2024 Office outpatient visit 25 minutes Brett Gar Work Phone: [facility] Start: 08-31-2024 ambulatory Brett Gar [employer] Start: 08-25-2024 End: 08-25-[address] Zachery Snider MD -[facility] Work Phone: Start: 08-25-2024 End: 08-25-[address] Karthikeyan Flores MD Work Phone: [facility] Work Phone: Start: 08-17-[address] Zachery Snider MD -[facility] Start: 08-17-2024 End: 08-17-[address] Zachery Snider MD -[facility] Work Phone: Start: 08-17-2024 End: 08-17-[address] Karthikeyan Flores MD Work Phone: [facility] Work Phone: Start: 05-30-2024 Non-patient / Non-visit Radha Hood -[facility] Work Phone: Start: 05-30-2024 ambulatory Karthikeyan Flores Facilit y:[facility] Start: 05-27-2024 End: 05-27-[address] Karthikeyan Flores MD Work Phone: [facility] Work Phone: Start: 05-27-2024 End: 05-27-[address] Karthikeyan Flores MD -[facility] Start: 05-27-2024 End: 05-27-2024 ambulatory Karthikeyan Flores Facility:[facility] Start: 01-06-2024 End: 01-06-2024 ambulatory Karthikeyan Flores Facility:[facility] Start: 12-21-2023 End: 12-21-2023 ambulatory Karthikeyan Flores Facility:[facility] Start: 03-18-2023 End: 03-18-2023 Encounter identifier Brett Gar Work Phone: [facility] Start: 01-21-2023 End: 01-21-2023 Office outpatient visit 15 minutes Brett Gar Work Phone: [facility] Start: 12-26-2022 End: 12-26-[address] Karthikeyan Flores Work Phone: [facility] Work Phone: Start: 12-26-2022 End: 12-26-[address] Karthikeyan Flores Work Phone: [facility] Start: 12-24-2022 End: 12-24-2022 Office outpatient visit 25 minutes Brett Gar Work Phone: [facility] Start: 10-31-2022 End: 10-31-2022 Office outpatient visit 15 minutes Brett Gar Work Phone: [facility] Start: 10-28-2022 End: 10-28-[address] Karthikeyan Flores Work Phone: [facility] Work Phone: Start: 10-28-2022 End: 10-28-[address] Karthikeyan Flores Work Phone: [facility] Start: 10-17-2022 End: 10-17-2022 Office outpatient visit 25 minutes Brett Gar Work Phone: [facility] Start: 10-06-2022 Non-patient / Non-visit Dr. Kelsey Flores Work Phone: [facility] Start: 10-03-2022 End: 10-03-[address] Karthikeyan Flores Work Phone: [facility] Work Phone: Start: 10-03-2022 End: 10-03-[address] Karthikeyan Flores Work Phone: [facility]-Cat Scan, [facility] Work Phone: Start: 09-08-2022 End: 09-08-2022 ambulatory [facility] Work Phone: Start: 09-08-2022 End: 09-08-2022 Patient encounter procedure [facility]-Radiology, [place] Work Phone: Start: 09-03-2022 End: 09-03-2022 Office outpatient visit 15 minutes Brett Gar Work Phone: [facility] Start: 08-08-2022 End: 08-08-2022 Office outpatient visit 25 minutes Brett Gar Work Phone: [facility] Start: 03-28-2022 End: 03-28-2022 Office outpatient visit 25 minutes Brett Gar Work Phone: [facility] Start: 01-31-2022 End: 01-31-2022 Office outpatient visit 15 minutes Brett Gar Work Phone: [facility] Start: 01-10-2022 End: 01-10-2022 ambulatory [facility] Work Phone: Start: 01-10-2022 End: 01-10-2022 Patient encounter procedure [facility]Laboratory[facility] Start: 01-03-2022 End: 01-03-2022 Office outpatient visit 25 minutes Brett Gar Work Phone: [facility] Start: 11-01-2021 End: 11-01-2021 Encounter identifier Brett Gar Work Phone: [facility] Start: 10-02-2021 End: 10-02-2021 Office outpatient new 45 minutes Brett Gar Work Phone: [facility] Procedures Date Procedure Procedure Detail Performing Clinician Start: 12-02-2024 End: 12-02-2024 Computerized ophthalmic imaging retina Brett Gar Start: 09-28-2024 End: 09-28-2024 Computerized ophthalmic imaging retina Brett Gar MD Start: 09-06-2024 Screening mammography Shira Flores MD Work Phone: Start: 08-31-2024 End: 08-31-2024 Computerized ophthalmic imaging retina Brett Gar MD Start: 08-31-2024 End: 08-31-2024 Dexamethasone intra implant Brett michaud MD Start: 08-31-2024 End: 08-31-2024 Intravitreal njx pharmacologic agt spx Brett Gar MD Start: 08-17-2024 D-dimer assay, quantitative Dr. Karthikeyan Flores MD Work Phone: Comment on above: NORMAL D-Dimer level (<0.50) indicates no DVT or PE. Start: 05-27-2024 Urnls dip stick/tabl et reagent auto microscopy Dr. Karthikeyan Flores MD Work Phone: Start: 05-27-2024 Vitamin D, 25-hydrox y measurement Dr. Karthikeyan Flores MD Work Phone: Comment on above: Vitamin D StatusDefi ciency: <20 ng/mL (50nmol/L)Insufficiency: 20-30 ng/mL (50-75 nmol/L)Sufficiency: 30-100 ng/mL (75-250 nmol/L)Toxicity: >100 ng/mL (>250 nmol/L) Start: 03-18-2023 End: 03-18-2023 Computerized ophthalmic imaging retina Brett Gar MD Start: 01-21-2023 End: 01-21-2023 Computerized ophthalmic imaging retina Brett Gar MD Start: 12-24-2022 End: 12-24-2022 Computerized ophthalmic imaging retina Brett Gar MD Start: 10-31-2022 End: 10-31-2022 Computerized ophthalmic imaging retina Brett Gar MD Start: 10-17-2022 End: 10-17-2022 Computerized ophthalmic imaging retina Brett Gar MD Start: 10-17-2022 End: 10-17-2022 Intravitreal njx pharmacologic agt spx Brett Gar MD Start: 10-17-2022 End: 10-17-2022 Ozurdex 0.1mg Sample Drug Brett donovan MD Start: 10-03-[address] Karthikeyan bahena Work Phone: Start: 09-08-2022 Plain chest X-ray Start: 09-03-2022 End: 09-03-2022 Computerized ophthalmic imaging retina Brett Gar MD Start: 08-08-2022 End: 08-08-2022 Computerized ophthalmic imaging retina Brett Gar MD Start: 08-08-2022 End: 08-08-2022 Injection medication/other subst tenon capsule Brett Gar MD Start: 08-08-2022 End: 08-08-2022 Triamcinolone acet inj NOS Single Uses Vial 10MG Brett Gar MD Start: 03-28-2022 End: 03-28-2022 Computerized ophthalmic imaging retina Brett Gar MD Start: 03-28-2022 End: 03-28-2022 Injection medication/other subst tenon capsule Brett Gar MD Start: 03-28-2022 End: 03-28-2022 Triamcinolone acet inj NOS Single Uses Vial 10MG Brett Gar MD Start: 01-31-2022 End: 01-31-2022 Computerized ophthalmic imaging retina Brett Gar MD Start: 01-03-2022 End: 01-03-2022 Computerized ophthalmic imaging retina Brett Gar MD Start: 11-01-2021 End: 11-01-2021 Computerized ophthalmic imaging retina Brett Gar MD Start: 10-02-2021 End: 10-02-2021 Fluorescein angrph w/multiframe i&r uni/bi Brett Gar MD Start: 10-02-2021 End: 10-02-2021 Injection medication/other subst tenon capsule Brett Gar MD Start: 10-02-2021 End: 10-02-2021 Triamcinolone acet inj NOS Single Uses Vial 10MG Brett Gar MD Plan of Treatment Date Care Activity Detail Author Start: 02-03-2025 Samanta Ballard/ 2 Mo FU OCT [facility] Work Phone: Start: 12-02-2024 Samanta Ballard 2 MO FU OCT [facility] Work Phone: Start: 09-28-2024 Samanta Ballard - 4 Wks FU OCT [facility] Work Phone: Activated protein C resistance [Time Ratio] in Platelet poor plasma by Coagulation assay [facility] Antithrombin III ass ay, functional [facility] Beta 2 glycoprotein 1 IgA Ab [Presence] in Serum [facility] Beta 2 glycoprotein 1 IgG Ab [Presence] in Serum [facility] Beta 2 glycoprotein 1 IgM Ab [Presence] in Serum [facility] Cardiolipin IgG Ab [Units/volume] in Serum or Plasma [facility] Cardiolipin IgM Ab [Units/volume] in Serum or Plasma [facility] D-dimer assay, quantitative [facility] dRVVT (LA screen) [facility] F2 gene mutations fo und [Identifier] in Blood or Tissue by Molecular genetics method Nominal [facility] F5 gene mutations fo und [Identifier] in Blood or Tissue by Molecular genetics method Nominal [facility] Homocysteine [Moles/ volume] in Serum or Plasma [facility] Lupus anticoagulant assay, platelet neutralization method [facility] Lupus anticoagulant screening test [facility] Plasma plasminogen activity [facility] Protein C [Units/vol ume] in Platelet poor plasma by Coagulation assay [facility] Protein S Free Ag actual/normal in Platelet poor plasma by Immunoassay [facility] Prothrombin time [facility] Payers Date Payer Category Payer Self-pay [id number] 2020 Unknown [id number] 2018 Medicare [id number] 1955 Unknown [id number] 2.16.84 [id number] 1955 Unknown [id number] 2.16.84 [id number] 1955 Unknown [id number] 2.16.84 [id number] Unknown [id number] 2.16.8 [id number] Unknown [id number] 2.16.8 [id number] Unknown [id number] 2.16.8 [id number] Unknown [id number] 2.16.8 [id number] Unknown [id number] 2.16.8 [id number] Unknown [id number] 2.16.8 [id number] Unknown [id number] 2.16.8 [id number] Unknown [id number] 2.16.8 [id number] Unknown [id number] 2.16.8 [id number] Social History Date Type Detail Facility Start: 08-29-2014 End: 08-29-2014 Tobacco smoking status MTIS Unknown if ever smoked [facility] Start: 1955 Sex Assigned At Female [facility] Start: 05-30-2024 End: 08-17-2024 Tobacco smoking status MTIS Smokes tobacco daily (finding) [facility] Start: 06-02-2024 Sex Female (finding) [facility] Start: 08-31-2024 Alcohol intake Alcohol Use Details [facility] Start: 08-31-2024 Tobacco use and exposure Non-Smoking Tobacco Use Details [facility] Start: 02-09-2019 Sexual Orientation Lesbian, ga y or homosexual [facility] Start: 01-16-2022 Sexual Orientation Straight or heterosexual [facility] NEGATED: Highlighted rowStart: 08-31-2024 End: 12-02-2024 Tobacco smoking status NHIS Unknown if ever smoked [facility] NEGATED: Highlighted rowStart: 08-31-2024 History of tobacco use Current non-smoker [facility] NEGATED: Highlighted row Alcohol intake Alcohol Use Details [facility] NEGATED: Highlighted rowStart: 09-28-2024 Health-related Behavior Caffeine Use Details [facility] Clinical Notes 10-06-2022 to 12-02-2024 Note Date & Type Note Facility 12-02-2024 Evaluation note Type assessment Posterior cyclitis, right eye Oc impression Posterior cyclitis, 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 Bilateral. Condition: serious, chronic, decreased OD; stable resolved OS. Status post STK x3 OD, last 08-08-2022, s/p Ozurdex 10/17/22 assessment Vitreous degeneration, bilateral impression Vitreous degeneratio n, bilateral: H43.813. Bilateral. Condition: chronic. PVD OU assessment Presence of pseudophakia 2024 impression Presence of pseudoph amanda: Z96.1. Bilateral. Condition: established, stable since ~spring 2020 assessment Essential (primary) hypertension impression Essential (primary) hypertension: I10. Bilateral. Condition: chronic [facility] Work Phone: [phone] History of Present illness Narrative* Encounter Date Complaint History Of Prese nt Illness cystoid macular lenora a following cataract chris The 69 year old patient presents for evaluation of cystoid macular edema following cataract surgery in the right and left eyes. Patient states stable vision OU since last visit. New floaters OD started yesterday. Denies pain/discomfort OU. Patient refused to be dilated in OS due to driving. cystoid macular lenora a following cataract chris The 69 year old patient presents for evaluation of cystoid macular edema following cataract surgery in the right and left eyes. Patient states stable vision OU since last visit. No new flashes/floaters OU. Denies pain/discomfort OU. Patient refused to be dilated in OS. CME The 69 year old female presents for evaluation of CME in the right eye. Patient reports decreased vision OD that started about 1 year ago following her last treatment. She reports her vision OD as blurry and distorted. She denies vision changes OS since last visit. She reports occasional floaters, pressure feeling, and light sensitivity OD only. She denies flashes of light OU. Patient reports having a blood clot last fall and was taking Eliquis until about 1.5 weeks ago. CME OU The 68 year old patient presents for follow up of CME OU. Possible Ozurdex today. Pt states vision has not improved at all. She states she uses Dorzolamide PRN as she feels she needs. She stopped using Pred. She refuses OS dilation today. Cystoid macular edema BI The 67 year old patient presents for evaluation of Cystoid macular edema BI following cataract surgery. 2-3 week FU. Bad stabbing pain 2 weeks ago 01/09/23 OD vision blurry and worse. Occasional floater OD, patient denies flashes. No pain or discomfort today. cystoid macular edema The 67 yea r old patient presents for evaluation of cystoid macular edema following cataract surgery in the right and left eyes. VA same as last visit. Denies flashes / new floaters. IOP OD 34, pt c/o ocular pain. Dorzolamide given in office OD only at 1:18 p.m. per DBS d/t elevated IOP. CME The 67 year old female presents for evaluation of CME in the right and left eyes. VA maybe slightly improved OU. OD appears red/yellow and pt states it was dripping blood right after getting last injection, happened that whole day. Denies flashes / new floaters. Denies pain / discomfort. S/P Kenalog, last taken 07/2022. CME OU The 67 year old female presents for evaluation of CME OU. S/P Kenalog OD x 3, last 07/2022. Pt states va OD has decreased since last exam. Onset is gradual since her last visit here. She seen Dr. Vela on Thursday and said pt had a pocket of fluid sup/temp. Did not treat at that time. Denies pain. Says eyes are real itchy and still feels like she has pressure in OD. She wants to know if she is having an allergic reaction to Timolol. Dr. Vela wants to know if pt can get glasses Rx for driving. cystoid macular edema The 67 yea r old female presents for evaluation of cystoid macular edema in the right and left eyes. Pt reports no changes in VA since last exam. 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 VA stable OU. Denies pain / discomfort. Denies flashes / new floaters. H/O Kenalog on 03.28.2022 in right eye. Pt states Dr. Adams will not see her again until the fluid in eyes are gone and released from A care. Pt taking Prednisolone in OD only, every 2 hours. Cystoid macular edema The 67 yea r old female presents for evaluation of Cystoid macular edema in the right eye and left eye following cataract surgery. Pt stopped using Pred and Ketorolac ~3 weeks ago. She had Yag Cap OD ~ [address] Adams. Pt states OD vision is still poor. 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 Vision is stable. Denies pain / discomfort. Denies flashes / floaters. Pt still taking eye drops as directed. 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 Vision is stable with cloudiness. No pain/discomfort. Pt did fall last , that resulted in a black eye and concussion. Pt wants to know if shes okay today, if a message could be sent to Dr. Adams. no change in vision The patient reports no change in vision in the right and left eye since her last exam 4 weeks ago. She is still taking the Ketorolac eye drop. If she is to continue the Ketorolac she will need refills. She last instilled the eye drop this morning. She has not noticed any thing such as floaters or flashes of light. There has been no eye pain or redness. 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 cystoid macula edema The 66 year old female presents for evaluation of cystoid macula edema in the right eye greater then left eye not responding to prednisolone. haloing The patient pres ents with haloing in the right and left eye since her cataract surgery. She has noticed bright lights are still very bothersome to the patient. She was on eye drops after cataract surgery that did help. Dr. Santana then tapered patient off her eye drops. She is now taking the white cap drops QID in the OD. She did not bring them with her today. She can not drive at night due to glare. She has floaters but has not noticed any changes in size shape or frequency. She has not had any flashes of light in either eye. She has not noticed any eye pain or redness of the eyes. 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 Bilateral. Condition: serious, chronic, decreased OD; stable resolved OS. Status post STK x3 OD, last 08-08-2022, s/p Ozurdex 10/17/22 [facility] Work Phone: [phone] History of Present illness Narrative* Encounter Date Complaint History Of Prese nt Illness cystoid macular lenora a following cataract chris The 69 year old patient presents for evaluation of cystoid macular edema following cataract surgery in the right and left eyes. Patient states stable vision OU since last visit. No new flashes/floaters OU. Denies pain/discomfort OU. Patient refused to be dilated in OS. CME The 69 year old female presents for evaluation of CME in the right eye. Patient reports decreased vision OD that started about 1 year ago following her last treatment. She reports her vision OD as blurry and distorted. She denies vision changes OS since last visit. She reports occasional floaters, pressure feeling, and light sensitivity OD only. She denies flashes of light OU. Patient reports having a blood clot last fall and was taking Eliquis until about 1.5 weeks ago. CME OU The 68 year old patient presents for follow up of CME OU. Possible Ozurdex today. Pt states vision has not improved at all. She states she uses Dorzolamide PRN as she feels she needs. She stopped using Pred. She refuses OS dilation today. Cystoid macular edema BI The 67 year old patient presents for evaluation of Cystoid macular edema BI following cataract surgery. 2-3 week FU. Bad stabbing pain 2 weeks ago 01/09/23 OD vision blurry and worse. Occasional floater OD, patient denies flashes. No pain or discomfort today. cystoid macular edema The 67 yea r old patient presents for evaluation of cystoid macular edema following cataract surgery in the right and left eyes. VA same as last visit. Denies flashes / new floaters. IOP OD 34, pt c/o ocular pain. Dorzolamide given in office OD only at 1:18 p.m. per DBS d/t elevated IOP. CME The 67 year old female presents for evaluation of CME in the right and left eyes. VA maybe slightly improved OU. OD appears red/yellow and pt states it was dripping blood right after getting last injection, happened that whole day. Denies flashes / new floaters. Denies pain / discomfort. S/P Kenalog, last taken 07/2022. CME OU The 67 year old female presents for evaluation of CME OU. S/P Kenalog OD x 3, last 07/2022. Pt states va OD has decreased since last exam. Onset is gradual since her last visit here. She seen Dr. Vela on Thursday and said pt had a pocket of fluid sup/temp. Did not treat at that time. Denies pain. Says eyes are real itchy and still feels like she has pressure in OD. She wants to know if she is having an allergic reaction to Timolol. Dr. Vela wants to know if pt can get glasses Rx for driving. cystoid macular edema The 67 yea r old female presents for evaluation of cystoid macular edema in the right and left eyes. Pt reports no changes in VA since last exam. 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 VA stable OU. Denies pain / discomfort. Denies flashes / new floaters. H/O Kenalog on 03.28.2022 in right eye. Pt states Dr. Adams will not see her again until the fluid in eyes are gone and released from [facility] care. Pt taking Prednisolone in OD only, every 2 hours. Cystoid macular edema The 67 yea r old female presents for evaluation of Cystoid macular edema in the right eye and left eye following cataract surgery. Pt stopped using Pred and Ketorolac ~3 weeks ago. She had Yag Cap OD ~ [address] Adams. Pt states OD vision is still poor. 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 Vision is stable. Denies pain / discomfort. Denies flashes / floaters. Pt still taking eye drops as directed. 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 Vision is stable with cloudiness. No pain/discomfort. Pt did fall last , that resulted in a black eye and concussion. Pt wants to know if shes okay today, if a message could be sent to Dr. Adams. no change in vision The patient reports no change in vision in the right and left eye since her last exam 4 weeks ago. She is still taking the Ketorolac eye drop. If she is to continue the Ketorolac she will need refills. She last instilled the eye drop this morning. She has not noticed any thing such as floaters or flashes of light. There has been no eye pain or redness. 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 haloing The patient pres ents with haloing in the right and left eye since her cataract surgery. She has noticed bright lights are still very bothersome to the patient. She was on eye drops after cataract surgery that did help. Dr. Santana then tapered patient off her eye drops. She is now taking the white cap drops QID in the OD. She did not bring them with her today. She can not drive at night due to glare. She has floaters but has not noticed any changes in size shape or frequency. She has not had any flashes of light in either eye. She has not noticed any eye pain or redness of the eyes. cystoid macula edema The 66 year old female presents for evaluation of cystoid macula edema in the right eye greater then left eye not responding to prednisolone. 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 Related to Cystoid macular edema following cataract surgery, bilateral Impression/Plan Related to Cysto id macular edema following cataract surgery, bilateral Impression/Plan Related to Other visual disturbances Impression/Plan Related to Pucke ring of macula, right eye Impression/Plan Related to Vitre ous degeneration, bilateral Impression/Plan Related to Prese nce of pseudophakia Impression/Plan Related to Essen tial (primary) hypertension Return in 4-6 week(s ) with Brett Gar MD for follow up exam and OCT. Related to Cystoid macular edema following cataract surgery, bilateral Impression/Plan Related to Other visual disturbances Impression/Plan Related to Prese nce of pseudophakia Impression/Plan Related to Essen tial (primary) hypertension Impression/Plan Related to Cysto id macular edema following cataract surgery, bilateral Impression/Plan Related to Vitre ous degeneration, bilateral Impression/Plan Related to Pucke ring of macula, right eye [facility] Work Phone: [phone] Evaluation note* Type Assessment Date assessment Posterior cyclitis, right eye Ju impression Posterior cyclitis, 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 Bilateral. Condition: serious, recurrent, worsened OD; stable resolved OS. Status post STK x2 OD, last 08-08-2022, s/p Ozurdex 10/17/22 [facility] Work Phone: [phone] History of Present illness Narrative* Encounter Date Complaint History Of Prese nt Illness CME The 69 year old female presents for evaluation of CME in the right eye. Patient reports decreased vision OD that started about 1 year ago following her last treatment. She reports her vision OD as blurry and distorted. She denies vision changes OS since last visit. She reports occasional floaters, pressure feeling, and light sensitivity OD only. She denies flashes of light OU. Patient reports having a blood clot last fall and was taking Eliquis until about 1.5 weeks ago. CME OU The 68 year old patient presents for follow up of CME OU. Possible Ozurdex today. Pt states vision has not improved at all. She states she uses Dorzolamide PRN as she feels she needs. She stopped using Pred. She refuses OS dilation today. Cystoid macular edema BI The 67 year old patient presents for evaluation of Cystoid macular edema BI following cataract surgery. 2-3 week FU. Bad stabbing pain 2 weeks ago 01/09/23 OD vision blurry and worse. Occasional floater OD, patient denies flashes. No pain or discomfort today. cystoid macular edema The 67 yea r old patient presents for evaluation of cystoid macular edema following cataract surgery in the right and left eyes. VA same as last visit. Denies flashes / new floaters. IOP OD 34, pt c/o ocular pain. Dorzolamide given in office OD only at 1:18 p.m. per DBS d/t elevated IOP. CME The 67 year old female presents for evaluation of CME in the right and left eyes. VA maybe slightly improved OU. OD appears red/yellow and pt states it was dripping blood right after getting last injection, happened that whole day. Denies flashes / new floaters. Denies pain / discomfort. S/P Kenalog, last taken 07/2022. CME OU The 67 year old female presents for evaluation of CME OU. S/P Kenalog OD x 3, last 07/2022. Pt states va OD has decreased since last exam. Onset is gradual since her last visit here. She seen Dr. Vela on Thursday and said pt had a pocket of fluid sup/temp. Did not treat at that time. Denies pain. Says eyes are real itchy and still feels like she has pressure in OD. She wants to know if she is having an allergic reaction to Timolol. Dr. Vela wants to know if pt can get glasses Rx for driving. cystoid macular edema The 67 yea r old female presents for evaluation of cystoid macular edema in the right and left eyes. Pt reports no changes in VA since last exam. 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 VA stable OU. Denies pain / discomfort. Denies flashes / new floaters. H/O Kenalog on 03.28.2022 in right eye. Pt states Dr. Adams will not see her again until the fluid in eyes are gone and released from [facility]. Pt taking Prednisolone in OD only, every 2 hours. Cystoid macular edema The 67 yea r old female presents for evaluation of Cystoid macular edema in the right eye and left eye following cataract surgery. Pt stopped using Pred and Ketorolac ~3 weeks ago. She had Yag Cap OD ~ [address] Adams. Pt states OD vision is still poor. 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 Vision is stable. Denies pain / discomfort. Denies flashes / floaters. Pt still taking eye drops as directed. 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 Vision is stable with cloudiness. No pain/discomfort. Pt did fall last , that resulted in a black eye and concussion. Pt wants to know if shes okay today, if a message could be sent to Dr. Adams. no change in vision The patient reports no change in vision in the right and left eye since her last exam 4 weeks ago. She is still taking the Ketorolac eye drop. If she is to continue the Ketorolac she will need refills. She last instilled the eye drop this morning. She has not noticed any thing such as floaters or flashes of light. There has been no eye pain or redness. 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 haloing The patient pres ents with haloing in the right and left eye since her cataract surgery. She has noticed bright lights are still very bothersome to the patient. She was on eye drops after cataract surgery that did help. Dr. Santana then tapered patient off her eye drops. She is now taking the white cap drops QID in the OD. She did not bring them with her today. She can not drive at night due to glare. She has floaters but has not noticed any changes in size shape or frequency. She has not had any flashes of light in either eye. She has not noticed any eye pain or redness of the eyes. cystoid macula edema The 66 year old female presents for evaluation of cystoid macula edema in the right eye greater then left eye not responding to prednisolone. 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 Related to Cystoid macular edema following cataract surgery, bilateral Impression/Plan Related to Vitre ous degeneration, bilateral Impression/Plan Related to Prese nce of pseudophakia Impression/Plan Related to Essen tial (primary) hypertension Impression/Plan Related to Cysto id macular edema following cataract surgery, bilateral Impression/Plan Related to Pucke ring of macula, right eye Return in 6-8 week(s ) with Brett Gar MD for follow up exam and OCT. Related to Cystoid macular edema following cataract surgery, bilateral Impression/Plan Related to Cysto id macular edema following cataract surgery, bilateral Impression/Plan Related to Pucke ring of macula, right eye Impression/Plan Related to Vitre ous degeneration, bilateral Impression/Plan Related to Prese nce of pseudophakia Impression/Plan Related to Essen tial (primary) hypertension Return in 6-8 week(s ) with Brett Gar MD for follow up exam and OCT. Related to Cystoid macular edema following cataract surgery, bilateral Impression/Plan Related to Prese nce of pseudophakia Impression/Plan Related to Cysto id macular edema following cataract surgery, bilateral Impression/Plan Related to Pucke ring of macula, right eye Impression/Plan Related to Vitre ous degeneration, bilateral Impression/Plan Related to Essen tial (primary) hypertension Return in 6-8 week(s ) with Brett Gar MD for follow up exam and OCT. 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 Related to Cystoid macular edema following cataract surgery, bilateral Impression/Plan Related to Cysto id macular edema following cataract surgery, bilateral Impression/Plan Related to Other visual disturbances Impression/Plan Related to Pucke ring of macula, right eye Impression/Plan Related to Vitre ous degeneration, bilateral Impression/Plan Related to Prese nce of pseudophakia Impression/Plan Related to Essen tial (primary) hypertension Return in 4-6 week(s ) with Brett Gar MD for follow up exam and OCT. Related to Cystoid macular edema following cataract surgery, bilateral Impression/Plan Related to Prese nce of pseudophakia Impression/Plan Related to Essen tial (primary) hypertension Impression/Plan Related to Cysto id macular edema following cataract surgery, bilateral Impression/Plan Related to Vitre ous degeneration, bilateral Impression/Plan Related to Pucke ring of macula, right eye Impression/Plan Related to Other visual disturbances [facility] Work Phone: [phone] [facility] [address] [place] [address] OFFICE VISIT Date of Service: 08/25/24 0854 MR#: [id number] Acct: [id number] Name: KAREN BALLARD Rep #: [id number] : 1955 From: Zachery Snider MD Age/Sex: 69/F [place] [facility] [place]: Signed HPI Subjective Date of Service 08/25/24 Chief Complaint F/u for L DVT. History of Present Illness 69-year-old woman with multiple episodes of DVT in the left leg is referred because she has DVT in the left leg and it has been suggested she continues Eliquis for life. She had her first DVT in the left leg in the when she was on control and also smoking, was treated with Coumadin. Shehad a second episode in 1992 which she attributes to horseback riding. In December 2023, she was slammed on the left left leg by a car door and has pain in the left leg. Venous Doppler showed acute DVT in left common femoral vein left femoral vein, left deep femoral vein, left popliteal vein, left tibioperoneal trunk, left peroneal vein, left posterior tibial vein, left soleus vein, and left gastrocnemius vein on 12/21/2023. She was started on Eliquis but she wouldlike to come off. Had D-dimers done and comes for follow up. She feels well. Had L superficial vein procedure done about `15yrs ago. [facility] Medical History Osteopenia Hypertension Tobacco use Hyperlipidemia History of DVT (deep vein thrombosis) Surgical History History of tonsillectomy and adenoidectomy History of ankle surgery Hx of tubal ligation H/O myringotomy Family History Father Heart disease Respiratory disease Aunt Diabetes Mother Heart disease Leukemia Social History Smoking Status: Current every day smoker Tobacco: How many years used: 50 alcohol intake: current alcohol intake frequency: holidays/special occasions only substance use type: does not use what type of physical activity do you participate in: none Intake Vital Signs 08/17/24 14:51 08/25/24 08:54 Height 4 ft 10 in 4 ft 10 in Weight: 51.256 kg 51.795 kg BMI 23.6 23.8 BP 135/81 H 149/80 H Blood Pressure Location Lt brachial Lt brachial Position Sitting Sitting Respiration 18 15 Pulse 61 66 Pulse Source Monitor Monitor Temp 98.6 F 96.7 F L Temperature Source Temporal Artery Temporal Artery Pulse Oximetry (%) 98 98 Oxygen Delivery Method room air room air Intake Accompanied by: Self Is patient in pain?: No Allergies perfume Allergy (Unknown, Verified 08/25/24 09:01) headache venlafaxine (From Effexor) Allergy (Unknown, Verified 08/25/24 09:01) GI upset nickel Allergy (Verified 08/25/24 09:01) Rash bupropion Adverse Reaction (Unknown, Verified 08/25/24 09:01) anxiety lisinopril Adverse Reaction (Unknown, Verified 08/25/24 09:01) cough paroxetine (From Paxil) Adverse Reaction (Unknown, Verified 08/25/24 09:01) weight gain Medications ?Medication ?Instructions ?Recorded ?Confirmed ?Type apixaban 5 mg tablet (Eliquis) 5 mg PO BID 05/30/24 History sertraline 100 mg tablet 50 mg PO QDAY 05/30/2408/25 History valsartan 160 mg tablet 160 mg PO QDAY 05/30/2408/01 History rosuvastatin 10 mg tablet 10 mg PO QMWF 08/17/2408/25 History Have you fallen in the past year?: No Central Venous Access Central Venous Access: No Coding Level of Care Code Off vis,est,level 3 Exam Problem Focused Diagnoses Acute deep vein thrombosis (DVT) of femoral vein of left lower extremity I82.412 Chronicity: acute Laterality: left Assessment and Plan Assessment and Plan (1) Dvt femoral (deep venous thrombosis): Status: Chronic Qualifiers: Chronicity: acute Laterality: left Qualified Code(s): I82.412 - Acute embolism and thrombosis of left femoral vein Comment: L femoral DVT after a car door slammed on her L leg in December 2023, looks like provoked DVT. Has had multiple clots in the left leg before this episode. Has also had L vein procedure about 15yrs ago. She is on Eliquis, will like to come off. D-dimers are normal so she can go down to prophylactic dose of 2.5mg bid. Plan: To go down to Eliquis 2.5mg bid but has to stop for 2 weeks to do thrombotic risk profile. To check Thrombotic Risk profile since D-dimers are normal. Plan Details Follow Up: 4 Weeks Clinical Quality Measures Falls Risk Screening/Assistive Devices Have you fallen in the past year?: No 08/25/24 0931 D> Date _ Zachery Snider MD [facility] Signature: Date (if applicable) CC: Dr. Karthikeyan Flores MD ~ [facility]06-26-2025 Progress note Author Zachery Snider [facility] Note Date/Time August 25, 2024 9:31 am [facility] [address] [address] OFFICE VISIT Date of Service: 08/25/24 0854 MR#: [id number] Acct: [id number] Name: KAREN BALLARD Rep #: [id number] : 1955 From: Zachery Snider MD Age/Sex: 69/F Location: [facility] [place] Status: Signed HPI Subjective Date of Service 08/25/24 Chief Complaint F/u for L DVT. History of Present Illness 69-year-old woman with multiple episodes of DVT in the left leg is referred because she has DVT in the left leg and it has been suggested she continues Eliquis for life. She had her first DVT in the left leg in the when she was on control and also smoking, was treated with Coumadin. She had a second episode in 1992 which she attributes to horseback riding. In December 2023, she was slammed on the left left leg by a car door and has pain in the left leg. Venous Doppler showed acute DVT in left common femoral vein left femoral vein, left deep femoral vein, left popliteal vein, left tibioperoneal trunk, left peroneal vein, left posterior tibial vein, left soleus vein, and left gastrocnemius vein on 12/21/2023. She was started on Eliquis but she wouldlike to come off. Had D-dimers done and comes for follow up. She feels well. Had L superficial vein procedure done about `15yrs ago. [facility] Medical History Osteopenia Hypertension Tobacco use Hyperlipidemia History of DVT (deep vein thrombosis) Surgical History History of tonsillectomy and adenoidectomy History of ankle surgery Hx of tubal ligation H/O myringotomy Family History Father Heart disease Respiratory disease Aunt Diabetes Mother Heart disease Leukemia Social History Smoking Status: Current every day smoker Tobacco: How many years used: 50 alcohol intake: current alcohol intake frequency: holidays/special occasions only substance use type: does not use what type of physical activity do you participate in: none Intake Vital Signs 08/17/24 14:51 08/25/24 08:54 Height 4 ft 10 in 4 ft 10 in Weight: 51.256 kg 51.795 kg BMI 23.6 23.8 BP 135/81 H 149/80 H Blood Pressure Location Lt brachial Lt brachial Position Sitting Sitting Respiration 18 15 Pulse 61 66 Pulse Source Monitor Monitor Temp 98.6 F 96.7 F L Temperature Source Temporal Artery Temporal Artery Pulse Oximetry (%) 98 98 Oxygen Delivery Method room air room air Intake Accompanied by: Self Is patient in pain?: No Allergies perfume Allergy (Unknown, Verified 08/25/24 09:01) headache venlafaxine (From Effexor) Allergy (Unknown, Verified 08/25/24 09:01) GI upset nickel Allergy (Verified 08/25/24 09:01) Rash bupropion Adverse Reaction (Unknown, Verified 08/25/24 09:01) anxiety lisinopril Adverse Reaction (Unknown, Verified 08/25/24 09:01) cough paroxetine (From Paxil) Adverse Reaction (Unknown, Verified 08/25/24 09:01) weight gain Medications ?Medication ?Instructions ?Recorded ?Confirmed ?Type apixaban 5 mg tablet (Eliquis) 5 mg PO BID 05/30/24 History sertraline 100 mg tablet 50 mg PO QDAY 05/30/2408/25 History valsartan 160 mg tablet 160 mg PO QDAY 05/30/2408/01 History rosuvastatin 10 mg tablet 10 mg PO QMWF 08/17/2408/25 History Have you fallen in the past year?: No Central Venous Access Central Venous Access: No Coding Level of Care Code Off vis,est,level 3 Exam Problem Focused Diagnoses Acute deep vein thrombosis (DVT) of femoral vein of left lower extremity I82.412 Chronicity: acute Laterality: left Assessment and Plan Assessment and Plan (1) Dvt femoral (deep venous thrombosis): Status: Chronic Qualifiers: Chronicity: acute Laterality: left Qualified Code(s): I82.412 - Acute embolism and thrombosis of left femoral vein Comment: L femoral DVT after a car door slammed on her L leg in December 2023, looks like provoked DVT. Has had multiple clots in the left leg before this episode. Has also had L vein procedure about 15yrs ago. She is on Eliquis, will like to come off. D-dimers are normal so she can go down to prophylactic dose of 2.5mg bid. Plan: To go down to Eliquis 2.5mg bid but has to stop for 2 weeks to do thrombotic risk profile. To check Thrombotic Risk profile since D-dimers are normal. Plan Details Follow Up: 4 Weeks Clinical Quality Measures Falls Risk Screening/Assistive Devices Have you fallen in the past year?: No 08/25/24 0931 <Electronically signed by Zachery Silva> Date _ Zachery Babb Signature: Date (if applicable) CC: Dr. Karthikeyan Flores MD ~ [facility] Work Phone: 1(528) 852-562706-18-2025 Evaluation note* Diagnosis Onset Date Resolution Status Admit Date Dvt femoral (deep venous thrombosis) chronic August 17, 2024 2:41pm Dvt femoral (deep venous thrombosis) chronic August 25, 2024 8:54am [facility] Work Phone: 1(461) 117-477706-18-2025 Evaluation note* Diagnosis Onset Date Resolution Status Admit Date Dvt femoral (deep venous thrombosis) chronic August 17, 2024 2:41pm Dvt femoral (deep venous thrombosis) chronic August 25, 2024 8:54am Dvt femoral (deep venous thrombosis) chronic September 22, 2024 10:16am Heterozygous factor V Leiden mutation chronic September 22, 2024 10:16am [facility] Work Phone: 1(558) 168-494108-07-2023 Procedure [facility] Consult note* Clinical Note Date No Information [facility] Work Phone: Discharge summary* Clinical Note Date No Information [facility] Work Phone: Evaluation noteNo assessment information available [facility] Work Phone: Evaluation note* Diagnosis Onset Date Resolution Status Admit Date Dvt femoral (deep venous thrombosis) acute August 17, 2024 2:41pm [facility] Work Phone: History and physical note* Clinical Note Date No Information [facility] Work Phone: Progress note* Clinical Note Date No Information [facility] Work Phone: Reason for referral (narrative)No reason for referral [facility]: Reason for referral (narrative)* Reason For Referral No Information [facility] Work Phone: Advance Directives Advance Directive Response Recorded Date/ Time Advance Directives No August 29 1:30pm Living Will No August 29, 2014 1:30pm Power of Ice Skater No August 29 5 1:30pm Advance Directive Response Recorded Date/ Time Advance Directives No August 29 2:30pm Living Will No August 29, 2014 2:30pm Power of Ice Skater No August 29 5 2:30pm Advance Directive Response Recorded Date/ Time Advance Directives No August 29 2:30pm Directive Yes / No Effective Date File Name No Information Chief Complaint and Reason for Visit From encounter dated 12/02/2024 09:30'. cystoid macular edema following cataract chris (chief complaint). Description: The 69 year old patient presents for evaluation of cystoid macular edema following cataract surgery in the right and left eyes. Patient states stable vision OU since last visit. New floaters OD started yesterday. Denies pain/discomfort OU. Patient refused to be dilated in OS due to driving. Chief Complaint ongong cough since F eb; chronic smoker. Chief Complaint ongong cough since F eb; chronic smoker. NICOTINE DEPENDENCE NICOTINE DEPENDENCE Chief Complaint Admit Date Amb Documentation May 30, 2024 4:3 0pm Chief Complaint Admit Date Amb Documentation May 30, 2024 4:3 0pm NEW - DVT August 17, 2024 2:41 pm MED ONC August 17, 2024 3:35 pm Reason for Visit Admit Date Dvt femoral (deep venous thrombosis) Jul 2:41pm Chief Complaint Admit Date Amb Documentation May 30, 2024 4:3 0pm NEW - DVT August 17, 2024 2:41 pm MED ONC August 17, 2024 3:35 pm [facility] August 25, 2024 8:54 am Reason for Visit Admit Date Dvt femoral (deep venous thrombosis) Jul 2:41pm Dvt femoral (deep venous thrombosis) Jul 8:54am Chief Complaint Admit Date Amb Documentation May 30, 2024 4:3 0pm NEW - DVT August 17, 2024 2:41 pm [facility] August 25, 2024 8:54 am SCREENING September 06, 2024 9:45a m MED ONC September 08, 2024 9:00 am Chief Complaint Admit Date Amb Documentation May 30, 2024 4:3 0pm NEW - DVT August 17, 2024 2:41 pm [facility] August 25, 2024 8:54 am SCREENING September 06, 2024 9:45a m MED ONC September 08, 2024 9:00 am [facility] September 22, 2024 10:1 6am Reason for Visit Admit Date Dvt femoral (deep venous thrombosis) Jul 2:41pm Dvt femoral (deep venous thrombosis) Jul 8:54am Dvt femoral (deep venous thrombosis) Aug 10:16am Heterozygous factor V Leiden mutation Ju ly 2024 10:16am Family History Relationship Condition Age at Onset Recorded Date/T taylor father Cardiac disease Unknown Disorder of respiratory system Unknown aunt Diabetes mellitus Unknown mother Cardiac disease Unknown Leukemia Unknown Family Member Type Diagnosis Age At Onset No Information Summary Purpose Additional Source Comments Goals (unrecognized section and content) Health Concern Goal Type Priority Status No Information Care Teams (unrecognized sec tion and content) Team Status: Active Member Role Status Dates Dr. Jess Gonzalez MD Family Provider Active Dr. Karthikeyan Flores MD Primary Care Provider Active Team Status: Inactive Member Role Status Dates Dr. Karthikeyan Flores MD Primary Care Provider Active SHILPI Sahu Attending Provider, Referring Pr cesilia Active Team Status: Active Member Role Status Dates Dr. Karthikeyan Flores MD Primary Care Provider Active SHILPI Sahu Referring Provider, Other Provid er Active Dr. Guillermo Hameed MD Attending Provider Active Team Status: Inactive Member Role Status Dates Dr. Karthikeyan Flores MD Primary Care Provider, Attend ing Provider Active Team Status: Inactive Member Role Status Dates Dr. Karthikeyan Flores MD Primary Care Provider Active Start: May 27, 2024 End: May 27, 2024 Dr. Karthikeyan Flores MD Attending Provider Active Start: May 27, 2024 End: May 27, 2024 Dr. Karthikeyan Flores MD Referring Provider Active Start: May 27, 2024 End: May 27, 2024 Team Status: Active Member Role Status Dates Dr. Karthikeyan Flores MD Primary Care Provider Active Start: May 30, 2024 Radha Funes Attending Provider Active Start: May 30, 2024 Team Status: Active Member Role Status Dates Dr. Karthikeyan Flores MD Primary Care Provider Active Team Status: Inactive Member Role Status Dates Dr. Karthikeyan Flores MD Primary Care Provider Active Start: August 17, 2024 End: August 17, 2024 Dr. Karthikeyan Flores MD Referring Provider Active Start: August 17, 2024 End: August 17, 2024 Dr. Zachery Snider MD Attending Provider Active S tart: August 17, 2024 End: August 17, 2024 Team Status: Active Member Role Status Dates Dr. Karthikeyan Flores MD Primary Care Provider Active Start: August 17, 2024 Dr. Zachery Snider MD Attending Provider Active S tart: August 17, 2024 Dr. Zachery Snider MD Referring Provider Active S tart: August 17, 2024 Team Status: Inactive Member Role Status Dates Dr. Karthikeyan Flores MD Primary Care Provider Active Start: August 25, 2024 End: August 25, 2024 Dr. Karthikeyan Flores MD Referring Provider Active Start: August 25, 2024 End: August 25, 2024 Dr. Zachery Snider MD Attending Provider Active S tart: August 25, 2024 End: August 25, 2024 Team Status: Active Member Role/Relationship Status Dates Dr. Karthikeyan Flores MD Primary Care Provider Active Team Status: Inactive Member Role/Relationship Status Dates Dr. Karthikeyan Flores MD Primary Care Provider Active Start: May 27, 2024 End: May 27, 2024 Dr. Karthikeyan Flores MD Attending Provider Active Start: May 27, 2024 End: May 27, 2024 Dr. Karthikeyna Flores MD Referring Provider Active Start: May 27, 2024 End: May 27, 2024 Team Status: Active Member Role/Relationship Status Dates Dr. Karthikeyan Flores MD Primary Care Provider Active Start: May 30, 2024 Radha Funes Attending Provider Active Start: May 30, 2024 Team Status: Inactive Member Role/Relationship Status Dates Dr. Karthikeyan Flores MD Primary Care Provider Active Start: August 17, 2024 End: August 17, 2024 Dr. Karthikeyan Flores MD Referring Provider Active Start: August 17, 2024 End: August 17, 2024 Dr. Zachery Snider MD Attending Provider Active S tart: August 17, 2024 End: August 17, 2024 Team Status: Inactive Member Role/Relationship Status Dates Dr. Karthikeyan Flores MD Primary Care Provider Active Start: August 25, 2024 End: August 25, 2024 Dr. Karthikeyan Flores MD Referring Provider Active Start: August 25, 2024 End: August 25, 2024 Dr. Zachery Snider MD Attending Provider Active S tart: August 25, 2024 End: August 25, 2024 Team Status: Inactive Member Role/Relationship Status Dates Dr. Karthikeyan Flores MD Primary Care Provider Active Start: September 06, 2024 End: September 06, 2024 Dr. Karthikeyan Flores MD Attending Provider Active Start: September 06, 2024 End: September 06, 2024 Dr. Karthikeyan Flores MD Referring Provider Active Start: September 06, 2024 End: September 06, 2024 Team Status: Active Member Role/Relationship Status Dates Dr. Karthikeyan Flores MD Primary Care Provider Active Start: September 08, 2024 Dr. Zachery Snider MD Attending Provider Active S tart: September 08, 2024 Dr. Zachery Snider MD Referring Provider Active S tart: September 08, 2024 Name Effective Dates (start - stop) Status Members No Information Team Status: Inactive Member Role/Relationship Status Dates Dr. Karthikeyan Flores MD Primary Care Provider Active Start: September 22, 2024 End: September 22, 2024 Dr. Karthikeyan Flores MD Referring Provider Active Start: September 22, 2024 End: September 22, 2024 Dr. Zachery Snider MD Attending Provider Active S tart: September 22, 2024 End: September 22, 2024 INFORMATION SOURCE (unrecogn ized section and content) DATE CREATED AUTHOR 10/03/2024 [facility] DATE CREATED AUTHOR AUTHOR'S ORGANIZ ATION 12/06/2024 [facility] FOR RECORDS PERTAINING TO PATIENTS WHO ARE OR HAVE BEEN ENROLLED IN A CHEMICAL DEPENDENCY/SUBSTANCEABUSE PROGRAM, SOME INFORMATION MAY BE OMITTED. This clinical summary was aggregated from multiple sources. Caution should be exercised in using it in the provision of clinical care. This summary normalizes information from multiple sources, and as a consequence, information in this document may materially change the coding, format and clinical context of patient data. In addition, data may be omitted in some cases. CLINICAL DECISIONS SHOULD BE BASED ON THE PRIMARY CLINICAL RECORDS. [facility], [facility]. provides no warranty or guarantee of the accuracy or completeness of information in this document.
[2025-03-01 17:28] LABS: Hematocrit 40.3 % (37-47); Hemoglobin 14.0 g/dL (12.0-15.0); Immature Granulocytes Count 0.020 X10^3/uL (0.0-0.0); Mean Corp Hgb Conc 34.7 g/dL (32-36); Mean Corpuscular Volume 98.5 fL (81-99); Mean Platelet Vol. 10.3 fl (6.2-12.0); NRBC Flagged by Analyzer 0 % (0-5); Platelet Count 283 K/mm3 (150-450); RBC Distribution Width CV 13.9 % (11.6-14.6); RBC Distribution Width SD 49.9 fl (35.1-43.9); Red Blood Count 4.09 M/mm3 (4.2-5.4); White Blood Count 7.2 K/mm3 (4.4-11.0)
[2025-03-01 17:55] LABS: AST(SGOT) 20 U/L (<=31); Alanine Aminotransfer ALT/SGPT 10 U/L (<=34); Albumin, Serum 4.7 g/dL (3.4-4.8); Alkaline Phosphatase 74 U/L (35-104); Anion Gap 12 (7-18); BUN 14 mg/dL (4-19); BUN/Creat Ratio 21.8 RATIO (10-20); Calcium,Total 10.3 mg/dL (7.6-11.0); Carbon Dioxide 23.7 mmol/L (20.0-29.0); Chloride 99 mmol/L (96-106); Cholesterol 284 mg/dL (<=200); Globulin 2.6 g/dL (2.2-4.2); Glucose 106 mg/dL (70-99); Low Density Lipoprotein Calc. 189 mg/dL; Magnesium 1.8 mg/dL (1.5-2.2); Potassium 4.4 mmol/L (3.5-5.1); Triglycerides 111 mg/dL; Very Low Density Lipoprotein 22 mg/dL (5-40); Vitamin D,25 Hydroxy 37.0 ng/mL (30-100); cholesterol:hdl ratio screen 3.76
[2025-03-01 18:16] LABS: Color, Urine Yellow (Yellow); Glucose, Dipstick Normal (Normal); Ketone-Dipstick Negative (Negative); Leukocyte Esterase-Dipstick Negative /ul (Negative); Nitrite-Dipstick Negative (Negative); Occult Blood-Urine Negative /ul (Negative); Protein-Dipstick 15 mg/dl (Negative); Specific Gravity, Urine 1.020 (1.002-1.030); Urine Bilirubin Dipstick Negative (Negative)
[2025-03-01 19:08] LABS: Squamous Epithelial Cells - UA 5-10 SEEN /hpf (5-10)
[2025-03-01 19:11] LABS: Mucous, Urine 1+ /hpf (<or=2+)
== END | disposition home or self-care (01) ==
LOC: MFPLAB 14:16
PROVIDERS: PCP Family Medicine; Visit Provider Family Medicine
DX: R73.02 Impaired glucose tolerance (oral) (principal); I10 Essential (primary) hypertension; E78.5 Hyperlipidemia, unspecified; E55.9 Vitamin D deficiency, unspecified
CPT/HCPCS: 36415; 80053; 80061; 81001; 82306; 83036; 83735; 85025